=== PATIENT | male | born 1990 | race Caucasian/White ===

== ENCOUNTER 2023-07-16 09:55 | Outpatient (OUT) | payer OTHER, SELFPAY ==
--- NOTE | 2023-07-16 | US_ITS ---
The [address] [address] Patient Name: LULY SANDHU MRN: [id number] date: 1990 Sex: M Assigned Patient Location: [place] Current Patient Location: Accession/Order Number: [id number] Exam Date: 07/16/2023 10:03 Report Date: 07/17/2023 08:40 At the request of: DAVI RODRIGUEZ Procedure: US right upper quadrant EXAM: US right upper quadrant HISTORY: . RUQ ABD PAIN, LUMP R10.11 . COMPARISON: None. TECHNIQUE: Arzola scale and color imaging was performed FINDINGS: The pancreas was obscured due to overlying bowel gas. Scanning of the liver demonstrates mild increased echogenicity of liver consistent with fatty infiltration of liver. The liver is normal in size. Color-flow is noted in the portal and hepatic veins. There is minimal sludge within the gallbladder. No gallstones are noted. No gallbladder wall thickening is noted. Patient had no pain upon scanning over the gallbladder. Common bile duct measures 2 mm. Right kidney measure 11.1 x 5.4 x 5.8 cm. Color-flow is noted. No solid renal cortical masses or hydronephrosis is noted. Scanning of the epigastric region demonstrates no discrete mass solid or cystic within the soft tissues. No fluid is noted in the right upper quadrant. US/US right upper quadrant IMPRESSION: 1. Increased echogenicity of liver consistent with fatty infiltration of liver. 2. Small amount of sludge within the gallbladder. No gallstones. No gallbladder wall thickening. 3. The pancreas was obscured due to overlying bowel gas. 4. No discrete mass was noted in the soft tissues of the upper abdomen regional to the patient's area of concern. Electronically authenticated by: GARETT VENEGAS Date: 07/17/2023 08:40
== END 2023-07-16 09:56 | disposition home or self-care (01) ==
PROVIDERS: PCP Family Medicine; Visit Provider Family Medicine
DX: R10.11 Right upper quadrant pain (principal)
CPT/HCPCS: 76705

== ENCOUNTER 2023-07-21 20:30 | Emergency (ER) | payer OTHER, SELFPAY ==
[2023-07-21 20:35] VITALS: BP 155/89; PULSE 69; TEMP 36.7; O2SAT 98; BMI 30.8
--- OUTSIDE RECORDS SUMMARY | 2023-07-21 20:37 | XMS_ITS | CCD ---
Author Organization [facility] Inform ion Partnership [facility] CliniSywy Care Team Providers Care Bootmaker Name Role Phone KUMARALINGAM, MARINA Unavailable Unavailabl e KUMARALINGAM, MARINA Unavailable Unavailabl e Nickolas Lim Unavailable Unavailable NICKOLAS LIM Unavailable Unavailable MISBrittnee, DR HOU Primary Care Unavailable JAGDISH, MALLORY Attending Unavailable JAGDISH, MALLORY Consulting Unavailable JAGDISH, MALLORY Admitting Unavailable JENIFER BARNARD Consulting Unavailable ABI, DR HERNANDEZ Edwards Consulting Unavailable JENNIFER, DR DAVI Mares Attending Unavailable JENNIFER, DR DAVI Mares Primary Care Unavailable JENNIFER, DR DAVI Mares Admitting Unavailable NADEREJerry, DR DAVI Mares Consulting Unavailable DAVI RODRIGUEZ Primary Care Physician Emigdio HORVATH Attending Unavailable HORVATH, Emigdio Edwards Attending Unavailable HORVATH, Emigdio Edwards Attending Unavailable Horvath, Emigdio Admitting Unavailable Yuliet, Emigdio Attending Unavailable Nickolas Lim Primary Care Unavailable NADDAVI PAL Attending Unavailable Allergies Allergy Classification Reported Allergen(s) Allergy Type Date of Onset Reaction(s) Facility (2 sources) No Known Medication Allergies; Translations: [No Known Medication Allergies] Propensity to adverse reactions to drug (disorder) [facility] Repository Problems Problem Classification Problem Date Documented Date Episodic/Chronic Contraceptive and procreative management (1 source) Contraception status; Translations: [Encounter for other general counseling and advice on contraception] Onset: 04-12-2022 Episodic Nausea and vomiting (1 source) Vomiting, unspecified; Translations: [VOMITING UNSPECIFIED] Onset: 12-11-2021 Episodic Nonspecific chest pain (5 sources) Chest pain, unspecified; Translations: [Other chest pain] Onset: 12-11-2021 Episodic Substance-related disorders (1 source) Nicotine dependence, cigarettes, uncomplicated; Translations: [NICOTINE DEPEND CIGARETTES UNCOMP] Onset: 12-11-2021 Chronic Unclassified (2 sources) Patient encounter status 04-12-2022 Unclassified (1 source) Encounter for sterilization; Translations: [Encounter for sterilization] Onset: 07-02-2022 Results Test Name Value Interpretation Reference Range Facility Ambulatory Visit Summaryon 0 07-16-2022 Ambulatory Visit Summary LULY SANDHU :1990 Visit Date:07/16/2022 Ambulatory Visit Instructions Your Diagnosis Status post vasectomy Your Care Team Attending Physician - Emigdio HORVATH MD Primary Care Physician - DAVI RODRIGUEZ MD Procedures Performed Vasectomy (07/02/2022). Discharge Vitals Heart Rate (Peripheral) 79 Respiratory Rate 16 Blood Pressure 130/86 Height 187 cm Height 74 in Weight 114 kg Weight 250.8 lb BMI 32.6 What to do next You Need to Schedule the Following Appointments Follow Up with YULIET CARR, Emigdio Edwards, URL When: Where: [facility] [address] [place] [address]- Allergies No Known Medication Allergies Problems Ongoing - Any problem that you are currently receiving treatment for. Encounter for vasectomy assessment Status post vasectomy Education Materials Contraception Choices Contraception, also called control, refers to methods or devices that prevent . Hormonal methods Contraceptive implant A contraceptive implant is a thin, plastic tube that contains a hormone that prevents . It is different from an intrauterine device (IUD). It is inserted into the upper part of the arm by a health care provider. Implants can be effective for up to 3 years. Progestin-only injections Progestin-only injections are injections of progestin, a synthetic form of the hormone progesterone. They are given every 3 months by a health care provider. control pills control pills are pills that contain hormones that prevent . They must be taken once a day, preferably at the same time each day. A prescription is needed to use this method of contraception. control patch The control patch contains hormones that prevent . It is placed on the skin and must be changed once a week for three weeks and removed on the fourth week. A prescription is needed to use this method of contraception. Vaginal ring A vaginal ring contains hormones that prevent . It is placed in the vagina for three weeks and removed on the fourth week. After that, the process is repeated with a new ring. A prescription is needed to use this method of contraception. Emergency contraceptive Emergency contraceptives prevent after unprotected sex. They come in pill form and can be taken up to 5 days after sex. They work best the sooner they are taken after having sex. Most emergency contraceptives are available without a prescription. This method should not be used as your only form of control. Barrier methods Male condom A male condom is a thin sheath that is worn over the penis during sex. Condoms keep sperm from going inside a woman's body. They can be used with a sperm-killing substance (spermicide) to increase their effectiveness. They should be thrown away after one use. Female condom A female condom is a soft, loose-fitting sheath that is put into the vagina before sex. The condom keeps sperm from going inside a woman's body. They should be thrown away after one use. Diaphragm A diaphragm is a soft, dome-shaped barrier. It is inserted into the vagina before sex, along with a spermicide. The diaphragm blocks sperm from entering the uterus, and the spermicide kills sperm. A diaphragm should be left in the vagina for 6?8 hours after sex and removed within 24 hours. A diaphragm is prescribed and fitted by a health care provider. A diaphragm should be replaced every 1?2 years, after giving , after gaining more than 15 lb (6.8 kg), and after pelvic surgery. Cervical cap A cervical cap is a round, soft latex or plastic cup that fits over the cervix. It is inserted into the vagina before sex, along with spermicide. It blocks sperm from entering the uterus. The cap should be left in place for 6?8 hours after sex and removed within 48 hours. A cervical cap must be prescribed and fitted by a health care provider. It should be replaced every 2 years. Sponge A sponge is a soft, circular piece of polyurethane foam with spermicide in it. The sponge helps block sperm from entering the uterus, and the spermicide kills sperm. To use it, you make it wet and then insert it into the vagina. It should be inserted before sex, left in for at least 6 hours after sex, and removed and thrown away within 30 hours. Spermicides Spermicides are chemicals that kill or block sperm from entering the cervix and uterus. They can come as a cream, jelly, suppository, foam, or tablet. A spermicide should be inserted into the vagina with an applicator at least 10?15 minutes before sex to allow time for it to work. The process must be repeated every time you have sex. Spermicides do not require a prescription. Intrauterine contraception Intrauterine device (IUD) An IUD is a T-shaped device that is put in a woman's uterus. There are two types: ? Hormone IUD.This type cont (more content not included)... Normal [facility] Patient Educationon 07-17-19 Patient Education Obstetrics and Gynec ology Contraception Choices Contraception, also called control, refers to methods or devices that prevent . Hormonal methods Contraceptive implant A contraceptive implant is a thin, plastic tube that contains a hormone that prevents . It is different from an intrauterine device (IUD). It is inserted into the upper part of the arm by a health care provider. Implants can be effective for up to 3 years. Progestin-only injections Progestin-only injections are injections of progestin, a synthetic form of the hormone progesterone. They are given every 3 months by a health care provider. control pills control pills are pills that contain hormones that prevent . They must be taken once a day, preferably at the same time each day. A prescription is needed to use this method of contraception. control patch The control patch contains hormones that prevent . It is placed on the skin and must be changed once a week for three weeks and removed on the fourth week. A prescription is needed to use this method of contraception. Vaginal ring A vaginal ring contains hormones that prevent . It is placed in the vagina for three weeks and removed on the fourth week. After that, the process is repeated with a new ring. A prescription is needed to use this method of contraception. Emergency contraceptive Emergency contraceptives prevent after unprotected sex. They come in pill form and can be taken up to 5 days after sex. They work best the sooner they are taken after having sex. Most emergency contraceptives are available without a prescription. This method should not be used as your only form of control. Barrier methods Male condom A male condom is a thin sheath that is worn over the penis during sex. Condoms keep sperm from going inside a woman's body. They can be used with a sperm-killing substance (spermicide) to increase their effectiveness. They should be thrown away after one use. Female condom A female condom is a soft, loose-fitting sheath that is put into the vagina before sex. The condom keeps sperm from going inside a woman's body. They should be thrown away after one use. Diaphragm A diaphragm is a soft, dome-shaped barrier. It is inserted into the vagina before sex, along with a spermicide. The diaphragm blocks sperm from entering the uterus, and the spermicide kills sperm. A diaphragm should be left in the vagina for 6?8 hours after sex and removed within 24 hours. A diaphragm is prescribed and fitted by a health care provider. A diaphragm should be replaced every 1?2 years, after giving , after gaining more than 15 lb (6.8 kg), and after pelvic surgery. Cervical cap A cervical cap is a round, soft latex or plastic cup that fits over the cervix. It is inserted into the vagina before sex, along with spermicide. It blocks sperm from entering the uterus. The cap should be left in place for 6?8 hours after sex and removed within 48 hours. A cervical cap must be prescribed and fitted by a health care provider. It should be replaced every 2 years. Sponge A sponge is a soft, circular piece of polyurethane foam with spermicide in it. The sponge helps block sperm from entering the uterus, and the spermicide kills sperm. To use it, you make it wet and then insert it into the vagina. It should be inserted before sex, left in for at least 6 hours after sex, and removed and thrown away within 30 hours. Spermicides Spermicides are chemicals that kill or block sperm from entering the cervix and uterus. They can come as a cream, jelly, suppository, foam, or tablet. A spermicide should be inserted into the vagina with an applicator at least 10?15 minutes before sex to allow time for it to work. The process must be repeated every time you have sex. Spermicides do not require a prescription. Intrauterine contraception Intrauterine device (IUD) An IUD is a T-shaped device that is put in a woman's uterus. There are two types: ? Hormone IUD.This type contains progestin, a synthetic form of the hormone progesterone. This type can stay in place for 3?5 years. ? Copper IUD.This type is wrapped in copper wire. It can stay in place for 10 years. Permanent methods of contraception Female tubal ligation In this method, a woman's fallopian tubes are sealed, tied, or blocked during surgery to prevent eggs from traveling to the uterus. Hysteroscopic sterilization In this method, a small, flexible insert is placed into each fallopian tube. The inserts cause scar tissue to form in the fallopian tubes and block them, so sperm cannot reach an egg. The procedure takes about 3 months to be effective. Another form of control must be used during those 3 months. Male sterilization This is a procedure to tie off the tubes that carry sperm (vasectomy). After the procedure, the man ca (more content not included)... Normal [facility] Urology Office/Clinic Noteon 07-16-2022 Urology Office/Clinic Note History of Present Illness Tests reviewed: reviewed path. I have reviewed the previous health record information and history for this patient from Dr. Horvath. I have reviewed and verified the staff HPI to be accurate for this encounter. There have been no associated fever, chills, flank pain, or blood in the urine. Denies any urinary infections since last encounter. Review of Systems ROS - Provider Constitutional: denies weight loss, denies hot flashes. Eyes: denies eye problems. Gastrointestinal: denies nausea, denies vomiting. Cardiovascular: denies chest pain or angina. Integumentary: no dryness Musculoskeletal: denies musculoskeletal symptoms. ENMT: denies otolaryngeal symptoms. Respiratory: no shortness of breath. Heme/Lymph: denies easy bleeding tendency, denies easy bruising tendency. Psychiatric: no confusion, no anxiety. Genitourinary: See HPI. Physical Exam General Appearance: alert, no distress, well nourished, well developed male. Genitourinary: normal scrotum, normal testes, normal urethra, normal epididymis, normal vas deferens/spermatic cord. Flank Pain: none. Bladder: nonpalpable. Assessment/Plan 1. Status post vasectomy (Z98.52: Vasectomy status) S/p Vasectomy 07/02/22. No sample provided for UA today. He is aware that he is not sterile until he has 2 negative semen analysis which will be checked after about two months and after 20-30 ejaculations. He should deliver the semen specimen to the lab within 30 min. of ejaculation and he will call one week later to get the results. Follow up PRN. Pt understands and agrees with plan. Follow-up With When Contact Information YULIET CARR, Emigdio Edwards, URL [facility] [address], [place] [address]- Additional Instructions: PRN Patient Education Contraception Choices I, Melissa Beaulieu, personally scribed for Dr. Horvath on 07/16/2022 08:09:09. . Documentation recorded by the scribe, Melissa Beaulieu, accurately reflects the services(s) I performed and decisions made by me. Authenticated by Dr. Horvath on 07/16/2022 08:26:19. Problem List/Past Medical History Ongoing Encounter for vasectomy assessment Status post vasectomy Historical No qualifying data Procedure/Surgical History Vasectomy (07/02/2022). Medications No active medications Allergies No Known Medication Allergies Social History Tobacco 4 or less cigarettes(less than 1/4 pack)/day in last 30 days Tobacco Use:. Cigarettes, 04/12/2022 Family History Family history is negative Immunizations Vaccine Date Status measles/mumps/rubella virus vaccine 10/23/2004 Recorded DTaP, unspecified formulation 09/20/1996 Recorded Hib, unspecified formulation 10/09/1993 Recorded DTaP, unspecified formulation 10/09/1993 Recorded measles/mumps/rubella virus vaccine 10/31/1992 Recorded Hib, unspecified formulation 10/31/1992 Recorded Hib, unspecified formulation 03/28/1992 Recorded Hib, unspecified formulation 1991 Recorded Normal [facility] Comment on above: Result Comment: Elec tronically Signed By: Emigdio HORVATH MD\.br\Date and Time Signed: 07/16/22 08:26 EDT\.br\Electronically Co-Signed By: Melissa Beaulieu\.br\Date and Time Co-Signed: 07/16/22 08:10 EDT Pathology Noteon 07-08-2022 Pathology Note [id number]:127 Normal [facility] Operative Reporton Operative Report [id number]:127 [facility] 07-02-2022 L ------ Specimen: [id number] Received: 07/02/22 Status: DEREK Middleton Num: [id number] Spec Type: Surgical Subm Dr: Emigdio Horvath MD Tissues: A VAS DEFERENS - sterilization (LT VAS DEF) B VAS DEFERENS - sterilization (RT VAS DEF) Procedures: Nelia MARTINEZ/Rohit L2/2 Age/ Patient Sex Location Account Attending Physician Luly Sandhu 32/M ALEXANDRA [id number] Emigdio Horvath MD SPEC NUM: [id number] RECD: 07/02/22 STATUS: DEREK MIDDLETON NUM: [id number] CHING: 07/02/22- SUBM DR: Emigdio Horvath MD ENTERED: 07/02/22 [facility] DR: [facility] SPEC TYPE: Surgical DEPT: S ENTERED BY: [id number] RECV BY: [id number] ORDERED: HE/2, Gross/Micro L2/2 ORDERED: HE/2, Gross/Micro L2/2 Pathological Diagnosis A. Vas deferens, left, vasectomy: - Segment of vas deferens with complete lumen. B. Vas deferens, right, vasectomy: - Segment of vas deferens with complete lumen. Clinical Information Sterilization Gross Description A. Received in formalin labeled with the patient's name, number and left vas deferens segment is a 0.4 x 0.3 x 0.3 cm james mathews tubular tissue. Entirely submitted in one cassette labeled A1. B. Received in formalin labeled with the patient's name, number and right vas deferens segment is a 0.8 x 0.3 x 0.3 cm james mathews tubular tissue with a pinpoint lumen on cut section. Entirely submitted in one cassette labeled B1. Specimen: [id number] Received: 07/02/22 Status: DEREK Middleton Num: [id number] Spec Type: Surgical Subm Dr: Emigdio Horvath MD Tissues: A VAS DEFERENS - sterilization (LT VAS DEF) B VAS DEFERENS - sterilization (RT VAS DEF) Procedures: HE/2, Gross/Micro L2/2 Patient: Luly Sandhu S [id number] (Continued) Specimen: [id number] Received: 07/02/22 (Continued) Signed (signature on file) Sixto Obregon MD 07/05/22 0940 Specimen: [id number] Received: 07/02/22 Status: DEREK Middleton Num: [id number] Spec Type: Surgical Subm Dr: Emigdio Horvath MD Tissues: A VAS DEFERENS - sterilization (LT VAS DEF) B VAS DEFERENS - sterilization (RT VAS DEF) Procedures: Nelia MARTINEZ/Rohit L2/2 Patient: PhoebeLuly S [id number] (Continued) Specimen: [id number] Received: 07/02/22 (Continued) Microscopic Description A. One H E slide reviewed. The microscopic examination confirms the diagnosis. B. One H E slide reviewed. The microscopic examination confirms the diagnosis. CPT Codes 53308?2 Specimen: [id number] Received: 07/02/22 Status: DEREK Middleton Num: [id number] Spec Type: Surgical Subm Dr: Emigdio Horvath MD Tissues: A VAS DEFERENS - sterilization (LT VAS DEF) B VAS DEFERENS - sterilization (RT VAS DEF) Procedures: HE/2, Gross/Micro L2/2 Patient: Luly Sandhu [id number] (Continued) Signed (signature on file) Sixto Obregon MD 07/05/22 0940 [facility] Formson 04-14-2022 Forms [id number]#[id number]:127 [facility] Consent for Procedure/Surger yon 04-13-2022 Consent for Procedure/Surgery [id number]:127 [facility] Patient Educationon 04-12-19 Patient Education Urology Vasectomy, Care After This sheet gives you information about how to care for yourself after your procedure. Your health care provider may also give you more specific instructions. If you have problems or questions, contact your health care provider. What can I expect after the procedure? After your procedure, it is common to have: ? Mild pain, swelling, redness, or discomfort in your scrotum. ? Some blood coming from your incisions or puncture sites for one or two days. ? Blood in your semen. Follow these instructions at home: Medicines ? Take njgo-dsc-qzdcyap and prescription medicines only as told by your health care provider. ? Avoid taking NSAIDs such as aspirin and ibuprofen, because these medicines can make bleeding worse. Activity ? For the first 2 days after surgery, avoid physical activity and exercise that require a lot of energy. Ask your health care provider what activities are safe for you. ? Do not participate in sports or perform heavy physical labor until your pain has improved, or until your health care provider says it is okay. ? Do not ejaculate for at least 1 week after the procedure, or as long as directed. ? You may resume sexual activity 7?10 days after your procedure, or when your health care provider approves. Use a different method of control (contraception) until you have had test results that confirm that there is no sperm in your semen. Scrotal support ? Use scrotal support, such as a jock strap or underwear with a supportive pouch, as needed for one week after your procedure. ? If you feel discomfort in your scrotum, you may remove the scrotal support to see if the discomfort is relieved. Sometimes scrotal support can press on the scrotum and cause or worsen discomfort. ? If your skin gets irritated, you may add some germ-free (sterile), fluffed bandages or a clean washcloth to the scrotal support. General instructions ? Put ice on the injured area: ? Put ice in a plastic bag. ? Place a towel between your skin and the bag. ? Leave the ice on for 20 minutes, 2?3 times a day. ? Check your incisions or puncture sites every day for signs of infection. Check for: ? Redness, swelling, or pain. ? Fluid or blood. ? Warmth. ? Pus or a bad smell. ? Leave stitches (sutures) in place. The sutures will dissolve on their own and do not need to be removed. ? Keep all follow-up visits as told by your health care provider. This is important because you will need a test to confirm that there is no sperm in your semen. Multiple ejaculations are needed to clear out sperm that were beyond the vasectomy site. You will need one test result showing that there is no sperm in your semen before you can resume unprotected sex. This may take 2?4 months after your procedure. ? Do not drive for 24 hours if you were given a sedative to help you relax. Contact a health care provider if: ? You have redness, swelling, or more pain around your incision or puncture site, or in your scrotum area in general. ? You have bleeding from your incision or puncture site. ? You have pus or a bad smell coming from your incision or puncture site. ? You have a fever. ? Your incision or puncture site opens up. Get help right away if: ? You develop a rash. ? You have difficulty breathing. Summary ? After your procedure it is common to have mild pain, swelling, redness, or discomfort in your scrotum. ? Avoid physical activity and exercise that requires a lot of energy for the first 2 days after surgery. ? Put ice on the injured area. Leave the ice on for 20 minutes, 2?3 times a day. ? Do not drive for 24 hours if you were given a sedative to help you relax. This information is not intended to replace advice given to you by your health care provider. Make sure you discuss any questions you have with your health care provider. Document Released: 08/20/2005 Document Revised: 01/13/2018 Document Reviewed: 04/29/2017 [employer] Patient Education ? 2019 [employer] [facility] Urology Office/Clinic Noteon 04-12-2022 Urology Office/Clinic Note Chief Complaint New pT * VAS Consult HPI Staff Pt is a new pt, never before seen in our office. Here today for a Vasectomy Consultation. Vasectomy booklet has been given to the pt. Pt has 3 kids. Denies any HX of scrotal/penile/testicular problems. Denies any complaints urinating. History of Present Illness Tests reviewed: reviewed UA. I have reviewed the previous health record information and history for this patient from Dr. Horvath. I have reviewed and verified the staff HPI to be accurate for this encounter. There have been no associated fever, chills, flank pain, or blood in the urine. Denies any urinary infections since last encounter. Review of Systems PHQ Score Initial Depression Screen Score: 0 ROS - Provider Constitutional: denies weight loss, denies hot flashes. Eyes: denies eye problems. Gastrointestinal: denies nausea, denies vomiting. Cardiovascular: denies chest pain or angina. Integumentary: no dryness Musculoskeletal: denies musculoskeletal symptoms. ENMT: denies otolaryngeal symptoms. Respiratory: no shortness of breath. Heme/Lymph: denies easy bleeding tendency, denies easy bruising tendency. Psychiatric: no confusion, no anxiety. Genitourinary: See HPI. Physical Exam Vitals & Measurements HT: 74 in HT: 187 cm WT: 114 kg WT: 250.8 lb BMI: 32.6 General Appearance: alert, no distress, well nourished, well developed male. Genitourinary: normal scrotum, normal testes, normal urethra, normal epididymis, normal vas deferens/spermatic cord. Flank Pain: none. Bladder: nonpalpable. Assessment/Plan 1. Encounter for vasectomy assessment (Z30.09: Encounter for other general counseling and advice on contraception) Luly is a 31 yo male new patient here for vasectomy consultation. UA today negative for blood and infection. Educational pamphlet provided. Pt has 3 kids. Denies any HX of scrotal/penile/testicular problems. Denies any complaints urinating. PE: wnl. Will schedule Vasectomy. The procedural risks, benefits, details, and treatment alternatives of sterilization have been discussed with the patient today. He understands this procedure is considered permanent, even though vasectomy reversals can be performed. There is no guarantee of successful reversal resulting in , however. Risks discussed include bleeding, infection, failure with in about 1:2500, post-vasectomy syndrome (chronic pain in the testicle or scrotum), possible association with prostate cancer development in the future, and erection problems, among others. Despite these risks, he wishes to proceed. He also understands that he is not considered sterile until a negative semen sample has been received after about 2-3 months after the vasectomy. Full informed consent has been obtained. Will order Local anesthesia. Follow-up With When Contact Information YULIET CARR, Emigdio Edwards, [facility] [address], [place] [address]- Additional Instructions: schedule vasectomy Patient Education Vasectomy, Care After I, Melissa Beaulieu, personally scribed for Dr. Horvath on 04/12/2022 13:19:54. . Documentation recorded by the scribe, Melissa Beaulieu, accurately reflects the services(s) I performed and decisions made by me. Authenticated by Dr. Horvath on 04/12/2022 13:27:58. Problem List/Past Medical History Ongoing Encounter for vasectomy assessment Historical No qualifying data Procedure/Surgical History None. Medications No active medications Allergies No Known Medication Allergies Social History Tobacco 4 or less cigarettes(less than 1/4 pack)/day in last 30 days Tobacco Use:. Cigarettes, 04/12/2022 Family History Family history is negative Immunizations Vaccine Date Status measles/mumps/rubella virus vaccine 10/23/2004 Recorded DTaP, unspecified formulation 09/20/1996 Recorded Hib, unspecified formulation 10/09/1993 Recorded DTaP, unspecified formulation 10/09/1993 Recorded measles/mumps/rubella virus vaccine 10/31/1992 Recorded Hib, unspecified formulation 10/31/1992 Recorded Hib, unspecified formulation 03/28/1992 Recorded Hib, unspecified formulation 1991 Recorded Normal [facility] Comment on above: Result Comment: Elec tronically Signed By: Emigdio HORVATH MD\.br\Date and Time Signed: 04/12/22 13:28 EST\.br\Electronically Co-Signed By: Melissa Beaulieu\.br\Date and Time Co-Signed: 04/12/22 13:21 EST NM STRESS/REST MULTIon 01-27 NM STRESS/REST MULTI Patient: LULY SANDHU Exam Date: 01/27/2022 : 1990 Gender:M Ordering : DR DAVI RODRIGUEZ . Admission #: [id number] Family : Order #: [id number] CLICK HERE TO VIEW EXAM RADIOLOGY REPORT PROCEDURE: RADIONUCLIDE IMAGING STRESS/REST MULTI COMPARISON: None. INDICATIONS: Chest pain TECHNIQUE: Exam Description: Stress/Rest one day protocol gated SPECT Rest Imagin.9 mCi Tc-99m Cardiolite IV on 01/27/2022 Stress Imaging 30.4 mCi Tc-99m Cardiolite IV on 01/27/2022 Exercise Protocol: Michael Heart Rate (bpm): Rest: 65 Max: 181 PMHR: 95 Blood Pressure: Rest: 122/74 Max: 154/78 Exercise Time: Minutes: 10 Seconds: 45 Stage Reached: Stage: 4 Mets 13.4 Symptoms: Rest and peak stress ECG findings were normal and the exercise portion of the study was normal per attending physician Dr. Huitron . For more details please see separate cardiac stress test report. FINDINGS: QUALITY OF STUDY: Excellent. PERFUSION DEFECT: None. LOCATION: N/A SIZE: N/A. SEVERITY: N/A. TYPE: N/A. WALL MOTION: Normal. LV SIZE: Normal. 123 mL. TID / TCD: None; 0.9 LVEF: Normal. Calculated EF 64%. SUMMARY: Myocardial perfusion imaging study is NORMAL. CONCLUSION: 1. Normal nuclear medicine myocardial perfusion scan. 2. Left ventricle size approaches upper limits of normal. Dictated by: Hernandez Elliott M.D. on 01/27/2022 at 15:58 Approved by: Hernandez Elliott M.D. on 01/27/2022 at 16:00 [address] [facility] CARDIAC IVETT 3-6on 2 CK [Catalytic activity/Vol] 125 U/L Normal 39-[address] [facility] Comment on above: Performed By: #### C MREP #### [facility] [address] [address] [address] Coby Singleton CK.MB [Mass/Vol] 0.61 ng/mL Normal <=3.60 [facility] Comment on above: Performed By: #### C MREP #### [facility] [address] [address] [address] Coby Singleton HSTROP 4.9 pg/mL Normal 4.0-76.1 [facility] Comment on above: Result Comment: CUT- OFF POINTS HAVE BEEN ESTABLISHED BASED ON THE FOURTH UNIVERSAL DEFINITIONS OF MYOCARDIAL INFARCTION. THE UPPER REFERENCE LIMIT (URL) OF TROPONIN, DEFINED THE 99TH PERCENTILE OF cTnI DISTRIBUTION IN A REFERENCE POPULATION, HAS BEEN CONFIRMED THE DECISION THRESHOLD FOR CO DIAGNOSIS. Performed By: #### C MREP #### [facility] [address] [address] [address] Coby Singleton CARDIAC IVETT ADMITon 022 CK [Catalytic activity/Vol] 132 U/L Normal 39-[address] [facility] Comment on above: Performed By: #### C MADM, BMP #### [facility] [address] [place] [address] Dr. Coby Singleton CK.MB [Mass/Vol] 0.76 ng/mL Normal <=3.60 [facility] Comment on above: Performed By: #### C MADM, BMP #### [facility] [address] [place] [address] Dr. Coby Singleton HSTROP 4.8 pg/mL Normal 4.0-76.[address] [facility] Comment on above: Result Comment: CUT- OFF POINTS HAVE BEEN ESTABLISHED BASED ON THE FOURTH UNIVERSAL DEFINITIONS OF MYOCARDIAL INFARCTION. THE UPPER REFERENCE LIMIT (URL) OF TROPONIN, DEFINED THE 99TH PERCENTILE OF cTnI DISTRIBUTION IN A REFERENCE POPULATION, HAS BEEN CONFIRMED THE DECISION THRESHOLD FOR CO DIAGNOSIS. Performed By: #### C MADM, BMP #### [facility] [address] [place] [address] Dr. Coby Singleton EDILBERTO 50 ng/mL Normal 16-96 [facility] Comment on above: Performed By: #### C MADM, BMP #### [facility] [address] [place] [address] Dr. Coby Singleton CBC AUTO DIFFon 12-09-2021 BASO # 0.0 103/ul Normal 0.0-0.1 [facility] Comment on above: Performed By: #### C BC #### [facility] [address] [place] [address] Dr. Coby Singleton Basophils/100 WBC (Bld) 0.4 % Normal 0.2-2.0 [facility] Comment on above: Performed By: #### C BC #### [facility] [address] [place] [address] Dr. Coby Singleton EO # 0.1 103/ul Normal 0.0-0.7 [facility] Comment on above: Performed By: #### C BC #### [facility] [address] [place] [address] Dr. Coby Singletno Eosinophils/100 WBC (Bld) 1.6 % Normal 0.9-7.0 [facility] Comment on above: Performed By: #### C BC #### [facility] [address] [place] [address] Dr. Coby Singleton Erythrocyte distribution width (RBC) [Ratio] 12.2 % Normal 11.0-15.0 [facility] Comment on above: Performed By: #### C BC #### [facility] [address] [place] [address] Dr. Coby Singleton Hematocrit (Bld) [Volume fraction] 42.8 % Normal 42.0-54.0 [facility] Comment on above: Performed By: #### C BC #### [facility] [address] [place] [address] Dr. Coby Singleton Hemoglobin (Bld) [Mass/Vol] 14.7 g/dL Normal 14.0-18.0 [facility] Comment on above: Performed By: #### C BC #### [facility] [address] [place] [address] Dr. Coby Singleton IG # 0.03 10e3/ul Normal 0.00-0.03 [facility] Comment on above: Performed By: #### C BC #### [facility] [address] [place] [address] Dr. Coby Singleton IG % 0.4 % Normal 0.0-0.5 [facility] Comment on above: Performed By: #### C BC #### [facility] [address] [place] [address] Dr. Coby Singleton LYMPH # 2.4 103/ul Normal 1.2-3.8 [facility] Comment on above: Performed By: #### C BC #### [facility] [address] [place] [address] Dr. Coby Singleton Lymphocytes/100 WBC (Bld) 29.9 % Normal 20.5-60.0 [facility] Comment on above: Performed By: #### C BC #### [facility] [address] [place] [address] Dr. Coby Singleton MANUAL DIFF REQ NO Normal [facility] Comment on above: Performed By: #### C BC #### [facility] [address] [place] [address] Dr. Coby Singleton MCH (RBC) [Entitic mass] 29.5 pg Normal 25.9-34.0 [facility] Comment on above: Performed By: #### C BC #### [facility] [address] [place] [address] Dr. Coby Singleton MCHC (RBC) [Mass/Vol] 34.3 g/dL Normal 29.9-35.2 [facility] Comment on above: Performed By: #### C BC #### [facility] [address] [place] [address] Dr. Coby Singleton MCV (RBC) [Entitic vol] 85.8 fL Normal 80.0-94.0 [facility] Comment on above: Performed By: #### C BC #### [facility] [address] [address] [address] Coby Singleton MONO # 0.6 103/ul Normal 0.3-0.8 [facility] Comment on above: Performed By: #### C BC #### [facility] [address] [address] [address] Coby Singleton Monocytes/100 WBC (Bld) 7.6 % Normal 1.7-12.0 [facility] Comment on above: Performed By: #### C BC #### [facility] [address] [place] [address] Dr. Coby Singleton NEUT # 4.7 103/ul Normal 1.4-6.[address] [facility] Comment on above: Performed By: #### C BC #### [facility] [address] [place] [address] Dr. Coby Singleton Neutrophils/100 WBC (Bld) 60.1 % Normal 43.0-75.0 [facility] Comment on above: Performed By: #### C BC #### [facility] [address] [place] [address] Dr. Coby Singleton Platelet mean volume (Bld) [Entitic vol] 10.5 fL Normal 9.5-13.[address] [facility] Comment on above: Performed By: #### C BC #### [facility] [address] [place] [address] Dr. Coby Singleton PLT 267 103/ul Normal 150-[address] [facility] Comment on above: Performed By: #### C BC #### [facility] [address] [place] [address] Dr. Coby Singleton RBC 4.99 106/ul Normal 4.70-6.[address] [facility] Comment on above: Performed By: #### C BC #### [facility] [address] [place] [address] Dr. Coby Singleton WBC 7.9 103/ul Normal 4.0-11.[address] [facility] Comment on above: Performed By: #### C BC #### [facility] [address] [place] [address] Dr. Coby Singleton D-DIMERon 12-09-2021 D-DIMER 0.19 mg/L FEU Normal <=0.59 [facility] Comment on above: Performed By: #### D DIM #### [facility] [address] [place] [address] Dr. Coby Singleton D-DIMER COMMENTS SEE BELOW Normal [facility] Comment on above: Result Comment: Incr eases in D-Dimer concentration observed with thromboembolic events can be variable due to localization, size, and age of the thrombus. Therefore, a thromboembolic event cannot be diagnosed with certainty on the basis of the reference range. D-Dimers may also be elevated for a variety of disorders including: advanced age, , coronary disease, cancer, liver disease, infection, inflammation, hematoma, DIC, trauma, post-surgery, diabetes, thrombolytic or anticoagulant therapy, stress, and generalized hospitalization. Performed By: #### D DIM #### [facility] [address] [place] [address] Dr. Coby Singleton PROF CHEM 8 (BAS METB)on Anion gap [Moles/Vol] 8.5 mmol/L Normal [facility] Comment on above: Performed By: #### C MELY, BMP #### [facility] [address] [place] [address] Dr. Coby Singleton Calcium [Mass/Vol] 8.7 mg/dL Normal 8.5-10.1 [facility] Comment on above: Performed By: #### C MELY, BMP #### [facility] [address] [place] [address] Dr. Coby Singleton Chloride [Moles/Vol] 109 mmol/L Critically high 98-[address] [facility] Comment on above: Performed By: #### C MELY, BMP #### [facility] [address] [place] [address] Dr. Coby Singleton CO2 [Moles/Vol] 23.4 mmol/L Normal 21.0-32.0 [facility] Comment on above: Performed By: #### C MELY, BMP #### [facility] [address] [address] [address] Coby Singleton Creatinine [Mass/Vol] 1.14 mg/dL Normal 0.70-1.30 [facility] Comment on above: Performed By: #### C MELY, BMP #### [facility] [address] [address] [address] Coby Singleton EGFR-AF KOSOVAN >60 Normal >=60 [facility] Comment on above: Performed By: #### C MELY, BMP #### [facility] [address] [address] [address] Coby Singleton EGFR-NON AF KOSOVAN >60 Normal >=60 [facility] Comment on above: Performed By: #### C MELY, BMP #### [facility] [address] [address] [address] Coby Singleton Glucose [Mass/Vol] 100 mg/dL Normal 74-106 [facility] Comment on above: Performed By: #### C MELY, BMP #### [facility] [address] [address] [address] Coby Singleton Potassium [Moles/Vol] 4.9 mmol/L Normal 3.5-5.1 [facility] Comment on above: Performed By: #### C MELY, BMP #### [facility] [address] [place] [address] Dr. Coby Singleton Sodium [Moles/Vol] 136 mmol/L Normal 136-145 [facility] Comment on above: Performed By: #### C MELY, BMP #### [facility] [address] [place] [address] Dr. Coby Singleton Urea nitrogen [Mass/Vol] 17.0 mg/dL Normal 7.0-18.0 [facility] Comment on above: Performed By: #### C MELY, BMP #### [facility] [address] [place] [address] Dr. Coby Singleton Urea nitrogen/Creatinine [Mass ratio] 14.9 mg/mg Normal [facility] Comment on above: Performed By: #### C MELY, BMP #### [facility] [address] [place] [address] [id number] [address] Coby Singleton XR CHEST 2 Von 12-09-2021 XR CHEST 2 V EXAM: XR CHEST 2 V COMPARISON: None available. CLINICAL INDICATION: Chest pain. FINDINGS: The cardiomediastinal silhouette is within normal limits. No focal consolidation. No pleural effusion. No pneumothorax. No evidence of acute osseous abnormality. IMPRESSION: No acute findings. Electronically authenticated by: JENIFER BARNARD Date: 2021-12-09 20:51 Normal [facility] .eGFRon 08-17-2017 eGFR (non-black) mL/min/{1.73_m2} Normal >=60 [facility] Comment on above: Result Comment: Resu lt = 0-14.9 mL/min/1.73 m2 Kidney failure or DialysisResult = 15-29 mL/min/1.73 m2 Severe decrease in GFRResult = 30-59 mL/min/1.73 m2 Moderate decrease in GFRResult >= 60 mL/min/1.73 m2 Normal or increased GFRChronic kidney disease is defined as either kidney damage or GFR < 60 mL/min/1.73 m2 for >= 3 months. Kidney damage is defined as pathologic abnormalities or markers of damage including abnormalities in blood or urine tests or imaging studies. This GFR is NOT used for medication dosing. Performed By: #### C BC ####[address] [address] Result Comment: Resu lt = 0-14.9 mL/min/1.73 m2 Kidney failure or DialysisResult = 15-29 mL/min/1.73 m2 Severe decrease in GFRResult = 30-59 mL/min/1.73 m2 Moderate decrease in GFRResult >= 60 mL/min/1.73 m2 Normal or increased GFR CBCon 08-17-2017 Erythrocyte distribution width Auto Ratio (RBC) 13.7 % Normal 11.6-14.8 [facility] Comment on above: Performed By: #### C BC ####[address] [address] Erythrocytes (RBC) 4.72 x10*6/mcL Normal 4.30-5.80 [facility] Comment on above: Performed By: #### C BC ####[address] [address] Hematocrit (HCT) 42.5 % Normal 41.0-53.0 [facility] Comment on above: Performed By: #### C BC ####[address] [address] Hemoglobin mass conc (Bld) 14.7 g/dL Normal 13.5-17.5 [facility] Comment on above: Performed By: #### C BC ####[address] [address] MCH 31.1 pg Normal 27.0-35.0 [facility] Comment on above: Performed By: #### C BC ####[address] [address] MCHC mass conc (RBC) 34.5 % Normal 31.0-37.0 [facility] Comment on above: Performed By: #### C BC ####[address] [address] MCV 90.0 fL Normal 80.0-100.0 [facility] Comment on above: Performed By: #### C BC ####[address] [address] Platelet mean volume (PMV) 9.2 fL Normal 6.7-10.6 [facility] Comment on above: Performed By: #### C BC ####[address] [address] Platelets 222 x10*3/mcL Normal 150-350 [facility] Comment on above: Performed By: #### C BC ####[address] [address] WBC (Leukocytes) 6.9 x10*3/mcL Normal 4.5-11.[address] [facility] Comment on above: Performed By: #### C BC ####[address] [address] CMPon 08-17-2017 Alanine aminotransferase (ALT) 13 U/L Low 17-63 [facility] Comment on above: Performed By: #### C BC ####[address] [address] Albumin 3.6 g/dL Normal 3.2-4.9 [facility] Comment on above: Performed By: #### C BC ####[address] [address] Albumin/Globulin Ratio 1.3 {ratio} Normal 1.1-2.2 [facility] Comment on above: Performed By: #### C BC ####[address] [address] Alk Phos 90 IU/L Normal 32-91 [facility] Comment on above: Performed By: #### C BC ####[address] [address] Anion gap 10 mmol/L Normal 7-17 [facility] Comment on above: Performed By: #### C BC ####[address] [address] Aspartate aminotransferase (AST) 19 U/L Normal 15-41 [facility] Comment on above: Performed By: #### C BC ####[address] [address] Bili Total 0.7 mg/dL Normal 0.3-1.2 [facility] Comment on above: Performed By: #### C BC ####[address] [address] BUN/Creatinine Ratio 16.5 mg/mg Normal 15.0-25.0 [facility] Comment on above: Performed By: #### C BC ####[address] [address] Calcium 8.6 mg/dL Normal 8.5-10.3 [facility] Comment on above: Performed By: #### C BC ####[address] [address] Chloride 110 mmol/L Normal 98-110 [facility] Comment on above: Performed By: #### C BC ####[address] [address] CO2 23 mmol/L Normal 22-32 [facility] Comment on above: Performed By: #### C BC ####[address] [address] Creatinine 0.91 mg/dL Normal 0.61-1.24 [facility] Comment on above: Performed By: #### C BC ####[address] [address] Glucose mass conc 97 mg/dL Normal 74-118 [facility] Comment on above: Performed By: #### C BC ####[address] [address] Potassium molar conc 4.7 mmol/L Normal 3.4-4.8 [facility] Comment on above: Performed By: #### C BC ####[address] [address] Protein 6.3 g/dL Low 6.5-8.1 [facility] Comment on above: Performed By: #### C BC ####[address] [address] Sodium 138 mmol/L Normal 133-142 [facility] Comment on above: Performed By: #### C BC ####[address] [address] Urea nitrogen 15 mg/dL Normal 8-26 [facility] Comment on above: Performed By: #### C BC ####[address] [address] Discharge Summaryon 08-18-19 18 Discharge Summary Admission Informatio n Date of Arrival: 08/16/2017 Date of Discharge: 08/17/2017 Admitting Dx: Electric injury in an adult, palpitations Discharge Dx: electric injury in an adult, palpitations Consulting Providers: None History of Present Illness This is a 27-year-old male patient who was at work at [employer] and took a shock from 1000 V of electricity. He states he did not lose consciousness but immediately after the shock he was confused he states he still feels cloudy and very dizzy if he does too much activity. His chest feels tight but otherwise no pain no trouble breathing. He was given a liter of normal saline in the emergency department. His blood pressure is mildly elevated at 153/74 at the time of my evaluation heart rate is in the 70s. Skin was unremarkable is no evidence of wounds secondary to electrical current injury. He does have tattoos otherwise no abnormalities. He currently lives about an hour from this facility and normally follows with Dr. Lim. He drinks alcohol on occasion but not daily and only smokes cigarettes when drinking alcohol. No significant family history other than heart attacks of father and grandfather. Primary Care Provider: Nickolas Lim DO [1]Hospital Course Was admitted after suffering an electrical shock at work thousand volts of electricity to the CCU for telemetry monitoring. He was monitored overnight no evidence of ectopy or abnormal rhythms were done cardiac enzymes were trended and he also had an echocardiogram also showing a normal heart function as well as 3 EKG showing normal sinus rhythm. Patient initially was dizzy and slightly confused however this improved with IV hydration. He is being discharged home in improved condition he can return to work tomorrow 08/18/2017. He was instructed to follow-up with his primary care provider in the next 1 week. Significant Findings EKG 08/16/2017: Normal sinus rhythm Chest x-ray 08/16/2017: IMPRESSION: No acute cardiopulmonary process. [2] Echocardiogram 08/16/2017: CONCLUSIONS SUMMARY: 1. Left ventricle: Systolic function is normal. The estimated ejection fraction is 55-60%. 2. Normal left ventricular function. 3. Normal right ventricular function. 4. Normal chamber dimensions. 5. Normal valve structure with no significant stenosis or regurgitation. [3] Labs (Last four charted values) WBC 6.9 (AUG 17) 7.7 (AUG 16) Hgb 14.7 (AUG 17) 15.1 (AUG 16) Hct 42.5 (AUG 17) 44.1 (AUG 16) Plt 222 (AUG 17) 232 (AUG 16) Na 138 (AUG 17) 138 (AUG 16) K 4.7 (AUG 17) 4.5 (AUG 16) CO2 23 (AUG 17) 22 (AUG 16) Cl 110 (AUG 17) 110 (AUG 16) Cr 0.91 (AUG 17) 1.00 (AUG 16) BUN 15 (AUG 17) 18 (AUG 16) Glucose Random 97 (AUG 17) 96 (AUG 16) Medications Home No active home medications Prescriptions No active Prescriptions Procedures and Treatment Provided IV Fluids, telemetry monitoring, lab monitoringPhysical Exam Vitals & Measurements T: 36.4 ?C (Oral) RR: 16 BP: 127/77 SpO2: 98% WT: 96.3 kg DOSE WT: 30.3 kg Lungs: Clear to auscultation, non-labored respiration Heart: Normal rate, regular rhythm, no murmur, gallop or edema. Abdomen: Soft, non-tender, non-distended, normal bowel sounds, no masses. Mental Status: Alert and oriented x3. Skin: pink warm dry and intact Peripheral: 2+ dorsalis pedal pulses and 2+ radial pulses Musculoskeletal: 5/5 strength jude ue and 5/5 dorsi/plantar flexion FROMx4 Additional Vitals Peripheral Pulse Rate: 50 bpm LowDischarge Plan Orders: acetaminophen, 650 mg, Oral, Tab, q6hr, PRN fever, First Dose: 08/16/17 12:06:00 EDT, Dispense From Location: [facility] acetaminophen, 650 mg, Oral, Tab, q6hr, PRN mild pain [1-3 on pain scale], First Dose: 08/16/17 12:06:00 EDT, Dispense From Location: [facility] enoxaparin, 40 mg, Subcutaneous, Injection, Daily, First Dose: 08/17/17 9:00:00 EDT, Dispense From Location: [facility] ondansetron, 4 mg, IV Push, Injection, q4hr, PRN nausea, First Dose: 08/16/17 12:06:00 EDT, Dispense From Location: [facility] sodium chloride, 10 mL, IV Push, Injection, As Indicated, PRN flush, First Dose: 08/16/17 12:06:00 EDT, Dispense From Location: [facility] Activity Restrictions Alarm Limit Settings AMI 24 Hour (CPK only) Coughing/Deep Breathing Diet Instruction Discharge Patient Discontinue IV EKG Follow up Intake and Output Notify Provider Notify Provider Orthostatic Vital Signs Oxygen Therapy Patient Tray Place in Observation Regular Diet Regular Diet Resuscitation Status Telemetry Treatment Instruction Treatment Instruction Up ad Lorna Vital Signs VTE Prophylaxis Evaluation Weight Patient Discharge Condition Stable Discharge Disposition To Home Total time for discharge and discharge planning : 30 minutes Thank you for allowing me to participate in this patient's care. All questions were answered.[1] History and Physical--Hospitalist; Татьяна Larry CNP 08/16/2017 14:09 EDT[2] XR Chest 1 View; AlexiaDari Suzan 08/16/2017 09:18 EDTElectronically signed by W Татьяна Rapp CNP 08/17/17 08:48 EDT Normal [facility] Inpatient Clinical Summaryon 08-17-2017 Inpatient Clinical Summary [address] [address] [address]Bpbchwrx SummaryPerson InformationName: Geronimo Sandhutodd Bustamante Age: 27 Years : 1990Sex: Male PCP: Nickolas Lim DOMarital Status:Single Phone: PCP: [phone]:White Ethnicity:Not or Language:EnglishMRN: [id number] Visit Id: Reason:Tachycardia; Tachycardia Speciality: Acuity:Enc Type: Observation Med Service: CardiologyArrival:08/16/2017 08:47:00 Discharge: Dispo Type: Place in ObservationAddress:[address] [place] [id number]: 1:Electrical injury in adult; 2:PalpitationsDischarged To:Home Treatments:Devices/Equipme nt:Professional Skilled Services:Special Services and Community Resources:Mode of Discharge Transportation:Discharge OrdersActivity Restrictions No RestrictionsDiet Instruction Regular home dietFollow up 08/17/17 8:38:00 EDT, Provider: Nickolas Lim DO, 1 weekAllergies No Known Medication AllergiesFunctional Status:Sensory Deficits:History of Falls:Mobility Assistance Prior to Admission:ADLs: IndependentGait: SteadyAmbulation Assist:Assistive Device: NoneSpecial Orthopedic Devices:Current Level of Assistance for Self-Care/Mobility:Cogniti ve Status:Orientation:Orienta tion Assessment Oriented x 4Level of Consciousness: AlertCharacteristics of Speech: ClearAspiration Risk: NoneAffect/Behavior: Appropriate, Calm, CooperativeLaboratory or Other Results This Visit (last charted value for your 08/16/2017 visit) Hematology 08/17/2017 5:03 AM WBC: 6.9 x10 RBC: 4.72 x10 MCV: 90.0 fL -- Normal range between ( 80.0 and 100.0 ) MCHC: 34.5 % -- Normal range between ( 31.0 and 37.0 ) Hct: 42.5 % -- Normal range between ( 41.0 and 53.0 ) MCH: 31.1 pg -- Normal range between ( 27.0 and 35.0 ) Hgb: 14.7 g/dL -- Normal range between ( 13.5 and 17.5 ) Mean Platelet Volume: 9.2 fL -- Normal range between ( 6.7 and 10.6 ) Platelet: 222 x10 RDW: 13.7 % -- Normal range between ( 11.6 and 14.8 ) 08/16/2017 9:15 AM Neutro Auto: 54.5 % -- Normal range between ( 47.2 and 70.8 ) Lymph Auto: 33.9 % -- Normal range between ( 27.2 and 40.8 ) [place] Auto: 9.3 % -- Normal range between ( 4.7 and 13.9 ) Eos Auto: 2.0 % -- Normal range between ( 0.0 and 6.1 ) Basophil Auto: 0.3 % -- Normal range between ( 0.0 and 1.2 ) Baso Absolute: 0.0 x10 Lymph Absolute: 2.6 x10 [place] Absolute: 0.7 x10 Neutro Absolute: 4.2 x10 Eos Absolute: 0.2 x10 Chemistry 08/17/2017 5:03 AM Creatinine Lvl: 0.91 mg/dL -- Normal range between ( 0.61 and 1.24 ) BUN: 15 mg/dL -- Normal range between ( 8 and 26 ) Glucose Lvl: 97 mg/dL -- Normal range between ( 74 and 118 ) Potassium Lvl: 4.7 mmol/L -- Normal range between ( 3.4 and 4.8 ) AST: 19 IU/L -- Normal range between ( 15 and 41 ) ALT: 13 IU/L -- Normal range between ( 17 and 63 ) Sodium Lvl: 138 mmol/L -- Normal range between ( 133 and 142 ) Calcium Lvl: 8.6 mg/dL -- Normal range between ( 8.5 and 10.3 ) Phosphorus: 3.6 mg/dL -- Normal range between ( 2.5 and 4.6 ) Albumin Lvl: 3.6 g/dL -- Normal range between ( 3.2 and 4.9 ) Total Protein: 6.3 g/dL -- Normal range between ( 6.5 and 8.1 ) Magnesium Lvl: 2.0 mg/dL -- Normal range between ( 1.7 and 2.4 ) Bili Total: 0.7 mg/dL -- Normal range between ( 0.3 and 1.2 ) Alk Phos: 90 IU/L -- Normal range between ( 32 and 91 ) Chloride: 110 mmol/L -- Normal range between ( 98 and 110 ) CO2: 23 mmol/L -- Normal range between ( 22 and 32 ) Anion Gap: 10 -- Normal range between ( 7 and 17 ) eGFR Non-AA: >60 mL/min/1.73m? eGFR AA: >60 mL/min/1.73m? BUN Crea Ratio: 16.5 -- Normal range between ( 15.0 and 25.0 ) AG Ratio: 1.3 -- Normal range between ( 1.1 and 2.2 ) 08/16/2017 9:17 PM 12 Hour CPK: 110 ng/mL -- Normal range between ( 49 and 397 ) 12 Hour Troponin: <0.03 ng/mL -- Normal range between ( 0.00 and 0.03 ) 08/16/2017 4:50 PM 6 Hour Troponin: <0.03 ng/mL -- Normal range between ( 0.00 and 0.03 ) 6 Hour Myoglobin: 18.0 ng/mL -- Normal range between ( 17.4 and 105.7 ) 08/16/2017 11:08 AM 2 Hour Troponin: <0.03 ng/mL -- Normal range between ( 0.00 and 0.03 ) 2 Hour Myoglobin: 19.0 ng/mL -- Normal range between ( 17.4 and 105.7 ) 08/16/2017 9:15 AM Creatine Phosphokinase: 142 IU/L -- Normal range between ( 49 and 397 ) Initial Troponin: <0.03 ng/mL -- Normal range between ( 0.00 and 0.03 ) Initial Myoglobin: 15.0 ng/mL -- Normal range between ( 17.4 and 105.7 ) Diagnostic Radiology 08/16/2017 9:18 AM XR Chest 1 View: XR Chest 1 View Echocardiography 08/16/2017 1:10 PM EC Cardiac Echo Transthoracic (TTE): EC Cardiac Echo Transthoracic (TTE)Measurements:Height:W eight:Blood Pressure: 145 mmHg /BMI:Respiratory:Respirati ons: UnlaboredRespiratory Symptoms: NoneCardiovascular:Heart Sounds:Heart Rhythm: RegularGastrointestinal:GI Symptoms:Bowel Sounds: PresentVital Signs:Temp Axillary:Temp Temporal Artery:Temp Oral: 36.6 degCTemp Rectal:Apical Heart Rate:Peripheral Pulse Rate: 81 bpmHeart Rate:Respiratory Rate: 16 br/minDietDiet:Feeding Tolerance:Appetite: GoodBraden Assessment: 21Procedures No Procedures DocumentedImmunizations No Immunizations Documented This VisitCare Team Members:Attending Physician: Sherman CARR, MauricioepConsulting Physician:Referring Physician:Follow up:With: Address: When:Nickolas Lim [address] [place] [address] [phone] Business (1) Within 1 weekComments:Call for followup appointment Normal [facility] Magnesiumon 08-17-2017 Magnesium 2.0 mg/dL Normal 1.7-2.4 [facility] Comment on above: Performed By: #### C BC ####[address] [address] Phosphoruson 08-17-2017 Phosphate 3.6 mg/dL Normal 2.5-4.6 [facility] Comment on above: Performed By: #### C BC ####[address] [address] .eGFRon 08-16-2017 eGFR (non-black) mL/min/{1.73_m2} Normal >=60 [facility] Comment on above: Result Comment: Resu lt = 0-14.9 mL/min/1.73 m2 Kidney failure or DialysisResult = 15-29 mL/min/1.73 m2 Severe decrease in GFRResult = 30-59 mL/min/1.73 m2 Moderate decrease in GFRResult >= 60 mL/min/1.73 m2 Normal or increased GFRChronic kidney disease is defined as either kidney damage or GFR < 60 mL/min/1.73 m2 for >= 3 months. Kidney damage is defined as pathologic abnormalities or markers of damage including abnormalities in blood or urine tests or imaging studies. This GFR is NOT used for medication dosing. Performed By: #### E GFR ####[place] [id number] Result Comment: Resu lt = 0-14.9 mL/min/1.73 m2 Kidney failure or DialysisResult = 15-29 mL/min/1.73 m2 Severe decrease in GFRResult = 30-59 mL/min/1.73 m2 Moderate decrease in GFRResult >= 60 mL/min/1.73 m2 Normal or increased GFR AMI Initon 08-16-2017 Initial Myoglobin 15.0 ng/mL Low 17.4-105.7 [facility] Comment on above: Performed By: #### A MI1 ####[place] [id number] Troponin I.cardiac mass conc ng/mL Normal 0.00-0.03 [facility] Comment on above: Result Comment: An i ncreased Troponin-I value, in the absence of myocardial ischemia, may indicate other etiologies of cardiac damage. Performed By: #### A MI1 ####[address] [address] [id number] 08-16-2017 12 Hour CPK 110 ng/mL Normal 49-397 [facility] Comment on above: Performed By: #### . Automated Diff ####[place] [id number] Troponin I.cardiac mass conc ng/mL Normal 0.00-0.03 [facility] Comment on above: Result Comment: An i ncreased Troponin-I value, in the absence of myocardial ischemia, may indicate other etiologies of cardiac damage. Performed By: #### . Automated Diff ####[place] [id number] 08-16-2017 2 Hour Myoglobin 19.0 ng/mL Normal 17.4-105.7 [facility] Comment on above: Performed By: #### . Automated Diff ####[place] [id number] Troponin I.cardiac mass conc ng/mL Normal 0.00-0.03 [facility] Comment on above: Result Comment: An i ncreased Troponin-I value, in the absence of myocardial ischemia, may indicate other etiologies of cardiac damage. Performed By: #### . Automated Diff ####[place] [id number] 08-16-2017 6 Hour Myoglobin 18.0 ng/mL Normal 17.4-105.7 [facility] Comment on above: Performed By: #### . Automated Diff ####[place] [id number] Troponin I.cardiac mass conc ng/mL Normal 0.00-0.03 [facility] Comment on above: Result Comment: An i ncreased Troponin-I value, in the absence of myocardial ischemia, may indicate other etiologies of cardiac damage. Performed By: #### . Automated Diff ####[place] [address] CBC w/ Diffon 08-16-2017 Erythrocyte distribution width Auto Ratio (RBC) 13.3 % Normal 11.6-14.8 [facility] Comment on above: Performed By: #### C BC ####[place] [id number] Erythrocytes (RBC) 4.92 x10*6/mcL Normal 4.30-5.80 [facility] Comment on above: Performed By: #### C BC ####[place] [address] Hematocrit (HCT) 44.1 % Normal 41.0-53.0 [facility] Comment on above: Performed By: #### C BC ####[place] [id number] Hemoglobin mass conc (Bld) 15.1 g/dL Normal 13.5-17.5 [facility] Comment on above: Performed By: #### C BC ####[place] [address] MCH 30.6 pg Normal 27.0-35.0 [facility] Comment on above: Performed By: #### C BC ####[place] [id number] MCHC mass conc (RBC) 34.2 % Normal 31.0-37.0 [facility] Comment on above: Performed By: #### C BC ####[place] [id number] MCV 89.7 fL Normal 80.0-100.0 [facility] Comment on above: Performed By: #### C BC ####[place] [address] Platelet mean volume (PMV) 9.1 fL Normal 6.7-10.6 [facility] Comment on above: Performed By: #### C BC ####[place] [id number] Platelets 232 x10*3/mcL Normal 150-350 [facility] Comment on above: Performed By: #### C BC ####[place] [id number] WBC (Leukocytes) 7.7 x10*3/mcL Normal 4.5-11.[address] [facility] Comment on above: Performed By: #### C BC ####[place] [address] CMPon 08-16-2017 Alanine aminotransferase (ALT) 16 U/L Low 17-63 [facility] Comment on above: Performed By: #### C OMP ####[address] [address] Albumin 4.0 g/dL Normal 3.2-4.9 [facility] Comment on above: Performed By: #### C OMP ####[address] [address] Albumin/Globulin Ratio 1.3 {ratio} Normal 1.1-2.2 [facility] Comment on above: Performed By: #### C OMP ####[address] [address] Alk Phos 104 IU/L High 32-91 [facility] Comment on above: Performed By: #### C OMP ####[address] [address] Anion gap 10 mmol/L Normal 7-17 [facility] Comment on above: Performed By: #### C OMP ####[address] [address] Aspartate aminotransferase (AST) 22 U/L Normal 15-41 [facility] Comment on above: Performed By: #### C OMP ####[address] [address] Bili Total 0.7 mg/dL Normal 0.3-1.2 [facility] Comment on above: Performed By: #### C OMP ####[address] [address] BUN/Creatinine Ratio 18.0 mg/mg Normal 15.0-25.0 [facility] Comment on above: Performed By: #### C OMP ####[address] [address] Calcium 8.9 mg/dL Normal 8.5-10.3 [facility] Comment on above: Performed By: #### C OMP ####[address] [address] Chloride 110 mmol/L Normal 98-110 [facility] Comment on above: Performed By: #### C OMP ####[address] [address] CO2 22 mmol/L Normal 22-32 [facility] Comment on above: Performed By: #### C OMP ####[address] [address] Creatinine 1.00 mg/dL Normal 0.61-1.24 [facility] Comment on above: Performed By: #### C OMP ####[address] [address] Glucose mass conc 96 mg/dL Normal 74-118 [facility] Comment on above: Performed By: #### C OMP ####[place] [id number] Potassium molar conc 4.5 mmol/L Normal 3.4-4.8 [facility] Comment on above: Performed By: #### C OMP ####[address] [address] Protein 7.1 g/dL Normal 6.5-8.1 [facility] Comment on above: Performed By: #### C OMP ####[address] [address] Sodium 138 mmol/L Normal 133-142 [facility] Comment on above: Performed By: #### C OMP ####[address] [address] Urea nitrogen 18 mg/dL Normal 8-26 [facility] Comment on above: Performed By: #### C OMP ####[address] [address] CPKon 08-16-2017 Creatine Phosphokinase 142 IU/L Normal 49-397 [facility] Comment on above: Performed By: #### C P ####[address] [address] Cardiac Echocardiogram Trans thoracicon 08-16-2017 Cardiac Echocardiogram Transthoracic TRANSTHORACIC ECHOCARDIOGRAMStudy Date/Time: Aug 16 2017 12:35PMBP: 134 / 82HR: 65 bpmHT/WT: 188 cm (74 in) / 95.3 kg (209.6 lb)BSA/BMI: 2.24 m2 / 27 kg/v1AOIADCGV PROVIDER: Татьяна Larry PHYSICIAN: Nay Glaser MDCARDIAC PEDIATRIC NURSE PRACTITIONER: eNly Hector ----INDICATIONS: >1000 volts electrical shock. --------CONCLUSIONSSUMMARY :1. Left ventricle: Systolic function is normal. The estimated ejection fraction is 55-60%.2. Normal left ventricular function.3. Normal right ventricular function.4. Normal chamber dimensions.5. Normal valve structure with no significant stenosis or regurgitation. STUDY DATA: M-mode, complete 2D, complete spectral Doppler, and color Doppler. Study status: Routine. Patient status: Inpatient. [facility] Procedure: Transthoracic echocardiography was performed. Imagequality was adequate. FINDINGSLEFT VENTRICLE: The cavity size is normal. Wall thickness is normal. Systolicfunction is normal. The estimated ejection fraction is 55-60%. Wall motion isnormal; there are no regional wall motion abnormalities. Left ventriculardiastolic function parameters are normal.LEFT ATRIUM: The atrium is normal in size.RIGHT VENTRICLE: The cavity size is normal. Systolic function is normal.Systolic pressure is within the normal range.RIGHT ATRIUM: The atrium is normal in size.MITRAL VALVE: Structurally normal valve. Leaflet motion is normal. Doppler: Transvalvular velocity is within the normal range. There is no evidence forstenosis. There is no significant regurgitation. Valve area by pressurehalf-time: 3.74 cm2 . Indexed valve area by pressure half-time: 1.67 cm2 /m2 . Peak gradient (D): 3 mm Hg.AORTIC VALVE: Structurally normal valve. Trileaflet. Cusp separation isnormal. Doppler: Transvalvular velocity is within the normal range. There isno stenosis. There is no regurgitation. VTI ratio of LVOT to aortic valve:0.91. Valve area (VTI): 2.84 cm2 . Indexed valve area (VTI): 1.27 cm2 /m2 . Peakvelocity ratio of LVOT to aortic valve: 0.89. Valve area (Vmax): 2.76 cm2 .Indexed valve area (Vmax): 1.23 cm2 /m2 . Mean gradient (S): 3.0 mm Hg. Peakgradient (S): 6.2 mm Hg.TRICUSPID VALVE: Structurally normal valve. Leaflet motion is normal.Doppler: Transvalvular velocity is within the normal range. There is noevidence for stenosis. There is no significant regurgitation.PULMONIC VALVE: Structurally normal valve. Cusp motion is normal. Doppler: Transvalvular velocity is within the normal range. There is no regurgitation.AORTA: Aortic root: The aortic root is not dilated.PERICARDIUM: There is no pericardial effusion.SYSTEMIC VEINS:Inferior vena cava: The vessel is normal in size. The respirophasic diameterchanges are in the normal range (greater than or equal to 50%). -------Measurements Left ventricle Value Reference LV ID, ED, PLAX chordal 5.36 cm LV fx shortening, PLAX chordal 29.67 % 25 - 43 LV ID, ES, PLAX maximal 3.77 cm LV PW thickness, ED, PLAX 0.84 cm 0.60 - 1.00 LV PW thickness, ES, PLAX 1.20 cm LV E/e', medial 6.76 Ventricular septum Value Reference IVS thickness, ED, PLAX 0.71 cm 0.60 - 1.00 IVS thickness, ES, PLAX 1.11 cm LVOT Value Reference LVOT ID, A-P 1.99 cm LVOT peak velocity, S 1.1 m/sec LVOT VTI, S 21.4 cm LVOT peak gradient, S 4.9 mm Hg Aortic valve Value Reference Aortic valve peak velocity, S 1.25 m/sec Aortic valve mean velocity, S 0.82 m/sec Aortic mean gradient, S 3.0 mm Hg Aortic peak gradient, S 6.2 mm Hg Aortic valve area, peak velocity 2.76 cm2 Aorta Value Reference Aortic root ID, STJ, ED 2.26 cm Aortic root ID, ED, MM 2.96 cm Left atrium Value Reference LA volume/bsa, ES, 2-p 19.00 ml/m2 LA ID, A-P, ES, MM 3.70 cm 3.00 - 4.00 LA/aortic root ratio, MM 1.25 Mitral valve Value Reference Mitral E-wave peak velocity 0.87 m/sec Mitral A-wave peak velocity 0.5 m/sec Mitral deceleration time 203 ms Mitral pressure half-time 59 ms Mitral E/A ratio, peak 1.73 Mitral valve area, PHT, DP 3.74 cm2 Right ventricle Value Reference RV ID, ED, PLAX 2.76 cm Pulmonic valve Value Reference Pulmonic valve peak velocity, S 0.92 m/sec Pulmonic peak gradient, S 3.4 mm Hg Legend:(L) and (H) ivett values outside specified reference range.Electronically signed byNay Glaser MD08/16/2017 16:04 Final Dictated by: Nay Glaser MDeDictaporsche DT/TM: 08/16/2017 4:04 pmSigned by: Nay Glaser MDed (Electronic Signature): 08/16/2017 4:04 pm(If Report Is Signed, Electronically Signed in Other Vendor System) Normal [facility] Diff Autoon 08-16-2017 Baso Absolute 0.0 x10*3/mcL Normal 0.0-0.2 [facility] Comment on above: Performed By: #### . Automated Diff ####[address] [address] Basophils/100 WBC Auto (Bld) 0.3 % Normal 0.0-1.2 [facility] Comment on above: Performed By: #### . Automated Diff ####[address] [address] Eos Absolute 0.2 x10*3/mcL Normal 0.0-0.4 [facility] Comment on above: Performed By: #### . Automated Diff ####[address] [address] Eosinophils/100 leukocytes 2.0 % Normal 0.0-6.1 [facility] Comment on above: Performed By: #### . Automated Diff ####[address] [address] Lymphocytes 2.6 x10*3/mcL Normal 1.0-4.8 [facility] Comment on above: Performed By: #### . Automated Diff ####[address] [address] Lymphocytes/100 leukocytes 33.9 % Normal 27.2-40.8 [facility] Comment on above: Performed By: #### . Automated Diff ####[address] [address] [place] Absolute 0.7 x10*3/mcL Normal 0.3-1.1 [facility] Comment on above: Performed By: #### . Automated Diff ####[address] [address] Monocytes/100 leukocytes 9.3 % Normal 4.7-13.9 [facility] Comment on above: Performed By: #### . Automated Diff ####[address] [address] Neutro Absolute 4.2 x10*3/mcL Normal 1.8-7.7 [facility] Comment on above: Performed By: #### . Automated Diff ####[address] [address] Neutro Auto 54.5 % Normal 47.2-70.8 [facility] Comment on above: Performed By: #### . Automated Diff ####[address] [address] ED Clinical Summaryon 2017 ED Clinical Summary (Inserted Image. Debo ble to display) [place] [id number] ED Clinical SummaryPerson InformationName: Phoebe, Luly ScottAmerica[facility] Age: 27 Years : 1990Sex: Male PCP: Nickolas Lim DO Status:Single Phone:Race:White Ethnicity:Not or Language:EnglishMRN: [id number] Reason:Tachycardia; Tachycardia Acuity: 2Enc Type: Observation Med Service: Emergency MedicineArrival:08/16/2017 08:47:00 Discharge: LOS: 000 08:36Checkin:08/16/2017 08:47:00 Checkout: 08/16/2017 17:23:44 Dispo Type: Place in ObservationAddress:[address] [place] [address] Provider Notes: History of Present IllnessPatient presents to the ED via private vehicle for the evaluation of chest pain secondary to electrocution. 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 He states that he was holding a wire with both of his hands and that he was then electrocuted across his chest. Patient reports that he has since been experiencing chest pain, palpitations, and confusion. Coworker reports that the voltage was 2400. Patient denies that he lost consciousness during the incident. He also denies experiencing any shortness of breath, abdominal pain, fever, chills, cough, nausea, emesis, weakness, numbness, tingling, or visual changes. He states that he was not wearing protective equipment at the time of?the incident and he denies any known cardiac history.?Patient denies further complaints at initial encounter. Review of SystemsGENERAL: [Negative for weakness, malaise]EYES: [Negative for injury, pain, redness, discharge]ENT: [Negative for injury, pain , sore throat and discharge]NECK: [Negative for injury, pain, swelling, and stiffness]CARDIOVASCULAR: [Positive for chest pain, palpitations]RESPIRATORY: [Negative for shortness of breath, cough, wheezing, and pleuritic chest pain]ABDOMEN/GI: [Negative for pain, nausea, vomiting]BACK: [Negative for injury or bruising]: [Negative for injury, bleeding, discharge, frequency, hematuria, urgency]MUSCULOSKELETAL: [Negative for arthralgias, injury and deformity]SKIN: [Negative for injury, rash, discoloration]NEURO: [Positive for confusion, Negative for focal weakness, numbness, tingling, and seizure]ALLERGY/IMMUNOLOGY : [Negative for hives, rash, and new allergies]ENDOCRINE: [Negative for neck swelling, polydipsia, polyuria, marked weight changes, heat/cold intolerance]HEMATOLOGIC/LY MPHATIC: [Negative for swollen lymph nodes, abnormal bleeding, and unusual bruising]As reviewed in the HPI. All other systems reviewed are negative or normal. Physical ExamCONSTITUTIONAL: [no apparent distress, well appearing]SKIN: [warm, dry, no jaundice, hives or petechiae]EYES: [pupils are equally round, extraocular movements intact without nystagmus, clear conjunctiva, non-icteric sclera]HENT: [normocephalic, atraumatic, moist mucus membranes, oropharynx clear without exudates]NECK: [Nontender and supple with no nuchal rigidity, no lymphadenopathy, full range of motion]PULMONARY: [clear to auscultation without wheezes, rhonchi, or rales, normal excursion, no accessory muscle use and no stridor]CARDIOVASCULAR: [regular rate, rhythm, normal S1 and S2. No appreciated murmurs. Strong radial pulses with intact distal perfusion]GASTROINTESTINAL : [soft, non-tender, non-distended, no palpable masses, no rebound or guarding]GENITOURINARY: [No costovertebral angle tenderness to palpation]LYMPHATICS: [no edema in lower extremities, no lymphadenopathy]MUSCULOSKE LETAL: [Extremities are nontender to palpation and have no gross deformity, no edema, redness, or swelling]NEUROLOGIC: [alert and oriented x 3. Initial speech is somewhat slowed?however appropriate.?GCS 15. Moves all extremities x 4 without motor or sensory deficit]PSYCHIATRIC: [normal mood and affect, thought process is clear and linear]Diagnosis:1:Electri symone injury in adult; 2:PalpitationsProblems Active No Chronic ProblemsSmoking Status: Smoking Status Current some day smokerFunctional Status:Sensory Deficits:History of Falls:Mobility Assistance Prior to Admission:ADLs:Current Level of Assistance for Self-Care/Mobility:Cogniti ve Status:Allergies No Known Medication AllergiesLaboratory or Other Results This Visit (last charted value for your 08/16/2017 visit) Hematology 08/16/2017 9:15 AM WBC: 7.7 x10 RBC: 4.92 x10 Neutro Auto: 54.5 % -- Normal range between ( 47.2 and 70.8 ) Lymph Auto: 33.9 % -- Normal range between ( 27.2 and 40.8 ) [place] Auto: 9.3 % -- Normal range between ( 4.7 and 13.9 ) Eos Auto: 2.0 % -- Normal range between ( 0.0 and 6.1 ) Basophil Auto: 0.3 % -- Normal range between ( 0.0 and 1.2 ) Baso Absolute: 0.0 x10 MCV: 89.7 fL -- Normal range between ( 80.0 and 100.0 ) MCHC: 34.2 % -- Normal range between ( 31.0 and 37.0 ) Lymph Absolute: 2.6 x10 Hct: 44.1 % -- Normal range between ( 41.0 and 53.0 ) [place] Absolute: 0.7 x10 MCH: 30.6 pg -- Normal range between ( 27.0 and 35.0 ) Neutro Absolute: 4.2 x10 Hgb: 15.1 g/dL -- Normal range between ( 13.5 and 17.5 ) Mean Platelet Volume: 9.1 fL -- Normal range between ( 6.7 and 10.6 ) Platelet: 232 x10 Eos Absolute: 0.2 x10 RDW: 13.3 % -- Normal range between ( 11.6 and 14.8 ) Chemistry 08/16/2017 4:50 PM 6 Hour Troponin: <0.03 ng/mL -- Normal range between ( 0.00 and 0.03 ) 6 Hour Myoglobin: 18.0 ng/mL -- Normal range between ( 17.4 and 105.7 ) 08/16/2017 11:08 AM 2 Hour Troponin: <0.03 ng/mL -- Normal range between ( 0.00 and 0.03 ) 2 Hour Myoglobin: 19.0 ng/mL -- Normal range between ( 17.4 and 105.7 ) 08/16/2017 9:15 AM Creatinine Lvl: 1.00 mg/dL -- Normal range between ( 0.61 and 1.24 ) BUN: 18 mg/dL -- Normal range between ( 8 and 26 ) Glucose Lvl: 96 mg/dL -- Normal range between ( 74 and 118 ) Potassium Lvl: 4.5 mmol/L -- Normal range between ( 3.4 and 4.8 ) AST: 22 IU/L -- Normal range between ( 15 and 41 ) ALT: 16 IU/L -- Normal range between ( 17 and 63 ) Sodium Lvl: 138 mmol/L -- Normal range between ( 133 and 142 ) Calcium Lvl: 8.9 mg/dL -- Normal range between ( 8.5 and 10.3 ) Albumin Lvl: 4.0 g/dL -- Normal range between ( 3.2 and 4.9 ) Total Protein: 7.1 g/dL -- Normal range between ( 6.5 and 8.1 ) Magnesium Lvl: 2.0 mg/dL -- Normal range between ( 1.7 and 2.4 ) Bili Total: 0.7 mg/dL -- Normal range between ( 0.3 and 1.2 ) Alk Phos: 104 IU/L -- Normal range between ( 32 and 91 ) Chloride: 110 mmol/L -- Normal range between ( 98 and 110 ) CO2: 22 mmol/L -- Normal range between ( 22 and 32 ) Anion Gap: 10 -- Normal range between ( 7 and 17 ) eGFR Non-AA: >60 mL/min/1.73m? eGFR AA: >60 mL/min/1.73m? BUN Crea Ratio: 18.0 -- Normal range between ( 15.0 and 25.0 ) AG Ratio: 1.3 -- Normal range between ( 1.1 and 2.2 ) Creatine Phosphokinase: 142 IU/L -- Normal range between ( 49 and 397 ) Initial Troponin: <0.03 ng/mL -- Normal range between ( 0.00 and 0.03 ) Initial Myoglobin: 15.0 ng/mL -- Normal range between ( 17.4 and 105.7 ) Diagnostic Radiology 08/16/2017 9:18 AM XR Chest 1 View: XR Chest 1 View Echocardiography 08/16/2017 1:10 PM EC Cardiac Echo Transthoracic (TTE): EC Cardiac Echo Transthoracic (TTE)Measurements:Height:W eight: 30.3 kgBlood Pressure: /80 mmHgBMI:Procedures No Procedures DocumentedImmunizations No Immunizations Documented This VisitFinal Med List:No Known Home MedicationsCare Team Members:Attending Physician: Sherman CARR, MarinaConsulting Physician:Referring Physician:Provider Role Assigned UnassLiz CARR, Luis Palma ED Provider 08/16/2017 08:59:20Cindy Graham ED Nurse 08/16/2017 09:58:10Follow up:Discharge Orders:Place in Observation 08/16/17 10:02:00 EDT, Coronary Care Unit, 08/16/17 10:02:00 EDT, Sherman CARR, Sherman Rea MD, MarinaRequest for Admit 08/16/17 10:03:00 EDT, 08/16/17 10:02:00 EDT, Coronary Care UnitPatient Education Information:[facility] Poison Help line: .[facility] Hotline: [place] Tobacco Quit Line: [place], [place]) [address]: [phone] [address]: [phone] [place] [address] [address] [place], [place]: [phone] [facility] ED Note-Nursingon 08-16-2017 ED Note-Nursing Pt updated about neo t time for CCU room assignment. Pt denies needs at this time. Electronically signed by Cindy rGaham 08/16/17 15:49 EDT [facility] ED Note-Nursing Patient's cardiac rh ythm on quality assurance monitor body shows NSR. HR 75. Electronically signed by Cindy Graham 08/16/17 15:49 EDT Normal [facility] ED Note-Nursing Lunch meal tara alvarez. Pt denies symptoms or concerns at this time. Electronically signed by Cindy Graham 08/16/17 13:02 EDT Normal [facility] ED Note-Nursing Pt in Echocardiogram . 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 Pt will be boarding in the ED while waiting for room availability per supervisor tellers. Pt updated. Pt denies needs at this time. Pt states chest pain/tightness starting to resolved. No significant change in Pt's condition noted.Electronically signed by Stephen corley Cindy 08/16/17 10:07 EDT [facility] ED Note-Physicianon 08-17-19 ED Note-Physician Chief Complaint electrocuted---feels heart ( [facility])History of Present Illness Patient presents to the ED via private vehicle for the evaluation of chest pain secondary to electrocution. 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 He states that he was holding a wire with both of his hands and that he was then electrocuted across his chest. Patient reports that he has since been experiencing chest pain, palpitations, and confusion. Coworker reports that the voltage was 2400. Patient denies that he lost consciousness during the incident. He also denies experiencing any shortness of breath, abdominal pain, fever, chills, cough, nausea, emesis, weakness, numbness, tingling, or visual changes. He states that he was not wearing protective equipment at the time of the incident and he denies any known cardiac history. Patient denies further complaints at initial encounter.Review of Systems GENERAL: [Negative for weakness, malaise] EYES: [Negative for injury, pain, redness, discharge] ENT: [Negative for injury, pain , sore throat and discharge] NECK: [Negative for injury, pain, swelling, and stiffness] CARDIOVASCULAR: [Positive for chest pain, palpitations] RESPIRATORY: [Negative for shortness of breath, cough, wheezing, and pleuritic chest pain] ABDOMEN/GI: [Negative for pain, nausea, vomiting] BACK: [Negative for injury or bruising] : [Negative for injury, bleeding, discharge, frequency, hematuria, urgency] MUSCULOSKELETAL: [Negative for arthralgias, injury and deformity] SKIN: [Negative for injury, rash, discoloration] NEURO: [Positive for confusion, Negative for focal weakness, numbness, tingling, and seizure] ALLERGY/IMMUNOLOGY: [Negative for hives, rash, and new allergies] ENDOCRINE: [Negative for neck swelling, polydipsia, polyuria, marked weight changes, heat/cold intolerance] HEMATOLOGIC/LYMPHATIC: [Negative for swollen lymph nodes, abnormal bleeding, and unusual bruising] As reviewed in the HPI. All other systems reviewed are negative or normal.Physical Exam CONSTITUTIONAL: [no apparent distress, well appearing] SKIN: [warm, dry, no jaundice, hives or petechiae] EYES: [pupils are equally round, extraocular movements intact without nystagmus, clear conjunctiva, non-icteric sclera] HENT: [normocephalic, atraumatic, moist mucus membranes, oropharynx clear without exudates] NECK: [Nontender and supple with no nuchal rigidity, no lymphadenopathy, full range of motion] PULMONARY: [clear to auscultation without wheezes, rhonchi, or rales, normal excursion, no accessory muscle use and no stridor] CARDIOVASCULAR: [regular rate, rhythm, normal S1 and S2. No appreciated murmurs. Strong radial pulses with intact distal perfusion] GASTROINTESTINAL: [soft, non-tender, non-distended, no palpable masses, no rebound or guarding] GENITOURINARY: [No costovertebral angle tenderness to palpation] LYMPHATICS: [no edema in lower extremities, no lymphadenopathy] MUSCULOSKELETAL: [Extremities are nontender to palpation and have no gross deformity, no edema, redness, or swelling] NEUROLOGIC: [alert and oriented x 3. Initial speech is somewhat slowed however appropriate. GCS 15. Moves all extremities x 4 without motor or sensory deficit] PSYCHIATRIC: [normal mood and affect, thought process is clear and linear]Vitals & Measurements T: 36.8 ?C (Oral) RR: 16 BP: 136/82 SpO2: 97% DOSE WT: 30.3 kg Additional Vitals Peripheral Pulse Rate: 72 bpmProcedure No qualifying data available. ASA DocumentationMedical Decision Making Carmen Parham scribing for and in the presence of Dr. Alvarado Scribe Attestation: The information in this document, created by the biomedical technician for me, accurately reflects the services I personally performed and the decisions made by me. This report has been created using voice recognition software. It may contain minor errors which are inherent in voice recognition technology. EKG: Sinus rhythm. Ventricular rate 99 bpm. When necessary for 121 ms, QRS 84 ms, QTc [address] segment changes. EKG interpreted by me. Patient presents for evaluation of alleged injury. 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 His friend is with him and states the box that they were working on at the time is high voltage, greater than 1000 V. Are not sure where the injury occurred as this. Power was off to the box at the time. Patient was initially borderline tachycardic but does not have any significant dysrhythmias. Patient was placed on a site monitor in. Additionally, there are no signs of ordonez across the hands, chest and he has no pain to any other area. Patient was initially somewhat confused throughout his stay, mental status has improved and is now normal. Labs are obtained. CPK, initial troponin are within normal limits. Given that there is a questionable loss of consciousness as well as a high voltage injury, literature recommends observation including for asymptomatic patients. Options were discussed with the patient and he is agreeable to current plan.Assessment/Plan 1. Electrical injury in adult 2. Palpitations Orders: sodium chloride, 10 mL, IV Push, Injection, As Indicated, PRN flush, First Dose: 08/16/17 9:06:00 EDT, Dispense From Location: [facility] AMI 2 Hour Cardiac Monitoring ED EKG Request for Admit Vital Signs XR Chest 1 ViewProblem List/Past Medical History Ongoing No chronic problems Historical No qualifying dataMedications Home No active home medications Inpatient Normal Saline Flush 0.9% injectable solution, 10 mL, IV Push, As Indicated, PRN Prescriptions No active PrescriptionsAllergies No Known Medication AllergiesSocial History Alcohol Current, 1-2 times per week Home/Environment Lives with Father. Substance Abuse Denies All Tobacco Current some day smoker, CigarettesLab Results Automated Hematology LATEST RESULTS WBC 08/16/17 09:15 7.7 RBC 08/16/17 09:15 4.92 Hgb 08/16/17 09:15 15.1 Hct 08/16/17 09:15 44.1 MCV 08/16/17 09:15 89.7 MCH 08/16/17 09:15 30.6 MCHC 08/16/17 09:15 34.2 RDW 08/16/17 09:15 13.3 Platelet 08/16/17 09:15 232 Mean Platelet Volume 08/16/17 09:15 9.1 Neutro Auto 08/16/17 09:15 54.5 Lymph Auto 08/16/17 09:15 33.9 [place] Auto 08/16/17 09:15 9.3 Eos Auto 08/16/17 09:15 2.0 Basophil Auto 08/16/17 09:15 0.3 Neutro Absolute 08/16/17 09:15 4.2 Lymph Absolute 08/16/17 09:15 2.6 [place] Absolute 08/16/17 09:15 0.7 Eos Absolute 08/16/17 09:15 0.2 Baso Absolute 08/16/17 09:15 0.0 Routine Chemistry LATEST RESULTS Sodium Lvl 08/16/17 09:15 138 Potassium Lvl 08/16/17 09:15 4.5 Chloride 08/16/17 09:15 110 CO2 08/16/17 09:15 22 Anion Gap 08/16/17 09:15 10 Glucose Lvl 08/16/17 09:15 96 BUN 08/16/17 09:15 18 Creatinine Lvl 08/16/17 09:15 1.00 eGFR AA 08/16/17 09:15 >60 eGFR Non-AA 08/16/17 09:15 >60 BUN Crea Ratio 08/16/17 09:15 18.0 Bili Total 08/16/17 09:15 0.7 Alk Phos 08/16/17 09:15 104 High AST 08/16/17 09:15 22 ALT 08/16/17 09:15 16 Low Total Protein 08/16/17 09:15 7.1 Albumin Lvl 08/16/17 09:15 4.0 AG Ratio 08/16/17 09:15 1.3 Calcium Lvl 08/16/17 09:15 8.9 Magnesium Lvl 08/16/17 09:15 2.0 Creatine Phosphokinase 08/16/17 09:15 142 Cardiac Isoenzymes LATEST RESULTS Initial Myoglobin 08/16/17 09:15 15.0 Low Initial Troponin 08/16/17 09:15 <0.03Diagnostic Results XRay No qualifying data available. Computerized Tomagraphy No qualifying data available. Ultrasound No qualifying data available. Magnetic Resonance Imaging No qualifying data available. Carmen Parham JElectronically signed by Luis Hamm MD 08/16/2017 10:07 EDT Normal [facility] History and Physicalon 08-16 History and Physical Chief Complaint electrocuted---feels heart ( [facility])History of Present Illness This is a 27-year-old male patient who was at work at [employer] and took a shock from 1000 V of electricity. He states he did not lose consciousness but immediately after the shock he was confused he states he still feels cloudy and very dizzy if he does too much activity. His chest feels tight but otherwise no pain no trouble breathing. He was given a liter of normal saline in the emergency department. His blood pressure is mildly elevated at 153/74 at the time of my evaluation heart rate is in the 70s. Skin was unremarkable is no evidence of wounds secondary to electrical current injury. He does have tattoos otherwise no abnormalities. He currently lives about an hour from this facility and normally follows with Dr. Lim. He drinks alcohol on occasion but not daily and only smokes cigarettes when drinking alcohol. No significant family history other than heart attacks of father and grandfather. Primary Care Provider: Nickolas Lim DOview of Systems Constitutional: No fevers, chills, sweats Respiratory: No shortness of breath, cough Cardiovascular: No Chest pain, palpitations, syncope Gastrointestinal: No nausea, vomiting, diarrhea Genitourinary: No hematuria Peripheral: no calf tendernesss numbness or tinglingPhysical Exam Vitals & Measurements T: 36.8 ?C (Oral) RR: 16 BP: 135/83 SpO2: 98% DOSE WT: 30.3 kg Lungs: Clear to auscultation, non-labored respiration Heart: Normal rate, regular rhythm, no murmur, gallop or edema. Abdomen: Soft, non-tender, non-distended, normal bowel sounds, no masses. Mental Status: Alert and oriented x3. Skin: pink warm dry and intact Peripheral: 2+ dorsalis pedal pulses and 2+ radial pulses Musculoskeletal: 5/5 strength jude ue and 5/5 dorsi/plantar flexion FROMx4 Additional Vitals Peripheral Pulse Rate: 66 bpmAssessment/Plan 1. Electrical injury in adult monitor telemetry, and cardiac enzymes, recheck labs and echocardiogram, check orthostatic vital signs. 2. Palpitations Recheck ECG in the morning. Patient remained stable overnight was able to tolerate walking in the halls without significant dizziness and no ectopy or abnormal rhythms overnight patient can be discharged home. He will need to follow-up with his primary care provider in the next 1 week. I will continue IV fluids for an additional bag I-125 and hours patient is still very dizzy especially with position changes.Problem List/Past Medical History Ongoing No chronic problems Historical No qualifying dataProcedure/Surgical History No history of surgeryMedications Home No active home medications Inpatient acetaminophen, 650 mg, Oral, q6hr, PRN acetaminophen, 650 mg, Oral, q6hr, PRN enoxaparin, 40 mg, 0.4 mL, Subcutaneous, Daily Normal Saline Flush 0.9% injectable solution, 10 mL, IV Push, As Indicated, PRN ondansetron, 4 mg, 2 mL, IV Push, q4hr, PRN Prescriptions No active PrescriptionsAllergies No Known Medication AllergiesSocial History Alcohol Current, 1-2 times per week Home/Environment Lives with Father. Substance Abuse Denies All Tobacco Current some day smoker, CigarettesFamily History Heart attack: Father and Grandfather (P).Lab Results Labs (Last four charted values) WBC 7.7 (AUG 16) Hgb 15.1 (AUG 16) Hct 44.1 (AUG 16) Plt 232 (AUG 16) Na 138 (AUG 16) K 4.5 (AUG 16) CO2 22 (AUG 16) Cl 110 (AUG 16) Cr 1.00 (AUG 16) BUN 18 (AUG 16) Glucose Random 96 (AUG 16)Diagnostic Results Diagnostic Radiology XR Chest 1 View 08/16/17 10:22:12 IMPRESSION:No acute cardiopulmonary process. Signed By: Francisco Lee MDElectronically signed by W Татьяна Rapp CNP 08/16/17 14:16 EDT Normal [facility] Magnesiumon 08-16-2017 Magnesium 2.0 mg/dL Normal 1.7-2.4 [facility] Comment on above: Performed By: #### M [place] ####[place] [address] XR Chest 1 Viewon 08-16-2017 XR Chest 1 View HISTORY: Patient is a 27-year-old male with tachycardia status post electrocution.TECHNIQUE: 2 views of the chest.COMPARISON: None.FINDINGS: The lungs are without consolidation or effusion. There is no evidence for pneumothorax. The mediastinal structures and cardiac silhouette are unremarkable.Limited views of the upper abdomen are unremarkable. No acute osseous abnormality is identified. The extrathoracic soft tissues are unremarkable.IMPRESSION:No acute cardiopulmonary process. Final Dictated by: Francisco Lee MDDictated DT/TM: 08/16/2017 10:22 amSigned by: Francisco Lee MDigned (Electronic Signature): 08/16/2017 10:22 am(If Report Is Signed, Electronically Signed in Other Vendor System) [facility] Vital Signs Date Time Vital Sign Value Performing Clinician Jason brown 07-16-2022 08:09-0400 Blood Pressure Location Emigdio HORVATH [facility] 07-16-2022 08:09-0400 Diastolic blood pressure 86 mm[Hg] Emigdio HORVATH [facility] 07-16-2022 08:09-0400 Heart rate 79 /min Emigdio HORVATH [facility] 07-16-2022 08:09-0400 Respiratory rate 16 /min Emigdio HORVATH [facility] 07-16-2022 08:09-0400 Systolic blood pressure 130 mm[Hg] Emigdio HORVATH [facility] Encounters Encounter Date Encounter Type Care Provider Facility Start: 06-20-2023 End: 06-20-2023 ambulatory DAVI RODRIGUEZ Not Available Start: 07-16-2022 End: 07-17-2022 ambulatory Emigdio HORVATH Facility:[facility] Start: 07-16-2022 End: 07-16-2022 Patient encounter procedure Emigdio HORVATH [facility] Start: 07-13-2022 ambulatory Emigdio HORVATH Facility :[facility] Start: 07-02-2022 End: 07-03-2022 ambulatory Emigdio HORVATH Facility:[facility]:[id number] Start: 04-12-2022 End: 04-13-2022 ambulatory Emigdio HORVATH Facility:[facility] Start: 04-12-2022 End: 04-12-2022 Patient encounter procedure Emigdio HORVATH [facility] Start: 01-27-2022 End: 01-28-[address] HERNANDEZ ELLIOTT Facility:[facility] Start: 12-09-2021 End: 12-10-[address] DOCTOR FELIX Facility:[facility] Start: 08-16-2017 End: 08-17-2017 Ambulatory MARINA ARIASPAManuel Facility:[facility] Procedures Date Procedure Procedure Detail Performing Clinician Start: 07-16-2022 H/O: vasectomy Emigdio HORVATH Start: 07-02-2022 Vasectomy Emigdio HARKINS None (qualifier value) Sheryl HORVATH Immunizations Immunization Date Immunization Notes [facility]2004 measles, mumps and rubella virus vaccine Emigdio HORVATH [facility] 09-20-1996 DTaP, unspecified formulation Emigdiocourtney HORVATH [facility] 10-09-1993 DTaP, unspecified formulation Emigdiocourtney HORVATH [facility] 10-09-1993 Hib, unspecified formulation Emigdio HORVATH [facility] 10-31-1992 Hib, unspecified formulation Emigdio HORVATH [facility] 10-31-1992 measles, mumps and rubella virus vaccine Emigdio HORVATH [facility] 03-28-1992 Hib, unspecified formulation Emigdio HORVATH [facility] 1991 Hib, unspecified formulation Emigdio HORVATH [facility] Payers Date Payer Category Payer Self-pay 2017 Worker's Compensation 1991 Unknown [id number] 2.16.84 [id number] 1991 Unknown [id number] 2.16.84 [id number] 1991 Unknown [id number] 2.16.8 [id number] 1991 Unknown [id number] 2.16.8 [id number] 1991 Unknown [id number] 2.16.8 [id number] 1991 Unknown [id number] 2.16.84 [id number] 1959 Unknown [id number] Unknown [id number] 2.16.8 [id number] Social History Date Type Detail Facility Start: 04-12-2022 Tobacco smoking status Light t obacco smoker (finding) [facility] Sex Assigned At Male [facility] Functional Status Date Assessment Result Facility 07-16-2022 Functional Status N/A [facility] 04-12-2022 Functional Status N/A [facility] Discharge instructions 07-16-2022 Note Date & Type Note Facility 07-16-2022 Hospital Discharg e instructions Patient Education 07/16/2022 08:07:07 Contraception Choices Contraception Choices Contraception, also called control, refers to methods or devices that prevent . Hormonal methods Contraceptive implant A contraceptive implant is a thin, plastic tube that contains a hormone that prevents . It is different from an intrauterine device (IUD). It is inserted into the upper part of the arm by a health care provider. Implants can be effective for up to 3 years. Progestin-only injections Progestin-only injections are injections of progestin, a synthetic form of the hormone progesterone. They are given every 3 months by a health care provider. control pills control pills are pills that contain hormones that prevent . They must be taken once a day, preferably at the same time each day. A prescription is needed to use this method of contraception. control patch The control patch contains hormones that prevent . It is placed on the skin and must be changed once a week for three weeks and removed on the fourth week. A prescription is needed to use this method of contraception. Vaginal ring A vaginal ring contains hormones that prevent . It is placed in the vagina for three weeks and removed on the fourth week. After that, the process is repeated with a new ring. A prescription is needed to use this method of contraception. Emergency contraceptive Emergency contraceptives prevent after unprotected sex. They come in pill form and can be taken up to 5 days after sex. They work best the sooner they are taken after having sex. Most emergency contraceptives are available without a prescription. This method should not be used as your only form of control. Barrier methods Male condom A male condom is a thin sheath that is worn over the penis during sex. Condoms keep sperm from going inside a woman's body. They can be used with a sperm-killing substance (spermicide) to increase their effectiveness. They should be thrown away after one use. Female condom A female condom is a soft, loose-fitting sheath that is put into the vagina before sex. The condom keeps sperm from going inside a woman's body. They should be thrown away after one use. Diaphragm A diaphragm is a soft, dome-shaped barrier. It is inserted into the vagina before sex, along with a spermicide. The diaphragm blocks sperm from entering the uterus, and the spermicide kills sperm. A diaphragm should be left in the vagina for 6 8 hours after sex and removed within 24 hours. A diaphragm is prescribed and fitted by a health care provider. A diaphragm should be replaced every 1 2 years, after giving , after gaining more than 15 lb (6.8 kg), and after pelvic surgery. Cervical cap A cervical cap is a round, soft latex or plastic cup that fits over the cervix. It is inserted into the vagina before sex, along with spermicide. It blocks sperm from entering the uterus. The cap should be left in place for 6 8 hours after sex and removed within 48 hours. A cervical cap must be prescribed and fitted by a health care provider. It should be replaced every 2 years. Sponge A sponge is a soft, circular piece of polyurethane foam with spermicide in it. The sponge helps block sperm from entering the uterus, and the spermicide kills sperm. To use it, you make it wet and then insert it into the vagina. It should be inserted before sex, left in for at least 6 hours after sex, and removed and thrown away within 30 hours. Spermicides Spermicides are chemicals that kill or block sperm from entering the cervix and uterus. They can come as a cream, jelly, suppository, foam, or tablet. A spermicide should be inserted into the vagina with an applicator at least 10 15 minutes before sex to allow time for it to work. The process must be repeated every time you have sex. Spermicides do not require a prescription. Intrauterine contraception Intrauterine device (IUD) An IUD is a T-shaped device that is put in a woman's uterus. There are two types: Hormone IUD.This type contains progestin, a synthetic form of the hormone progesterone. This type can stay in place for 3 5 years. Copper IUD.This type is wrapped in copper wire. It can stay in place for 10 years. Permanent methods of contraception Female tubal ligation In this method, a woman's fallopian tubes are sealed, tied, or blocked during surgery to prevent eggs from traveling to the uterus. Hysteroscopic sterilization In this method, a small, flexible insert is placed into each fallopian tube. The inserts cause scar tissue to form in the fallopian tubes and block them, so sperm cannot reach an egg. The procedure takes about 3 months to be effective. Another form of control must be used during those 3 months. Male sterilization This is a procedure to tie off the tubes that carry sperm (vasectomy). After the procedure, the man can still ejaculate fluid (semen). Another form of control must be used for 3 months after the procedure. Natural planning methods Natural family planning In this method, a couple does not have sex on days when the woman could become . Calendar method In this method, the woman keeps track of the length of each menstrual cycle, identifies the days when can happen, and does not have sex on those days. Ovulation method In this method, a couple avoids sex during ovulation. Symptothermal method This method involves not having sex during ovulation. The woman typically checks for ovulation by watching changes in her temperature and in the consistency of cervical mucus. Post-ovulation method In this method, a couple waits to have sex until after ovulation. Where to find more information Centers for Disease Control and Prevention: www.cdc.gov Summary Contraception, also called control, refers to methods or devices that prevent . Hormonal methods of contraception include implants, injections, pills, patches, vaginal rings, and emergency contraceptives. Barrier methods of contraception can include male condoms, female condoms, diaphragms, cervical caps, sponges, and spermicides. There are two types of IUDs (intrauterine devices). An IUD can be put in a woman's uterus to prevent for 3 5 years. Permanent sterilization can be done through a procedure for males and females. Natural family planning methods involve nothaving sex on days when the woman could become . This information is not intended to replace advice given to you by your health care provider. Make sure you discuss any questions you have with your health care provider. Document Revised: 07/07/2020 Document Reviewed: 07/07/2020 [employer] Patient Education 2022 [employer]. Follow Up Care 04/12/2022 13:33:46 With:YULIET CARR, Emigdio Edwards, URL Address: [facility] [address] , [place] [address]- When: Unknown [facility] Hospital Discharge instructions 04-12-2022 Note Date & Type Note Facility 04-12-2022 Hospital Discharg e instructions Patient Education 04/12/2022 08:27:48 Vasectomy, Care After Vasectomy, Care After This sheet gives you information about how to care for yourself after your procedure. Your health care provider may also give you more specific instructions. If you have problems or questions, contact your health care provider. What can I expect after the procedure? After your procedure, it is common to have: Mild pain, swelling, redness, or discomfort in your scrotum. Some blood coming from your incisions or puncture sites for one or two days. Blood in your semen. Follow these instructions at home: Medicines Take gdhe-vqg-gakruwt and prescription medicines only as told by your health care provider. Avoid taking NSAIDs such as aspirin and ibuprofen, because these medicines can make bleeding worse. Activity For the first 2 days after surgery, avoid physical activity and exercise that require a lot of energy. Ask your health care provider what activities are safe for you. Do not participate in sports or perform heavy physical labor until your pain has improved, or until your health care provider says it is okay. Do not ejaculate for at least 1 week after the procedure, or as long as directed. You may resume sexual activity 7 10 days after your procedure, or when your health care provider approves. Use a different method of control (contraception) until you have had test results that confirm that there is no sperm in your semen. Scrotal support Use scrotal support, such as a jock strap or underwear with a supportive pouch, as needed for one week after your procedure. If you feel discomfort in your scrotum, you may remove the scrotal support to see if the discomfort is relieved. Sometimes scrotal support can press on the scrotum and cause or worsen discomfort. If your skin gets irritated, you may add some germ-free (sterile), fluffed bandages or a clean washcloth to the scrotal support. General instructions Put ice on the injured area: ?Put ice in a plastic bag. ?Place a towel between your skin and the bag. ?Leave the ice on for 20 minutes, 2 3 times a day. Check your incisions or puncture sites every day for signs of infection. Check for: ?Redness, swelling, or pain. ?Fluid or blood. ?Warmth. ?Pus or a bad smell. Leave stitches (sutures) in place. The sutures will dissolve on their own and do not need to be removed. Keep all follow-up visits as told by your health care provider. This is important because you will need a test to confirm that there is no sperm in your semen. Multiple ejaculations are needed to clear out sperm that were beyond the vasectomy site. You will need one test result showing that there is no sperm in your semen before you can resume unprotected sex. This may take 2 4 months after your procedure. Do not drive for 24 hours if you were given a sedative to help you relax. Contact a health care provider if: You have redness, swelling, or more pain around your incision or puncture site, or in your scrotum area in general. You have bleeding from your incision or puncture site. You have pus or a bad smell coming from your incision or puncture site. You have a fever. Your incision or puncture site opens up. Get help right away if: You develop a rash. You have difficulty breathing. Summary After your procedure it is common to have mild pain, swelling, redness, or discomfort in your scrotum. Avoid physical activity and exercise that requires a lot of energy for the first 2 days after surgery. Put ice on the injured area. Leave the ice on for 20 minutes, 2 3 times a day. Do not drive for 24 hours if you were given a sedative to help you relax. This information is not intended to replace advice given to you by your health care provider. Make sure you discuss any questions you have with your health care provider. Document Released: 08/20/2005 Document Revised: 01/13/2018 Document Reviewed: 04/29/2017 [employer] Patient Education [employer]. Follow Up Care 03/18/2022 15:42:03 With:YULIET CARR, Emigdio Edwards, URL Address: [facility] [address], [place] [address]- When: Unknown [facility] Evaluation + Plan note Note Date & Type Note Facility Evaluation + Plan note Future Appointments Appointment Date:07/16/2022 08:00:00 AM Scheduled Provider:Emigdio HORVATH MD Location:[facility] Appointment Type:URO Office Visit [facility] Hospital course Narrative Note Date & Type Note Facility Hospital course Narrative No data available for this section [facility] Progress note Note Date & Type Note Facility Progress note No data available for this section [facility] Summary Purpose Family History No Family History Records FoundNo Family History Records FoundNo Family History Records FoundNo Family History Records FoundNo Family History Records Found Advance Directives No Advanced Directives Records FoundNo Advanced Directives Records FoundNo Advanced Directives Records FoundNo Advanced Directives Records FoundNo Advanced Directives Records Found Additional Source Comments (unrecognized sect ion and content) No Status Records FoundNo Status Records FoundNo Status Records FoundNo Status Records FoundNo Status Records Found INFORMATION SOURCE (unrecogn ized section and content) DATE CREATED AUTHOR 08/19/2017 [facility] DATE CREATED AUTHOR AUTHOR'S ORGANIZ ATION 02/05/2022 [facility] DATE CREATED AUTHOR AUTHOR'S ORGANIZ ATION 07/25/2022 [facility] DATE CREATED AUTHOR AUTHOR'S ORGANIZ ATION 07/25/2022 [facility] DATE CREATED AUTHOR AUTHOR'S ORGANIZ ATION 06/21/2023 [facility] EPIC Patient Care team informatio n (unrecognized section and content) Personnel Name: DAVI RODRIGUEZ MD Address: Address: [address] [place], [place] [address] Personnel Name: DAVI RODRIGUEZ MD Address: Address: [address] [place] [address] FOR RECORDS PERTAINING TO PATIENTS WHO ARE OR HAVE BEEN ENROLLED IN A CHEMICAL DEPENDENCY/SUBSTANCEABUSE PROGRAM, SOME INFORMATION MAY BE OMITTED. This clinical summary was aggregated from multiple sources. Caution should be exercised in using it in the provision of clinical care. This summary normalizes information from multiple sources, and as a consequence, information in this document may materially change the coding, format and clinical context of patient data. In addition, data may be omitted in some cases. CLINICAL DECISIONS SHOULD BE BASED ON THE PRIMARY CLINICAL RECORDS. [facility] [employer] [facility]. provides no warranty or guarantee of the accuracy or completeness of information in this document.
--- NOTE | 2023-07-21 20:38 | ED_ITS ---
HPI - Abdominal Pain General Chief Complaint: Abdominal Pain Stated Complaint: UPPER ABDOMINAL PAIN Time Seen by Provider: 07/21/23 20:32 Source: patient Mode of arrival: walk-in Limitations: no limitations History of Present Illness HPI narrative: abdominal pain for 2 months. Pain RUQ. Seen by his PCP and ultrasound RUQ ordered but he was unaware of the results. Neg vomiting. also episodes of left sided chest pain . No dyspnea or fever increased pain RUQ today Related Data Home Medications ?Medication ?Instructions ?Recorded ?Confirmed No Known Home Medications 07/21/23 07/21/23 Allergies Allergy/AdvReac Type Severity Reaction Status Date / Time No Known Drug Allergies Allergy Verified 07/21/23 20:34 Review of Systems ROS Status of ROS 10 or more systems reviewed and unremark able except as noted in history and below Exam Constitutional Vital Signs, click to edit/add: Last Vital Signs Temp 98.1 F 07/21/23 20:35 Pulse 69 07/21/23 20:35 Resp 16 07/21/23 20:35 BP 155/89 H 07/21/23 20:35 Pulse Ox 98 07/21/23 20:35 O2 Del Method Room Air 07/21/23 20:35 Common normals: average body habitus, oriented x3, no limitations, healthy appearing, alert and well nourished General appearance: in distress (mild distress) Eye Common normals: EOMs intact bilaterally and conjunctivae normal Chest Common normals: inspection of chest normal and palpation of chest normal Respiratory Common normals: normal respiratory effort, no retractions, no use of accessory muscles and clear to auscultation bilaterally Cardio Common normals: regular rate, regular rhythm, S1 normal heart sound and S2 normal heart sound GI Other: RUQ tenderness Extremity Common normals: normal to inspection and full ROM Neuro Common normals: oriented x3, CN's II-XII intact bilaterally, moves all extremities and no focal motor deficits Psych Appearance: grossly normal Course Vital Signs Vital signs: Vital Signs Temperature 98.1 F 07/21/23 20:35 Pulse Rate 69 07/21/23 20:35 Respiratory Rate 16 07/21/23 20:35 Blood Pressure 155/89 H 07/21/23 20:35 Pulse Oximetry 98 07/21/23 20:35 Oxygen Delivery Method Room Air 07/21/23 20:35 Temperature 98.1 F 07/21/23 20:35 Pulse Rate 69 07/21/23 20:35 Respiratory Rate 16 07/21/23 20:35 Blood Pressure 155/89 H 07/21/23 20:35 Pulse Oximetry 98 07/21/23 20:35 Oxygen Delivery Method Room Air 07/21/23 20:35 MDM - Abdominal Pain MDM Narrative Medical decision making narrative: patient presents complaining right upper quad pain for past couple of months. seen by PCP last week and RUQ US ordered and patient unaware of results. Increased pain with change in position. No associated nausea or fever. exam with abdominal wall tenderness RUQ without guarding. CT with steatosis and indeterminate lesion right hepatic lobe which is very likely not the cause of his pain. US from last week without gallstones and small amount of sludge. Labs unremarkable. Patient informed of the working diagnosis of abdominal wall pain and discharged with norflex and prednisone Lab Data Labs: Lab Results 07/21/23 07/21/23 Range/Units 20:42 20:50 WBC 7.7 (4.0-11.0) 10^3/uL RBC 4.98 (4.70-6.10) 10^6/uL Hgb 14.6 (14.0-18.0) g/dL Hct 43.9 (42.0-54.0) % MCV 88.2 (80.0-94.0) fL MCH 29.3 (25.9-34.0) pg MCHC 33.3 (29.9-35.2) g/dL RDW 12.6 (11.0-15.0) % Plt Count 254 (150-450) 10^3/uL MPV 10.7 (9.5-13.5) fL Neut % (Auto) 53.0 (43.0-75.0) % Lymph % (Auto) 36.1 (20.5-60.0) % [place] % (Auto) 7.7 (1.7-12.0) % Eos % (Auto) 2.1 (0.9-7.0) % Baso % (Auto) 0.4 (0.2-2.0) % Neut # (Auto) 4.1 (1.4-6.5) 10^3/uL Lymph # (Auto) 2.8 (1.2-3.8) 10^3/uL [place] # (Auto) 0.6 (0.3-0.8) 10^3/uL Eos # (Auto) 0.2 (0.0-0.7) 10^3/uL Baso # (Auto) 0.0 (0.0-0.1) 10^3/uL Abs Immat Gran (auto) 0.05 H (0.00-0.03) 10^3/uL Imm/Tot Granulo (auto) 0.7 H (0.0-0.5) % Sodium 140 (136-145) mmol/L Potassium 4.9 (3.5-5.1) mmol/L Chloride 107 (98-107) mmol/L Carbon Dioxide 23.4 (21.0-32.0) mmol/L Anion Gap 14.5 BUN 22.0 H (7.0-18.0) mg/dL Creatinine 1.34 H (0.70-1.30) mg/dL Est GFR ( Amer) >60 (>=60) Est GFR (Non-Af Amer) >60 (>=60) BUN/Creatinine Ratio 16.4 Glucose 102 (74-106) mg/dL Lactate 0.9 (0.4-2.0) mmol/L Calcium 9.0 (8.5-10.1) mg/dL Total Bilirubin 0.3 (0.2-1.0) mg/dL AST 15 (15-37) U/L ALT 32 (16-63) U/L Alkaline Phosphatase 111 (46-116) U/L Troponin I High Sens <4.0 L (4.0-76.1) pg/mL Total Protein 7.3 (6.4-8.2) g/dL Albumin 3.5 (3.4-5.0) g/dL Globulin 3.8 g/dL Albumin/Globulin Ratio 0.9 Lipase 16.0 (16.0-77.0) U/L Urine Color Lt. yellow (YELLOW) Urine Clarity Clear (CLEAR) Urine pH 6.5 (5.0-9.0) Ur Specific [place] 1.020 (1.005-1.025) Urine Protein Negative (NEG/TRACE) mg/dL Urine Glucose (UA) Negative (NEGATIVE) mg/dL Urine Ketones Negative (NEGATIVE) mg/dL Urine Occult Blood Negative (NEGATIVE) Urine Nitrite Negative (NEGATIVE) Urine Bilirubin Negative (NEGATIVE) Urine Urobilinogen 0.2 (0.2-1.0) EU/dL Ur Leukocyte Esterase Negative (NEGATIVE) Imaging Data Abdominal x-ray: Radiologist's impression: ITS Impressions Abdomen/Pelvis CT 07/21/23 20:42 IMPRESSION: No acute intra-abdominal or pelvic abnormality. Hepatic steatosis. Indeterminate hypoattenuating lesion of the right hepatic lobe. Consider further evaluation with MRI. Electronically authenticated by: GIOVANNA NEWELL Date: 07/21/2023 21:52 Chest x-ray: My impression: of: FRANCISCO RODRIGUEZ Procedure: US right upper quadrant EXAM: US right upper quadrant HISTORY: . RUQ ABD PAIN, LUMP R10.11 . COMPARISON: None. TECHNIQUE: Arzola scale and color imaging was performed FINDINGS: The pancreas was obscured due to overlying bowel gas. Scanning of the liver demonstrates mild increased echogenicity of liver consistent with fatty infiltration of liver. The liver is normal in size. Color-flow is noted in the portal and hepatic veins. There is minimal sludge within the gallbladder. No gallstones are noted. No gallbladder wall thickening is noted. Patient had no pain upon scanning over the gallbladder. Common bile duct measures 2 mm. Right kidney measure 11.1 x 5.4 x 5.8 cm. Color-flow is noted. No solid renal cortical masses or hydronephrosis is noted. Scanning of the epigastric region demonstrates no discrete mass solid or cystic within the soft tissues. No fluid is noted in the right upper quadrant. IMPRESSION: 1. Increased echogenicity of liver consistent with fatty infiltration of liver. 2. Small amount of sludge within the gallbladder. No gallstones. No gallbladder wall thickening. 3. The pancreas was obscured due to overlying bowel gas. 4. No discrete mass was noted in the soft tissues of the upper abdomen regional to the patient's area of concern. Radiologist's impression: ITS Impressions Abdomen/Pelvis CT 07/21/23 20:42 IMPRESSION: No acute intra-abdominal or pelvic abnormality. Hepatic steatosis. Indeterminate hypoattenuating lesion of the right hepatic lobe. Consider further evaluation with MRI. Electronically authenticated by: GIOVANNA NEWELL Date: 07/21/2023 21:52 Discharge Plan Discharge Stand Alone Forms: Portal Instructions Chief Complaint: Abdominal Pain Clinical Impression: Abdominal wall pain in right upper quadrant Patient Disposition: Home, Self-Care Prescriptions / Home Meds: No Action No Known Home Medications Print Language: Italian Instructions: Muscle Strain (ED) Additional Instructions: follow up with your doctor for recheck Referrals: Francisco Rodriguez MD [Primary Care Provider] - 1 week
--- NOTE | 2023-07-21 20:41 | ECG_ITS ---
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
--- NOTE | 2023-07-21 20:42 | CT_ITS ---
The [address] [address] Patient Name: LULY SANDHU MRN: [id number] date: 1990 Sex: M Assigned Patient Location: ER Current Patient Location: ER Accession/Order Number: [id number] Exam Date: 07/21/2023 21:01 Report Date: 07/21/2023 21:52 At the request of: MALLORY DUBON Procedure: CT abdomen pelvis w con EXAM: CT abdomen pelvis w con HISTORY: RUQ pain COMPARISON: None. TECHNIQUE: Intravenous contrast-enhanced axial CT of the abdomen and pelvis was performed with coronal and sagittal reformats provided. FINDINGS: Lung bases: Clear. ABDOMEN: Liver: There is a 1.3 cm hypodensity in the right hepatic lobe indeterminate attenuation. Hepatic steatosis. Gallbladder/biliary: Gallbladder is collapsed limiting evaluation. No biliary dilation. Pancreas: Normal. Spleen: Normal. Adrenals: Normal. Kidneys, ureters and urinary bladder: Normal. Pelvis: Normal-sized prostate. Vasculature: Normal caliber of the abdominal aorta. Major venous structures of the abdomen and Hollow viscera/retroperitoneum: Normal appearance of the gastroesophageal junction. Small bowel is normal caliber. Appendix is normal. No focal colonic wall thickening. No mesenteric or pelvic lymphadenopathy. No intra-abdominal free fluid in the air. Musculoskeletal/soft tissues: Soft tissues within normal limits. No acute or aggressive osseous abnormality. CT/CT abdomen pelvis w con IMPRESSION: No acute intra-abdominal or pelvic abnormality. Hepatic steatosis. Indeterminate hypoattenuating lesion of the right hepatic lobe. Consider further evaluation with MRI. Electronically authenticated by: GIOVANNA NEWELL Date: 07/21/2023 21:52
[2023-07-21] MEDS: 0.9 % SODIUM CHLORIDE 1,000 ML 999 ML IV (20:54)
[2023-07-21 20:56] LABS: Basophils Percent Auto 0.4 % (0.2-2.0); Eosinophils Absolute Auto 0.2 10^3/uL (0.0-0.7); Eosinophils Percent Auto 2.1 % (0.9-7.0); Hematocrit 43.9 % (42.0-54.0); Hemoglobin 14.6 g/dL (14.0-18.0); Immature Granulocytes Abs Auto 0.05 10^3/uL (0.00-0.03); Immature Granulocytes Pct Auto 0.7 % (0.0-0.5); Lymphocytes Absolute Auto 2.8 10^3/uL (1.2-3.8); Lymphocytes Percent Auto 36.1 % (20.5-60.0); Mean Corpuscular HGB Conc 33.3 g/dL (29.9-35.2); Mean Corpuscular Hemoglobin 29.3 pg (25.9-34.0); Mean Corpuscular Volume 88.2 fL (80.0-94.0); Mean Platelet Volume 10.7 fL (9.5-13.5); Monocytes Absolute Auto 0.6 10^3/uL (0.3-0.8); Monocytes Percent Auto 7.7 % (1.7-12.0); Neutrophils Absolute Auto 4.1 10^3/uL (1.4-6.5); Platelet Count 254 10^3/uL (150-450); Red Blood Count 4.98 10^6/uL (4.70-6.10); Red Cell Distribution Width 12.6 % (11.0-15.0); White Blood Count 7.7 10^3/uL (4.0-11.0)
[2023-07-21 21:11] LABS: Alanine Aminotransferase 32 U/L (16-63); Albumin Globulin Ratio 0.9; Albumin Level 3.5 g/dL (3.4-5.0); Alkaline Phosphatase 111 U/L (46-116); Anion Gap 14.5; Aspartate Amino Transferase 15 U/L (15-37); BUN Creatinine Ratio 16.4; Bilirubin Total 0.3 mg/dL (0.2-1.0); Carbon Dioxide 23.4 mmol/L (21.0-32.0); Chloride 107 mmol/L (98-107); Estimated GFR (African America >60 (>=60); Estimated GFR (Non-African Ame >60 (>=60); Globulin 3.8 g/dL; Glucose 102 mg/dL (74-106); Potassium 4.9 mmol/L (3.5-5.1); Sodium 140 mmol/L (136-145); Total Protein 7.3 g/dL (6.4-8.2)
[2023-07-21 21:13] LABS: Lactate/Lactic Acid 0.9 mmol/L (0.4-2.0)
[2023-07-21 21:14] LABS: Bilirubin Urine NEGATIVE (NEGATIVE); Blood Urine NEGATIVE (NEGATIVE); Clarity Urine CLEAR (CLEAR); Color Urine LT. YELLOW (YELLOW); Glucose Urine UA NEGATIVE (NEGATIVE); Ketones Urine NEGATIVE (NEGATIVE); Leukocyte Esterase Urine NEGATIVE (NEGATIVE); Nitrite Urine NEGATIVE (NEGATIVE); Protein Urine NEGATIVE (NEG/TRACE); Urobilinogen Urine 0.2 EU/dL (0.2-1.0); pH Urine 6.5 (5.0-9.0)
[2023-07-21 21:15] LABS: Urine Microscopic Indicated NO
[2023-07-21 21:15] LABS: Troponin I High Sensitivity <4.0 pg/mL (4.0-76.1)
[2023-07-21] MEDS: METHYLPREDNISOLONE SOD SUCC PF 125 MG/2 ML VIAL IVP (22:16)
[2023-07-21] MEDS: ORPHENADRINE 60 MG/ 2 ML VIAL IV (22:17)
== END 2023-07-21 22:50 | disposition home or self-care (01) ==
PROVIDERS: Emergency Provider Internal Medicine; PCP Family Medicine
DX: R10.11 Right upper quadrant pain (principal)
CPT/HCPCS: 36415; 74177; 80053; 81003; 83605; 83690; 84484; 85025; 93005; 96374; 96375; 99285; J2919; Q9967

== ENCOUNTER 2023-10-15 08:06 | Outpatient (OUT) | payer OTHER, SELFPAY ==
--- OUTSIDE RECORDS SUMMARY | 2023-10-15 08:09 | XMS_ITS | CCD ---
[facility] Organization [facility] Team Providers Care Benefit Authorizer Name Role Phone KUMARALINGAM, MARINA Unavailable Unavailabl e KUMARALINGAM, MARINA Unavailable Unavailabl Nickolas Sanchez Unavailable Unavailable NICKOLAS LIM Unavailable Unavailable MISC, DR HOU Primary Care Unavailable JAGDISH, MALLORY Attending Unavailable JAGDISH, MALLORY Consulting Unavailable JAGDISH, MALLORY Admitting Unavailable JENIFER BARNARD Consulting Unavailable ABI, DR HERNANDEZ Edwards Consulting Unavailable NADDEMARCO, DR DAVI Mares Attending Unavailable NADDEMARCO, DR DAVI Mares Primary Care Unavailable NADEREJerry, DR DAVI Mares Admitting Unavailable NADEREJerry, DR DAVI Mares Consulting Unavailable NADDEMARCO, DAVI Primary Care Physician [phone] Emigdio HORVATH Attending Unavailable OHRVATH, Emigdio R Attending Unavailable HORVATH, Emigdio R Attending Unavailable Horvath, Emigdio Admitting Unavailable Horvath, Emigdio Attending Unavailable KunsNickolas Primary Care Unavailable NADERER, DAVI Attending Unavailable NADERER, DAVI Attending Unavailable Allergies Allergy Classification Reported Allergen(s) Allergy Type Date of Onset Reaction(s) Facility (2 sources) No Known Medication Allergies; Translations: [No Known Medication Allergies] Propensity to adverse reactions to drug (disorder) [facility] Repository Problems Problem Classification Problem Date Documented [...] Schedule the Following Appointments Follow Up with KILEY CARR, Emigdio Edwards, URL When: Where: [facility] [address] , [place] [address]- Allergies No Known Medication Allergies Problems Ongoing [...] type cont (more content not included)... Normal [facility] Patient Educationon 07-17-19 Patient Education Obstetrics [...] man ca (more content not included)... Normal [facility] Urology Office/Clinic Noteon 07-16-2022 Urology Office/Clinic [...] with plan. Follow-up With When Contact Information Emigdio HORVATH MD, URL [facility] [address] [place] [address]- Additional Instructions: PRN Patient Education Contraception Choices [...] Recorded Hib, unspecified formulation 1990 Recorded Normal [facility] Comment on above: Result Comment: Elec tronically Signed By: Emigdio HORVATH MD\.br\Date and Time Signed: 07/16/22 08:26 EDT\.br\Electronically Co-Signed By: Melissa Beaulieu\.br\Date and Time Co-Signed: 07/16/22 08:10 EDT Pathology Noteon 07-08-2022 Pathology Note [id number]:127 Normal [facility] Operative Reporton 3 Operative Report [id number]:127 Normal [facility] Vahid 07-02-2022 L ------ Specimen: [id number] Received: 07/02/22 Status: DEREK Middleton Num: [id number] Spec Type: Surgical Subm Dr: Emigdio Horvath MD Tissues: A VAS DEFERENS - sterilization (LT VAS DEF) B VAS DEFERENS - sterilization (RT VAS DEF) Procedures: Nelia MARTINEZ/Rohit L2/2 Age/ Patient Sex Location Account Attending Physician Luly Sandhu 32/M ALEXANDRA [id number] Emigdio Horvath MD SPEC NUM: [id number] RECD: 07/02/22 STATUS: DEREK MIDDLETON NUM: [id number] CHING: 07/02/22- SUBM DR: Emigdio Horvath MD ENTERED: 07/02/22 [facility] DR: [facility] SPEC TYPE: Surgical DEPT: S ENTERED BY: [id number] RECV BY: [id number] ORDERED: HE/2, Gross/Micro L2/2 ORDERED: HE/2, Gross/Micro [...] a 0.4 x 0.3 x 0.3 cm jamse mathews tubular tissue. Entirely submitted in one cassette labeled A1. B. Received in formalin labeled with the patient's name, number and right vas deferens segment is a 0.8 x 0.3 x 0.3 cm james mathews tubular tissue with a pinpoint lumen on cut section. Entirely submitted in one cassette labeled B1. Specimen: [id number] Received: 07/02/22 Status: DEREK Renteriaabdelrahman Num: [id number] Spec Type: Surgical Subm Dr: Emigdio Horvath MD Tissues: A VAS DEFERENS - sterilization (LT VAS DEF) B VAS DEFERENS - sterilization (RT VAS DEF) Procedures: HE/2, Gross/Micro L2/2 Patient: Geronimo Sandhuta S [id number] (Continued) Specimen: [id number] Received: 07/02/22 (Continued) Signed (signature on file) Sixto Obregon MD 07/05/22 0940 Specimen: [id number] Received: 07/02/22 Status: DEREK Middleton Num: [id number] Spec Type: Surgical Subm Dr: Emigdio Horvath MD Tissues: A VAS DEFERENS - sterilization (LT VAS DEF) B VAS DEFERENS - sterilization (RT VAS DEF) Procedures: DEVIN/Nelia Panda/Rohit L2/2 Patient: Luly Sandhu S [id number] (Continued) Specimen: [id number] Received: 07/02/22 (Continued) Microscopic Description A. One H E slide reviewed. The microscopic examination confirms the diagnosis. B. One H E slide reviewed. The microscopic examination confirms the diagnosis. CPT Codes 14291?2 Specimen: [id number] Received: 07/02/22 Status: DEREK Middleton Num: [id number] Spec Type: Surgical Subm Dr: Emigdio Horvath MD Tissues: A VAS DEFERENS - sterilization (LT VAS DEF) B VAS DEFERENS - sterilization (RT VAS DEF) Procedures: HE/2, Gross/Micro L2/2 Patient: Luly Sandhu [id number] (Continued) Signed (signature on file) Sixto Obregon MD 07/05/22 0940 [facility] 04-14-2022 Forms [id number]:127 [facility] Consent for Procedure/Surger yon 04-13-2022 Consent for Procedure/Surgery [id number]:127 [facility] Patient Educationon 04-12-19 23 Patient Education Urology Vasectomy, Care After This [...] these instructions at home: Medicines ? Take cxrk-jew-ulemejp and prescription medicines only as told by [...] 08/20/2005 Document Revised: 01/13/2018 Document Reviewed: 04/29/2017 [employer] Patient Education ? 2019 Sah[employer]y. Chencho [facility] Urology Office/Clinic Noteon 04-12-2022 Urology Office/Clinic [...] Local anesthesia. Follow-up With When Contact Information KILEY CARR, Emigdio Edwards, URL [facility] [address], [place] [address]- Additional Instructions: schedule vasectomy Patient Education Vasectomy, [...] Recorded Hib, unspecified formulation 1990 Recorded Normal [facility] Comment on above: Result Comment: Elec tronically Signed By: Emigdio HORVATH MD\.br\Date and Time Signed: 04/12/22 13:28 EST\.br\Electronically Co-Signed By: Melissa Beaulieu\.br\Date and Time Co-Signed: 04/12/22 13:21 EST NM STRESS/REST MULTIon 01-27 NM STRESS/REST MULTI Patient: LULY SANDHU Exam Date: 01/27/2022 : 1990 Gender:M Ordering : DR DAVI RODRIGUEZ . Admission #: [id number] Family : Order #: [id number] CLICK HERE TO VIEW EXAM RADIOLOGY REPORT [...] M.D. on 01/27/2022 at 16:00 Normal [facility] CARDIAC IVETT 3-6on 2 CK [Catalytic activity/Vol] 125 U/L Normal 39-308 [facility] Comment on above: Performed By: #### C MREP #### [facility] [address] [address] [address] Coby Singleton CK.MB [Mass/Vol] 0.61 ng/mL Normal <=3.60 [facility] Comment on above: Performed By: #### C MREP #### [facility] [address] [place] [address] Dr. Coby Singleton HSTROP 4.9 pg/mL Normal 4.0-76.1 [facility] Comment on above: Result Comment: CUT- OFF POINTS HAVE BEEN ESTABLISHED BASED ON THE FOURTH UNIVERSAL DEFINITIONS OF MYOCARDIAL INFARCTION. THE UPPER REFERENCE LIMIT (URL) OF TROPONIN, DEFINED THE 99TH PERCENTILE OF cTnI DISTRIBUTION IN A REFERENCE POPULATION, HAS BEEN CONFIRMED THE DECISION THRESHOLD FOR [place] DIAGNOSIS. Performed By: #### C MREP #### [facility] [address] [address] [address] Coby Singleton CARDIAC IVETT ADMITon 022 CK [Catalytic activity/Vol] 132 U/L Normal 39-308 [facility] Comment on above: Performed By: #### C MELY, BMP #### [facility] [address] [address] [address] Coby Singleton CK.MB [Mass/Vol] 0.76 ng/mL Normal <=3.60 [facility] Comment on above: Performed By: #### C MELY, BMP #### [facility] [address] [place] [address] Dr. Coby Singleton HSTROP 4.8 pg/mL Normal 4.0-76.1 [facility] Comment on above: Result Comment: CUT- OFF POINTS HAVE BEEN ESTABLISHED BASED ON THE FOURTH UNIVERSAL DEFINITIONS OF MYOCARDIAL INFARCTION. THE UPPER REFERENCE LIMIT (URL) OF TROPONIN, DEFINED THE 99TH PERCENTILE OF cTnI DISTRIBUTION IN A REFERENCE POPULATION, HAS BEEN CONFIRMED THE DECISION THRESHOLD FOR [place] DIAGNOSIS. Performed By: #### C MELY, SUZI #### [facility] [address] [place] [address] Dr. Coby Singleton EDILBERTO 50 ng/mL Normal 16-96 [facility] Comment on above: Performed By: #### C MELY, BMP #### [facility] [address] [place] [address] Dr. Coby Singleton CBC AUTO DIFFon 12-09-2021 BASO # 0.0 103/ul Normal 0.0-0.1 [facility] Comment on above: Performed By: #### C BC #### [facility] [address] [place] [address] Dr. Coby Singleton Basophils/100 WBC (Bld) 0.4 % Normal 0.2-2.0 [facility] Comment on above: Performed By: #### C BC #### [facility] [address] [place] [address] Dr. Coby Singleton EO # 0.1 103/ul Normal 0.0-0.7 [facility] Comment on above: Performed By: #### C BC #### [facility] [address] [place] [address] Dr. Coby Singleton Eosinophils/100 WBC (Bld) 1.6 % Normal 0.9-7.0 [facility] Comment on above: Performed By: #### C BC #### [facility] [address] [place] [address] Dr. Coby Singleton Erythrocyte distribution width (RBC) [Ratio] 12.2 % Normal 11.0-15.0 [facility] Comment on above: Performed By: #### C BC #### [facility] [address] [place] [address] Dr. Coby Singleton Hematocrit (Bld) [Volume fraction] 42.8 % Normal 42.0-54.0 [facility] Comment on above: Performed By: #### C BC #### [facility] [address] [place] [address] Dr. Coby Singleton Hemoglobin (Bld) [Mass/Vol] 14.7 g/dL Normal 14.0-18.0 [facility] Comment on above: Performed By: #### C BC #### [facility] [address] [place] [address] Dr. Coby Singleton IG # 0.03 10e3/ul Normal 0.00-0.03 [facility] Comment on above: Performed By: #### C BC #### [facility] [address] [place] [address] Dr. Coby Singleton IG % 0.4 % Normal 0.0-0.5 [facility] Comment on above: Performed By: #### C BC #### [facility] [address] [place] [address] Dr. Coby Singleton LYMPH # 2.4 103/ul Normal 1.2-3.8 [facility] Comment on above: Performed By: #### C BC #### [facility] [address] [place] [address] Dr. Coby Singleton Lymphocytes/100 WBC (Bld) 29.9 % Normal 20.5-60.0 [facility] Comment on above: Performed By: #### C BC #### [facility] [address] [place] [address] Dr. Coby Singleton MANUAL DIFF REQ NO Normal [facility] Comment on above: Performed By: #### C BC #### [facility] [address] [place] [address] Dr. Coby Singleton MCH (RBC) [Entitic mass] 29.5 pg Normal 25.9-34.0 [facility] Comment on above: Performed By: #### C BC #### [facility] [address] [place] [address] Dr. Coby Singleton MCHC (RBC) [Mass/Vol] 34.3 g/dL Normal 29.9-35.2 [facility] Comment on above: Performed By: #### C BC #### [facility] [address] [place] [address] Dr. Coby Singleton MCV (RBC) [Entitic vol] 85.8 fL Normal 80.0-94.0 [facility] Comment on above: Performed By: #### C BC #### [facility] [address] [place] [address] Dr. Coby Singleton MONO # 0.6 103/ul Normal 0.3-0.8 [facility] Comment on above: Performed By: #### C BC #### [facility] [address] [place] [address] Dr. Coby Singleton Monocytes/100 WBC (Bld) 7.6 % Normal 1.7-12.0 [facility] Comment on above: Performed By: #### C BC #### [facility] [address] [place] [address] Dr. Coby Singleton NEUT # 4.7 103/ul Normal 1.4-6.5 [facility] Comment on above: Performed By: #### C BC #### [facility] [address] [place] [address] Dr. Coby Singleton Neutrophils/100 WBC (Bld) 60.1 % Normal 43.0-75.0 [facility] Comment on above: Performed By: #### C BC #### [facility] [address] [place] [address] Dr. Coby Singleton Platelet mean volume (Bld) [Entitic vol] 10.5 fL Normal 9.5-13.5 [facility] Comment on above: Performed By: #### C BC #### [facility] [address] [place] [address] Dr. Coby Singleton PLT 267 103/ul Normal 150-450 [facility] Comment on above: Performed By: #### C BC #### [facility] [address] [place] [address] Dr. Coby Singleton RBC 4.99 106/ul Normal 4.70-6.10 [facility] Comment on above: Performed By: #### C BC #### [facility] [address] [place] [address] Dr. Coby Singleton WBC 7.9 103/ul Normal 4.0-11.0 [facility] Comment on above: Performed By: #### C BC #### [facility] [address] [place] [address] Dr. Coby Singleton D-DIMERon 12-09-2021 D-DIMER 0.19 mg/L FEU Normal <=0.59 [facility] Comment on above: Performed By: #### D DIM #### [facility] [address] [place] [address] Dr. Coby Singleton D-DIMER COMMENTS SEE BELOW Normal [facility] Comment on above: Result Comment: Incr eases [...] hospitalization. Performed By: #### D DIM #### [facility] [address] [place] [address] Dr. Coby Singleton PROF CHEM 8 (BAS METB)on Anion gap [Moles/Vol] 8.5 mmol/L Normal [facility] Comment on above: Performed By: #### C MELY, BMP #### [facility] [address] [place] [address] Dr. Coby Singleton Calcium [Mass/Vol] 8.7 mg/dL Normal 8.5-10.[address] [facility] Comment on above: Performed By: #### C SCOTTYM, BMP #### [facility] [address] [place] [address] Dr. Coby Singleton Chloride [Moles/Vol] 109 mmol/L Critically high 98-107 [facility] Comment on above: Performed By: #### C MELY, BMP #### [facility] [address] [place] [address] Dr. Coby Singleton CO2 [Moles/Vol] 23.4 mmol/L Normal 21.0-32.0 [facility] Comment on above: Performed By: #### C MADM, BMP #### [facility] [address] [address] [address] Coby Singleton Creatinine [Mass/Vol] 1.14 mg/dL Normal 0.70-1.30 [facility] Comment on above: Performed By: #### C MADM, BMP #### [facility] [address] [address] [address] Coby Singleton EGFR-AF MALAYSIAN >60 Normal >=60 [facility] Comment on above: Performed By: #### C SCOTTYM, BMP #### [facility] [address] [address] [address] Coby Singleton EGFR-NON AF MALAYSIAN >60 Normal >=60 [facility] Comment on above: Performed By: #### C SCOTTYM, BMP #### [facility] [address] [address] [address] Coby Singleton Glucose [Mass/Vol] 100 mg/dL Normal 74-[address] [facility] Comment on above: Performed By: #### C MELY, BMP #### [facility] [address] [address] [address] Coby Singleton Potassium [Moles/Vol] 4.9 mmol/L Normal 3.5-5.1 [facility] Comment on above: Performed By: #### C MELY, BMP #### [facility] [address] [address] [address] Coby Singleton Sodium [Moles/Vol] 136 mmol/L Normal 136-145 [facility] Comment on above: Performed By: #### C SCOTTYM, BMP #### [facility] [address] [address] [address] Coby Singleton Urea nitrogen [Mass/Vol] 17.0 mg/dL Normal 7.0-18.0 [facility] Comment on above: Performed By: #### C MELY, BMP #### [facility] [address] [address] [address] Coby Singleton Urea nitrogen/Creatinine [Mass ratio] 14.9 mg/mg Normal [facility] Comment on above: Performed By: #### C MELY, BMP #### [facility] [address] [address] [address] Coby Singleton XR CHEST 2 Von 12-09-2021 XR CHEST 2 V EXAM: XR CHEST 2 V COMPARISON: None available. CLINICAL INDICATION: Chest pain. FINDINGS: The cardiomediastinal silhouette is within normal limits. No focal consolidation. No pleural effusion. No pneumothorax. No evidence of acute osseous abnormality. IMPRESSION: No acute findings. Electronically authenticated by: JENIFER BARNARD Date: 2021-12-09 20:51 Normal [facility] .eGFRon 08-17-2017 eGFR (non-black) mL/min/{1.73_m2} Normal >=60 [facility] Comment on above: Result Comment: Resu lt [...] medication dosing. Performed By: #### C BC ####[address] [address] Result Comment: Resu lt = 0-14.9 mL/min/1.73 m2 Kidney failure or DialysisResult = 15-29 mL/min/1.73 m2 Severe decrease in GFRResult = 30-59 mL/min/1.73 m2 Moderate decrease in GFRResult >= 60 mL/min/1.73 m2 Normal or increased GFR CBCon 08-17-2017 Erythrocyte distribution width Auto Ratio (RBC) 13.7 % Normal 11.6-14.8 [facility] Comment on above: Performed By: #### C BC ####[address] [address] Erythrocytes (RBC) 4.72 x10*6/mcL Normal 4.30-5.80 [facility] Comment on above: Performed By: #### C BC ####[address] [address] Hematocrit (HCT) 42.5 % Normal 41.0-53.0 [facility] Comment on above: Performed By: #### C BC ####[address] [address] Hemoglobin mass conc (Bld) 14.7 g/dL Normal 13.5-17.5 [facility] Comment on above: Performed By: #### C BC ####[address] [address] MCH 31.1 pg Normal 27.0-35.0 [facility] Comment on above: Performed By: #### C BC ####[address] [address] MCHC mass conc (RBC) 34.5 % Normal 31.0-37.0 [facility] Comment on above: Performed By: #### C BC ####[address] [address] MCV 90.0 fL Normal 80.0-100.0 [facility] Comment on above: Performed By: #### C BC ####[address] [address] Platelet mean volume (PMV) 9.2 fL Normal 6.7-10.6 [facility] Comment on above: Performed By: #### C BC ####[address] [address] Platelets 222 x10*3/mcL Normal 150-350 [facility] Comment on above: Performed By: #### C BC ####[address] [address] WBC (Leukocytes) 6.9 x10*3/mcL Normal 4.5-11.0 [facility] Comment on above: Performed By: #### C BC ####[address] [address] CMPon 08-17-2017 Alanine aminotransferase (ALT) 13 U/L Low 17-63 [facility] Comment on above: Performed By: #### C BC ####[address] [address] Albumin 3.6 g/dL Normal 3.2-4.9 [facility] Comment on above: Performed By: #### C BC ####[address] [address] Albumin/Globulin Ratio 1.3 {ratio} Normal 1.1-2.2 [facility] Comment on above: Performed By: #### C BC ####[address] [address] Alk Phos 90 IU/L Normal 32-91 [facility] Comment on above: Performed By: #### C BC ####[address] [address] Anion gap 10 mmol/L Normal 7-17 [facility] Comment on above: Performed By: #### C BC ####[address] [address] Aspartate aminotransferase (AST) 19 U/L Normal 15-41 [facility] Comment on above: Performed By: #### C BC ####[address] [address] Bili Total 0.7 mg/dL Normal 0.3-1.2 [facility] Comment on above: Performed By: #### C BC ####[address] [address] BUN/Creatinine Ratio 16.5 mg/mg Normal 15.0-25.0 [facility] Comment on above: Performed By: #### C BC ####[address] [address] Calcium 8.6 mg/dL Normal 8.5-10.3 [facility] Comment on above: Performed By: #### C BC ####[address] [address] Chloride 110 mmol/L Normal 98-110 [facility] Comment on above: Performed By: #### C BC ####[address] [address] CO2 23 mmol/L Normal 22-32 [facility] Comment on above: Performed By: #### C BC ####[address] [address] Creatinine 0.91 mg/dL Normal 0.61-1.24 [facility] Comment on above: Performed By: #### C BC ####[address] [address] Glucose mass conc 97 mg/dL Normal 74-118 [facility] Comment on above: Performed By: #### C BC ####[address] [address] Potassium molar conc 4.7 mmol/L Normal 3.4-4.8 [facility] Comment on above: Performed By: #### C BC ####[address] [address] Protein 6.3 g/dL Low 6.5-8.1 [facility] Comment on above: Performed By: #### C BC ####[address] [address] Sodium 138 mmol/L Normal 133-142 [facility] Comment on above: Performed By: #### C BC ####[address] [address] Urea nitrogen 15 mg/dL Normal 8-26 [facility] Comment on above: Performed By: #### C BC ####[address] [address] Discharge Summaryon 08-18-19 Discharge Summary Admission Informatio n Date of Arrival: 08/16/2017 Date of Discharge: 08/17/2017 Admitting Dx: Electric injury in an adult, palpitations Discharge Dx: electric injury in an adult, palpitations Consulting Providers: None History of Present Illness This is a 27-year-old male patient who was at work at [employer] and took a shock from [address] [...] Dose: 08/16/17 12:06:00 EDT, Dispense From Location: [facility] acetaminophen, 650 mg, Oral, Tab, q6hr, PRN mild pain [1-3 on pain scale], First Dose: 08/16/17 12:06:00 EDT, Dispense From Location: [facility] enoxaparin, 40 mg, Subcutaneous, Injection, Daily, First Dose: 08/17/17 9:00:00 EDT, Dispense From Location: [facility] ondansetron, 4 mg, IV Push, Injection, q4hr, PRN nausea, First Dose: 08/16/17 12:06:00 EDT, Dispense From Location: [facility] sodium chloride, 10 mL, IV Push, Injection, As Indicated, PRN flush, First Dose: 08/16/17 12:06:00 EDT, Dispense From Location: [facility] Activity Restrictions Alarm Limit Settings AMI 24 [...] 08/16/2017 14:09 EDT[2] XR Chest 1 View; Dari Hale 08/16/2017 09:18 EDTElectronically signed by W Татьяна Rapp CNP 08/17/17 08:48 EDT Normal [facility] Inpatient Clinical Summaryon 08-17-2017 Inpatient Clinical Summary [address] [address]Ogkvdtxk SummaryPerson InformationName: PhoebeLuly Age: 27 Years : 1990Sex: Male PCP: Nickolas Lim DOMarlaila Status:Single Phone: PCP: [phone]:White Ethnicity:Not or Language:EnglishMRN: [id number] Visit Id: Reason:Tachycardia; Tachycardia Speciality: Acuity:Enc Type: Observation Med Service: CardiologyArrival:08/16/2017 08:47:00 Discharge: Dispo Type: Place in ObservationAddress:[address] [place] [address]Utykdyvrk: 1:Electrical injury in adult; 2:PalpitationsDischarged To:Home Treatments:Devices/Equipme [...] range between ( 27.2 and 40.8 ) Major Auto: 9.3 % -- Normal range between ( 4.7 and 13.9 ) Eos Auto: 2.0 % -- Normal range between ( 0.0 and 6.1 ) Basophil Auto: 0.3 % -- Normal range between ( 0.0 and 1.2 ) Baso Absolute: 0.0 x10 Lymph Absolute: 2.6 x10 Major Absolute: 0.7 x10 Neutro Absolute: 4.2 x10 [...] This VisitCare Team Members:Attending Physician: Sherman CARR, PradeepConsulting Physician:Referring Physician:Follow up:With: Address: When:Nickolas Lim [address] [place] [address] [phone] Business (1) Within 1 weekComments:Call for followup appointment Normal [facility] Magnesiumon 08-17-2017 Magnesium 2.0 mg/dL Normal 1.7-2.4 [facility] Comment on above: Performed By: #### C BC ####[address] [address] Phosphoruson 08-17-2017 Phosphate 3.6 mg/dL Normal 2.5-4.6 [facility] Comment on above: Performed By: #### C BC ####[address] [address] .eGFRon 08-16-2017 eGFR (non-black) mL/min/{1.73_m2} Normal >=60 [facility] Comment on above: Result Comment: Resu lt [...] medication dosing. Performed By: #### E GFR ####[place] [id number] Result Comment: Resu lt = 0-14.9 mL/min/1.73 m2 Kidney failure or DialysisResult = 15-29 mL/min/1.73 m2 Severe decrease in GFRResult = 30-59 mL/min/1.73 m2 Moderate decrease in GFRResult >= 60 mL/min/1.73 m2 Normal or increased GFR AMI Initon 08-16-2017 Initial Myoglobin 15.0 ng/mL Low 17.4-105.7 [facility] Comment on above: Performed By: #### A MI1 ####[address] [address] Troponin I.cardiac mass conc ng/mL Normal 0.00-0.03 [facility] Comment on above: Result Comment: An i ncreased Troponin-I value, in the absence of myocardial ischemia, may indicate other etiologies of cardiac damage. Performed By: #### A MI1 ####[address] [address] [id number] 08-16-2017 12 Hour CPK 110 ng/mL Normal 49-397 [facility] Comment on above: Performed By: #### . Automated Diff ####[place] [id number] Troponin I.cardiac mass conc ng/mL Normal 0.00-0.03 [facility] Comment on above: Result Comment: An i ncreased Troponin-I value, in the absence of myocardial ischemia, may indicate other etiologies of cardiac damage. Performed By: #### . Automated Diff ####[place] [id number] 08-16-2017 2 Hour Myoglobin 19.0 ng/mL Normal 17.4-105.7 [facility] Comment on above: Performed By: #### . Automated Diff ####[place] [id number] Troponin I.cardiac mass conc ng/mL Normal 0.00-0.03 [facility] Comment on above: Result Comment: An i ncreased Troponin-I value, in the absence of myocardial ischemia, may indicate other etiologies of cardiac damage. Performed By: #### . Automated Diff ####[place] [id number] 08-16-2017 6 Hour Myoglobin 18.0 ng/mL Normal 17.4-105.7 [facility] Comment on above: Performed By: #### . Automated Diff ####[place] [id number] Troponin I.cardiac mass conc ng/mL Normal 0.00-0.03 [facility] Comment on above: Result Comment: An i ncreased Troponin-I value, in the absence of myocardial ischemia, may indicate other etiologies of cardiac damage. Performed By: #### . Automated Diff ####[place] [id number] CBC w/ Diffon 08-16-2017 Erythrocyte distribution width Auto Ratio (RBC) 13.3 % Normal 11.6-14.8 [facility] Comment on above: Performed By: #### C BC ####[place] [id number] Erythrocytes (RBC) 4.92 x10*6/mcL Normal 4.30-5.80 [facility] Comment on above: Performed By: #### C BC ####[address] [address] Hematocrit (HCT) 44.1 % Normal 41.0-53.0 [facility] Comment on above: Performed By: #### C BC ####[address] [address] Hemoglobin mass conc (Bld) 15.1 g/dL Normal 13.5-17.5 [facility] Comment on above: Performed By: #### C BC ####[address] [address] MCH 30.6 pg Normal 27.0-35.0 [facility] Comment on above: Performed By: #### C BC ####[address] [address] MCHC mass conc (RBC) 34.2 % Normal 31.0-37.0 [facility] Comment on above: Performed By: #### C BC ####[address] [address] MCV 89.7 fL Normal 80.0-100.0 [facility] Comment on above: Performed By: #### C BC ####[address]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
[2023-10-15 09:18] LABS: Basophils Percent Auto 0.2 % (0.2-2.0); Eosinophils Absolute Auto 0.1 10^3/uL (0.0-0.7); Eosinophils Percent Auto 1.2 % (0.9-7.0); Hematocrit 46.3 % (42.0-54.0); Hemoglobin 15.2 g/dL (14.0-18.0); Immature Granulocytes Abs Auto 0.03 10^3/uL (0.00-0.03); Immature Granulocytes Pct Auto 0.5 % (0.0-0.5); Lymphocytes Absolute Auto 2.1 10^3/uL (1.2-3.8); Lymphocytes Percent Auto 35.4 % (20.5-60.0); Mean Corpuscular HGB Conc 32.8 g/dL (29.9-35.2); Mean Corpuscular Hemoglobin 29.3 pg (25.9-34.0); Mean Corpuscular Volume 89.4 fL (80.0-94.0); Mean Platelet Volume 11.1 fL (9.5-13.5); Monocytes Absolute Auto 0.4 10^3/uL (0.3-0.8); Monocytes Percent Auto 7.4 % (1.7-12.0); Neutrophils Absolute Auto 3.2 10^3/uL (1.4-6.5); Neutrophils Percent Auto 55.3 % (43.0-75.0); Platelet Count 239 10^3/uL (150-450); Red Blood Count 5.18 10^6/uL (4.70-6.10); Red Cell Distribution Width 12.4 % (11.0-15.0); White Blood Count 5.8 10^3/uL (4.0-11.0)
[2023-10-15 09:38] LABS: Alanine Aminotransferase 28 U/L (16-63); Albumin Globulin Ratio 0.9; Albumin Level 3.3 g/dL (3.4-5.0); Alkaline Phosphatase 99 U/L (46-116); Anion Gap 11.7; Aspartate Amino Transferase 14 U/L (15-37); BUN Creatinine Ratio 21.4; Bilirubin Direct 0.1 mg/dL (0.0-0.2); Bilirubin Total 0.4 mg/dL (0.2-1.0); Carbon Dioxide 26.1 mmol/L (21.0-32.0); Chloride 107 mmol/L (98-107); Chol HDL Ratio 4.2; Cholesterol 216 mg/dL (<=200); Estimated GFR (African America >60 (>=60); Estimated GFR (Non-African Ame >60 (>=60); Globulin 3.6 g/dL; Glucose 93 mg/dL (74-106); HDL Cholesterol 52 mg/dL (40-60); Potassium 4.8 mmol/L (3.5-5.1); Sodium 140 mmol/L (136-145); Thyroid Stimulating Hormone 3.194 uIU/mL (0.358-3.740); Total Protein 6.9 g/dL (6.4-8.2); Triglycerides 155 mg/dL (<=150)
[2023-10-15 09:51] LABS: Estimated Average Glucose 108 mg/dL; Glycohemoglobin A1C 5.4 % (4.5-6.2)
== END 2023-10-15 08:07 | disposition home or self-care (01) ==
LOC: LAB 08:07
PROVIDERS: PCP Family Medicine; Visit Provider Family Medicine
DX: Z00.00 Encounter for general adult medical examination without abnormal findings (principal)
CPT/HCPCS: 36415; 80048; 80061; 80076; 83036; 84443; 85025

== ENCOUNTER 2024-03-07 21:08 | Emergency (ER) | payer OTHER, SELFPAY ==
[2024-03-07] VITALS (20 sets, daily range): BP systolic 115–153; BP diastolic 65–95; PULSE 55–102; TEMP 36.9; O2SAT 96–100; BMI 30.8
--- OUTSIDE RECORDS SUMMARY | 2024-03-07 21:14 | XMS_ITS | CCD ---
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 Name Role Phone KUMARALINGAM, MARINA Unavailable Unavailabl e KUMARALINGAM, MARINA Unavailable UnavailNickolas Corona Unavailable Unavailable NICKOLAS LIM Unavailable Unavailable MISBrittnee, DR HOU Primary Care Unavailable JAGDISH, MALLORY Attending Unavailable JAGDISH, MALLORY Consulting Unavailable JAGDISH, MALLORY Admitting Unavailable JENIFER BARNARD Consulting Unavailable ABI, DR HERNANDEZ Edwards Consulting Unavailable JENNIFER, DR FRANCISCO Mares Attending Unavailable JENNIFER, DR FRANCISCO Mares Primary Care Unavailable JENNIFER, DR FRANCISCO Mares Admitting Unavailable JENNIFER, DR FRANCISCO Mares Consulting Unavailable FRANCISCO RODRIGUEZ Primary Care Physician [phone] Emigdio HORVATH Attending Unavailable YULIET, Emigdio Edwards Attending Unavailable YULIET, Emigdio Edwards Attending Unavailable Yuliet, Emigdio Admitting Unavailable Yuliet, Emigdio Attending Unavailable Nickolas Lim Primary Care Unavailable JENNIFER, FRANCISCO Attending Unavailable JENNIFER, FRANCISCO Attending Unavailable Francisco Rodriguez MD Primary Care Provider [phone] Allergies Allergy Classification Reported Allergen(s) Allergy Type Date of Onset Reaction(s) Facility (2 sources) No Known Medication Allergies; Translations: [No Known Medication Allergies] Propensity to adverse reactions to drug (disorder) [facility] Repository Medications Current Medications Medication Drug Class(es) Dates Sig (Normalized) Sig (Original) triamcinolone acetonide 5 mg/ml topical cream (1 source) Corticosteroid Start: 09-19-2023 triamcinolone (Kenalog) 0.5 % cream Indications: Dermatitis, dyshidrotic Apply topically 3 (three) times a day 60 g 2 09/19/2023 Active Problems Active Problems Problem Classification Problem Date Documented Date Episodic/Chronic Contraceptive and procreative management (1 source) Contraception status; Translations: [Encounter for other general counseling and advice on contraception] Onset: 04-12-2022 Episodic Nausea and vomiting (1 source) Vomiting, unspecified; Translations: [VOMITING UNSPECIFIED] Onset: 12-11-2021 Episodic Other liver diseases (1 source) Non-alcoholic fatty liver; Translations: [Fatty (change of) liver, not elsewhere classified] Onset: 09-19-2023 09-19-2023 Chronic Substance-related disorders (1 source) Nicotine dependence, cigarettes, uncomplicated; Translations: [NICOTINE DEPEND CIGARETTES UNCOMP] Onset: 12-11-2021 Chronic Unclassified (2 sources) Patient encounter status 04-12-2022 Unclassified (1 source) Encounter for sterilization; Translations: [Encounter for sterilization] Onset: 07-02-2022 Past or Other Problems Problem Classification Problem Date Documented Da te Episodic/Chronic Abdominal pain (1 source) Right upper quadrant pain; Translations: [Right upper quadrant pain] Onset: 06-20-2023 Resolved: 09-19-2023 09-19-2023 Episodic Nonspecific chest pain (6 sources) Chest pain, unspecified; Translations: [Other chest pain] Onset: 12-11-2021 Resolved: 06-20-2023 Episodic Other skin disorders (1 source) Vesicular eczema; Translations: [Dyshidrosis [pompholyx]] Onset: 09-19-2023 09-19-2023 Episodic Results Test Name Value Interpretation Reference Range Facility ALL CBC WITH AUTO DIFFon BASOPHILS ABSOLUTE AUTO 0.0 [facility] Basophils/100 WBC (Bld) 0.2 % 0.2 - 2.0 % [facility] Eosinophils/100 WBC (Bld) 1.2 % 0.9 - 7.0 % [facility] Erythrocyte distribution width (RBC) [Ratio] 12.4 % 11.0 - 15.0 % [facility] Hematocrit (Bld) [Volume fraction] 46.3 % 42.0 - 54.0 % [facility] Hemoglobin (Bld) [Mass/Vol] 15.2 g/dL 14.0 - 18.0 g/dL [facility] IMM[facility] granulocytes/100 WBC (Bld) 0.5 % 0.0 - 0.5 % [facility] LYMPHOCYTES ABSOLUTE AUTO 2.1 [facility] Lymphocytes/100 WBC (Bld) 35.4 % 20.5 - 60.0 % [facility] MCH (RBC) [Entitic mass] 29.3 pg 25.9 - 34.0 pg [facility] MCHC (RBC) [Mass/Vol] 32.8 g/dL 29.9 - 35.2 g/dL [facility] MCV (RBC) [Entitic vol] 89.4 fL 80.0 - 94.0 fL [facility] MONOCYTES ABSOLUTE AUTO 0.4 [facility] Monocytes/100 WBC (Bld) 7.4 % 1.7 - 12.0 % [facility] NEUTROPHILS ABSOLUTE AUTO 3.2 [facility] Neutrophils/100 WBC (Bld) 55.3 % 43.0 - 75.0 % [facility] Platelet mean volume (Bld) [Entitic vol] 11.1 fL 9.5 - 13.5 fL [facility] TBH EO # 0.1 [facility] PLT 239 [facility] RBC 5.18 [facility] TB WBC 5.8 [facility] Ambulatory Visit Summaryon 0 07-16-2022 Ambulatory Visit Summary LULY SANDHU :1990 Visit Date:07/16/2022 Ambulatory Visit Instructions Your Diagnosis Status post vasectomy Your Care Team Attending Physician - Emigdio HORVATH MD Primary Care Physician - JENNIFER CARR, FRANCISCO Procedures Performed Vasectomy (07/02/2022). Discharge Vitals Heart Rate (Peripheral) 79 Respiratory Rate 16 Blood Pressure 130/86 Height 187 cm Height 74 in Weight 114 kg Weight 250.8 lb BMI 32.6 What to do next You Need to Schedule the Following Appointments Follow Up with YULIET CARR, Emigdio Edwards, URL When: Where: [facility] [address] [place] [address]- Allergies No Known Medication Allergies Problems Ongoing [...] type cont (more content not included)... Normal [facility] Patient Educationon 07-17-19 Patient Education Obstetrics [...] man ca (more content not included)... Normal [facility] Urology Office/Clinic Noteon 07-16-2022 Urology Office/Clinic [...] [facility] [address], [place] [address]- Additional Instructions: PRN Patient Education Contraception Choices [...] Recorded Hib, unspecified formulation 1990 Recorded Normal [facility] Comment on above: Result Comment: Elec tronically Signed By: YULIET CARR, Emigdio Santosbr\Date and Time Signed: 07/16/22 08:26 EDT\.br\Electronically Co-Signed By: Melissa Beaulieu.br\Date and Time Co-Signed: 07/16/22 08:10 EDT Pathology Noteon 07-08-2022 Pathology Note [id number]#[id number]:127 Normal [facility] Operative Reporton Operative Report [id number]:127 Normal [facility] Vahid 07-02-2022 L ------ Specimen: [id number] Received: 07/02/22 Status: DEREK Middleton Num: [id number] Spec Type: Surgical Subm Dr: Emigdio Horvath MD Tissues: A VAS DEFERENS - sterilization (LT VAS DEF) B VAS DEFERENS - sterilization (RT VAS DEF) Procedures: Nelia MARTINEZ/Rohit L2/2 Age/ Patient Sex Location Account Attending Physician Luly Sandhu 32/M OR [id number] Emigdio Horvath MD SPEC NUM: [id number] RECD: 07/02/22 STATUS: DEREK MCARTHURRoscoe NUM: [id number] CHING: 07/02/22- [facility] DR: Emigdio Horvath MD ENTERED: 07/02/[address] [facility] [address]: [facility] SPEC TYPE: Surgical DEPT: S ENTERED BY: [id number] RECV BY: [id number] ORDERED: HE/2, Gross/Micro L2/2 ORDERED: HE/2, Gross/Micro [...] submitted in one cassette labeled B1. Specimen: [id number] Received: 07/02/22 Status: VINCENZOCindy Middleton Num: [id number] Spec Type: Surgical Subm Dr: Emigdio Horvath MD Tissues: A VAS DEFERENS - sterilization (LT VAS DEF) B VAS DEFERENS - sterilization (RT VAS DEF) Procedures: HE/2, Gross/Micro L2/2 Patient: Luly Sandhu [id number] (Continued) Specimen: Received: 07/02/22 (Continued) Signed (signature on file) Jose_Cora Obregon MD 07/05/22 0940 Specimen: Received: 07/02/22 Status: DEREK Middleton Num: [id number] Spec Type: Surgical Subm Dr: Emigdio Horvath MD Tissues: A VAS DEFERENS - sterilization (LT VAS DEF) B VAS DEFERENS - sterilization (RT VAS DEF) Procedures: HE/Farzad, Gross/Micro L2/2 Patient: MarthaLuly [id number] (Continued) Specimen: [id number] Received: 07/02/22 (Continued) Microscopic Description A. One H E slide reviewed. The microscopic examination confirms the diagnosis. B. One H E slide reviewed. The microscopic examination confirms the diagnosis. CPT Codes 91827?2 Specimen: [id number] Received: 07/02/22 Status: DEREK Middleton Num: [id number] Spec Type: Surgical Subm Dr: Emigdio Horvath MD Tissues: A VAS DEFERENS - sterilization (LT VAS DEF) B VAS DEFERENS - sterilization (RT VAS DEF) Procedures: Nelia MARTINEZ/Rohit L2/2 Patient: Luly Sandhu [id number] (Continued) Signed (signature on file) Sixto Obregon MD 07/05/22 0940 [facility] Formson 04-14-2022 Forms [id number]:127 [facility] Consent for Procedure/Surger yon 04-13-2022 Consent for Procedure/Surgery [id number]#[id number]:127 [facility] Patient Educationon 04-12-19 Patient Education Urology [...] these instructions at home: Medicines ? Take yxhy-smr-qsozivf and prescription medicines only as told by [...] 08/20/2005 Document Revised: 01/13/2018 Document Reviewed: 04/29/2017 [employer] Patient Education ? 2019 [employer] [facility] Urology Office/Clinic Noteon 04-12-2022 Urology [...] Emigdio Edwards, URL [facility] [address] [place] [address]- Additional Instructions: schedule vasectomy Patient Education Vasectomy, [...] Recorded Hib, unspecified formulation 1990 Recorded Normal [facility] Comment on above: Result Comment: Elec tronically Signed By: Emigdio HORVATH MD\.br\Date and Time Signed: 04/12/22 13:28 EST\.br\Electronically Co-Signed By: Melissa Beaulieu\.br\Date and Time Co-Signed: 04/12/22 13:21 EST NM STRESS/REST MULTIon 01-27 NM STRESS/REST MULTI Patient: LULY SANDHU Exam Date: 01/27/2022 : 1990 Gender:M Ordering : DR FRANCISCO RODRIGUEZ . Admission #: [id number] Family : Order #: [id number] CLICK HERE TO VIEW EXAM RADIOLOGY REPORT [...] upper limits of normal. Dictated by: Hernandez Alex M.D. on 01/27/2022 at 15:58 Approved by: Hernandez Alex M.D. on 01/27/2022 at 16:00 Normal [facility] CARDIAC IVETT 3-6on 2 CK [Catalytic activity/Vol] 125 U/L Normal 39-308 [facility] Comment on above: Performed By: #### C MREP #### [facility] [address] [place] [address] Dr. Coby Singleton CK.MB [Mass/Vol] 0.61 ng/mL Normal <=3.60 [facility] Comment on above: Performed By: #### C MREP #### [facility] [address] [address] [address] Coby Singleton HSTROP 4.9 pg/mL Normal 4.0-76.1 [facility] Comment on above: Result Comment: CUT- OFF POINTS HAVE BEEN ESTABLISHED BASED ON THE FOURTH UNIVERSAL DEFINITIONS OF MYOCARDIAL INFARCTION. THE UPPER REFERENCE LIMIT (URL) OF TROPONIN, DEFINED THE 99TH PERCENTILE OF cTnI DISTRIBUTION IN A REFERENCE POPULATION, HAS BEEN CONFIRMED THE DECISION THRESHOLD FOR MS DIAGNOSIS. Performed By: #### C MREP #### [facility] [address] [place] [address] Dr. Coby Singleton CARDIAC IVETT ADMITon 022 CK [Catalytic activity/Vol] 132 U/L Normal 39-308 [facility] Comment on above: Performed By: #### C MADM, BMP #### [facility] [address] [address] [address] Coby Singleton CK.MB [Mass/Vol] 0.76 ng/mL Normal <=3.60 [facility] Comment on above: Performed By: #### C MADM, BMP #### [facility] [address] [place] [address] Dr. Coby Singleton HSTROP 4.8 pg/mL Normal 4.0-76.1 [facility] Comment on above: Result Comment: CUT- OFF POINTS HAVE BEEN ESTABLISHED BASED ON THE FOURTH UNIVERSAL DEFINITIONS OF MYOCARDIAL INFARCTION. THE UPPER REFERENCE LIMIT (URL) OF TROPONIN, DEFINED THE 99TH PERCENTILE OF cTnI DISTRIBUTION IN A REFERENCE POPULATION, HAS BEEN CONFIRMED THE DECISION THRESHOLD FOR MS DIAGNOSIS. Performed By: #### C MADM, BMP #### [facility] [address] [place] [address] Dr. Coby Singleton EDILBERTO 50 ng/mL Normal 16-96 [facility] Comment on above: Performed By: #### C SCOTTYM, BMP #### [facility] [address] [place] [address] Dr. Coby Singleton CBC AUTO DIFFon 12-09-2021 BASO # 0.0 103/ul Normal 0.0-0.1 [facility] Comment on above: Performed By: #### C BC #### [facility] [address] [place] [address] Dr. Coby Singleton Basophils/100 WBC (Bld) 0.4 % Normal 0.2-2.0 [facility] Comment on above: Performed By: #### C BC #### [facility] [address] [place] [address] Dr. Coby Singleton EO # 0.1 103/ul Normal 0.0-0.7 [facility] Comment on above: Performed By: #### C BC #### [facility] [address] [place] [address] Dr. Coby Singleton Eosinophils/100 WBC (Bld) 1.6 % Normal 0.9-7.0 [facility] Comment on above: Performed By: #### C BC #### [facility] [address] [place] [address] Dr. Coby Singleton Erythrocyte distribution width (RBC) [Ratio] 12.2 % Normal 11.0-15.0 [facility] Comment on above: Performed By: #### C BC #### [facility] [address] [place] [address] Dr. Coby Singleton Hematocrit (Bld) [Volume fraction] 42.8 % Normal 42.0-54.0 [facility] Comment on above: Performed By: #### C BC #### [facility] [address] [place] [address] Dr. Coby Singleton Hemoglobin (Bld) [Mass/Vol] 14.7 g/dL Normal 14.0-18.0 [facility] Comment on above: Performed By: #### C BC #### [facility] [address] [place] [address] Dr. Coby Singleton IG # 0.03 10e3/ul Normal 0.00-0.03 [facility] Comment on above: Performed By: #### C BC #### [facility] [address] [place] [address] Dr. Coby Singleton IG % 0.4 % Normal 0.0-0.5 [facility] Comment on above: Performed By: #### C BC #### [facility] [address] [place] [address] Dr. Coby Singleton LYMPH # 2.4 103/ul Normal 1.2-3.8 [facility] Comment on above: Performed By: #### C BC #### [facility] [address] [place] [address] Dr. Coby Singleton Lymphocytes/100 WBC (Bld) 29.9 % Normal 20.5-60.0 [facility] Comment on above: Performed By: #### C BC #### [facility] [address] [place] [address] Dr. Coby Singleton MANUAL DIFF REQ NO Normal [facility] Comment on above: Performed By: #### C BC #### [facility] [address] [place] [address] Dr. Coby Singleton MCH (RBC) [Entitic mass] 29.5 pg Normal 25.9-34.0 [facility] Comment on above: Performed By: #### C BC #### [facility] [address] [place] [address] Dr. Coby Singleton MCHC (RBC) [Mass/Vol] 34.3 g/dL Normal 29.9-35.2 [facility] Comment on above: Performed By: #### C BC #### [facility] [address] [place] [address] Dr. Coby Singleton MCV (RBC) [Entitic vol] 85.8 fL Normal 80.0-94.0 [facility] Comment on above: Performed By: #### C BC #### [facility] [address] [place] [address] Dr. Coby Singleton MONO # 0.6 103/ul Normal 0.3-0.8 [facility] Comment on above: Performed By: #### C BC #### [facility] [address] [place] [address] Dr. Coby Singleton Monocytes/100 WBC (Bld) 7.6 % Normal 1.7-12.0 [facility] Comment on above: Performed By: #### C BC #### [facility] [address] [place] [address] Dr. Coby Singleton NEUT # 4.7 103/ul Normal 1.4-6.5 [facility] Comment on above: Performed By: #### C BC #### [facility] [address] [place] [address] Dr. Coby Singleton Neutrophils/100 WBC (Bld) 60.1 % Normal 43.0-75.0 [facility] Comment on above: Performed By: #### C BC #### [facility] [address] [place] [address] Dr. Coby Singleton Platelet mean volume (Bld) [Entitic vol] 10.5 fL Normal 9.5-13.5 [facility] Comment on above: Performed By: #### C BC #### [facility] [address] [address] [address] Coby Singleton PLT 267 103/ul Normal 150-450 [facility] Comment on above: Performed By: #### C BC #### [facility] [address] [place] [address] Dr. Coby Singleton RBC 4.99 106/ul Normal 4.70-6.10 [facility] Comment on above: Performed By: #### C BC #### [facility] [address] [place] [address] Dr. Coby Singleton WBC 7.9 103/ul Normal 4.0-11.0 [facility] Comment on above: Performed By: #### C BC #### [facility] [address] [place] [address] Dr. Coby Singleton D-DIMERon 12-09-2021 D-DIMER 0.19 mg/L FEU Normal <=0.59 [facility] Comment on above: Performed By: #### D DIM #### [facility] [address] [place] [address] Dr. Coby Singleton D-DIMER COMMENTS SEE BELOW Normal [facility] Comment on above: Result Comment: Incr [...] hospitalization. Performed By: #### D DIM #### [facility] [address] [place] [address] Dr. Coby Singleton PROF CHEM 8 (BAS METB)on Anion gap [Moles/Vol] 8.5 mmol/L Normal [facility] Comment on above: Performed By: #### C MADM, BMP #### [facility] [address] [place] [address] Dr. Coby Singleton Calcium [Mass/Vol] 8.7 mg/dL Normal 8.5-10.1 [facility] Comment on above: Performed By: #### C MELY, BMP #### [facility] [address] [place] [address] Dr. Coby Singleton Chloride [Moles/Vol] 109 mmol/L Critically high 98-107 [facility] Comment on above: Performed By: #### C MELY, BMP #### [facility] [address] [place] [address] Dr. Coby Singleton CO2 [Moles/Vol] 23.4 mmol/L Normal 21.0-32.0 [facility] Comment on above: Performed By: #### C MELY, BMP #### [facility] [address] [place] [address] Dr. Coby Singleton Creatinine [Mass/Vol] 1.14 mg/dL Normal 0.70-1.30 [facility] Comment on above: Performed By: #### C MELY, BMP #### [facility] [address] [place] [address] Dr. Coby Singleton EGFR-AF PUERTO RICAN >60 Normal >=60 [facility] Comment on above: Performed By: #### C MELY, BMP #### [facility] [address] [place] [address] Dr. Coby Singleton EGFR-NON AF PUERTO RICAN >60 Normal >=60 [facility] Comment on above: Performed By: #### C MELY, BMP #### [facility] [address] [place] [address] Dr. Coby Singleton Glucose [Mass/Vol] 100 mg/dL Normal 74-106 [facility] Comment on above: Performed By: #### C MELY, BMP #### [facility] [address] [place] [address] Dr. Coby Singleton Potassium [Moles/Vol] 4.9 mmol/L Normal 3.5-5.1 [facility] Comment on above: Performed By: #### C MELY, BMP #### [facility] [address] [place] [address] Dr. Coby Singleton Sodium [Moles/Vol] 136 mmol/L Normal 136-145 [facility] Comment on above: Performed By: #### C MELY, SUZI #### [facility] [address] [address] [address] Coby Singleton Urea nitrogen [Mass/Vol] 17.0 mg/dL Normal 7.0-18.0 [facility] Comment on above: Performed By: #### C MELY, BMP #### [facility] [address] [address] [address] Coby Snigleton Urea nitrogen/Creatinine [Mass ratio] 14.9 mg/mg Normal [facility] Comment on above: Performed By: #### C MELY, BMP #### [facility] [address] [address] [address] Coby Singleton XR CHEST 2 Von 12-09-2021 XR CHEST 2 V EXAM: XR CHEST 2 V COMPARISON: None available. CLINICAL INDICATION: Chest pain. FINDINGS: The cardiomediastinal silhouette is within normal limits. No focal consolidation. No pleural effusion. No pneumothorax. No evidence of acute osseous abnormality. IMPRESSION: No acute findings. Electronically authenticated by: JENIFER BARNARD Date: 2021-12-09 20:51 Normal [facility] .eGFRon 08-17-2017 eGFR (non-black) mL/min/{1.73_m2} Normal >=60 [facility] Comment on above: Result Comment: Resu lt [...] for medication dosing. Performed By: #### C ####[address] [address] Result Comment: Resu lt = 0-14.9 mL/min/1.73 m2 Kidney failure or DialysisResult = 15-29 mL/min/1.73 m2 Severe decrease in GFRResult = 30-59 mL/min/1.73 m2 Moderate decrease in GFRResult >= 60 mL/min/1.73 m2 Normal or increased GFR CBCon 08-17-2017 Erythrocyte distribution width Auto Ratio (RBC) 13.7 % Normal 11.6-14.8 [facility] Comment on above: Performed By: #### C BC ####[place] [address] Erythrocytes (RBC) 4.72 x10*6/mcL Normal 4.30-5.80 [facility] Comment on above: Performed By: #### C BC ####[place] [address] Hematocrit (HCT) 42.5 % Normal 41.0-53.0 [facility] Comment on above: Performed By: #### C BC ####[place] [address] Hemoglobin mass conc (Bld) 14.7 g/dL Normal 13.5-17.5 [facility] Comment on above: Performed By: #### C BC ####[place] [address] MCH 31.1 pg Normal 27.0-35.0 [facility] Comment on above: Performed By: #### C BC ####[address] [id number] MCHC mass conc (RBC) 34.5 % Normal 31.0-37.0 [facility] Comment on above: Performed By: #### C BC ####[address] [id number] MCV 90.0 fL Normal 80.0-100.0 [facility] Comment on above: Performed By: #### C BC ####[address] [place] [id number] Platelet mean volume (PMV) 9.2 fL Normal 6.7-10.6 [facility] Comment on above: Performed By: #### C BC ####[address] [address] Platelets 222 x10*3/mcL Normal 150-350 [facility] Comment on above: Performed By: #### C BC ####[address] [address] WBC (Leukocytes) 6.9 x10*3/mcL Normal 4.5-11.0 [facility] Comment on above: Performed By: #### C BC ####[address] [address] CMPon 08-17-2017 Alanine aminotransferase (ALT) 13 U/L Low 17-63 [facility] Comment on above: Performed By: #### C BC ####[address] [address] Albumin 3.6 g/dL Normal 3.2-4.9 [facility] Comment on above: Performed By: #### C BC ####[address] [address] Albumin/Globulin Ratio 1.3 {ratio} Normal 1.1-2.2 [facility] Comment on above: Performed By: #### C BC ####[address] [address] Alk Phos 90 IU/L Normal 32-91 [facility] Comment on above: Performed By: #### C BC ####[address] [address] Anion gap 10 mmol/L Normal 7-17 [facility] Comment on above: Performed By: #### C BC ####[address] [address] Aspartate aminotransferase (AST) 19 U/L Normal 15-41 [facility] Comment on above: Performed By: #### C BC ####[address] [address] Bili Total 0.7 mg/dL Normal 0.3-1.2 [facility] Comment on above: Performed By: #### C BC ####[address] [address] BUN/Creatinine Ratio 16.5 mg/mg Normal 15.0-25.0 [facility] Comment on above: Performed By: #### C BC ####[address] [address] Calcium 8.6 mg/dL Normal 8.5-10.3 [facility] Comment on above: Performed By: #### C BC ####[address] [address] Chloride 110 mmol/L Normal 98-110 [facility] Comment on above: Performed By: #### C BC ####[address] [address] CO2 23 mmol/L Normal 22-32 [facility] Comment on above: Performed By: #### C BC ####[address] [address] Creatinine 0.91 mg/dL Normal 0.61-1.24 [facility] Comment on above: Performed By: #### C BC ####[address] [address] Glucose mass conc 97 mg/dL Normal 74-118 [facility] Comment on above: Performed By: #### C BC ####[address] [address] Potassium molar conc 4.7 mmol/L Normal 3.4-4.8 [facility] Comment on above: Performed By: #### C BC ####[address] [address] Protein 6.3 g/dL Low 6.5-8.1 [facility] Comment on above: Performed By: #### C BC ####[address] [address] Sodium 138 mmol/L Normal 133-142 [facility] Comment on above: Performed By: #### C BC ####[facility] [place] [address] Urea nitrogen 15 mg/dL Normal 8- [facility] Comment on above: Performed By: #### C BC ####[address] [place] [address] Discharge Summaryon 08-18-19 Discharge Summary Admission Informatio n Date of Arrival: 08/16/2017 Date of Discharge: 08/17/2017 Admitting Dx: Electric injury in an adult, palpitations Discharge Dx: electric injury in an adult, palpitations Consulting Providers: None History of Present Illness This is a 27-year-old male patient who was at work at [employer] and took a shock from 1000 V [...] Dose: 08/16/17 12:06:00 EDT, Dispense From Location: [facility] acetaminophen, 650 mg, Oral, Tab, q6hr, PRN mild pain [1-3 on pain scale], First Dose: 08/16/17 12:06:00 EDT, Dispense From Location: [facility] enoxaparin, 40 mg, Subcutaneous, Injection, Daily, First Dose: 08/17/17 9:00:00 EDT, Dispense From Location: [facility] ondansetron, 4 mg, IV Push, Injection, q4hr, PRN nausea, First Dose: 08/16/17 12:06:00 EDT, Dispense From Location: [facility] sodium chloride, 10 mL, IV Push, Injection, As Indicated, PRN flush, First Dose: 08/16/17 12:06:00 EDT, Dispense From Location: [facility] Activity Restrictions Alarm Limit Settings [...] Татьяна Rapp CNP 08/17/17 08:48 EDT Normal [facility] Inpatient Clinical Summaryon 08-17-2017 Inpatient Clinical Summary [address] [address]Cxkummeu SummaryPerson InformationName: Luly Sandhu Age: 27 Years : 1990Sex: Male PCP: Nickolas Lim DO Status:Single Phone: PCP: [phone]:White Ethnicity:Not or Language:EnglishMRN: [id number] Visit Id: Reason:Tachycardia; Tachycardia Speciality: Acuity:Enc Type: Observation Med Service: CardiologyArrival:08/16/2017 08:47:00 Discharge: Dispo Type: Place in ObservationAddress:[address] [facility] [address]Jhanathga: 1:Electrical injury in adult; 2:PalpitationsDischarged To:Home Treatments:Devices/Equipme [...] range between ( 27.2 and 40.8 ) [place] Auto: 9.3 % -- Normal range between ( 4.7 and 13.9 ) Eos Auto: 2.0 % -- Normal range between ( 0.0 and 6.1 ) Basophil Auto: 0.3 % -- Normal range between ( 0.0 and 1.2 ) Baso Absolute: 0.0 x10 Lymph Absolute: 2.6 x10 [place] Absolute: 0.7 x10 Neutro Absolute: 4.2 x10 [...] MauricioepConsulting Physician:Referring Physician:Follow up:With: Address: When:Nickolas Lim [address] [place], [place] [phone] Business (1) Within 1 weekComments:Call for followup appointment Normal [facility] Magnesiumon 08-17-2017 Magnesium 2.0 mg/dL Normal 1.7-2.4 [facility] Comment on above: Performed By: #### C BC ####[address] [place] [address] Phosphoruson 08-17-2017 Phosphate 3.6 mg/dL Normal 2.5-4.6 [facility] Comment on above: Performed By: #### C BC ####[address] [place] [address] .eGFRon 08-16-2017 eGFR (non-black) mL/min/{1.73_m2} Normal >=60 [address] [facility] Comment on above: Result Comment: Resu lt [...] medication dosing. Performed By: #### E GFR ####[address] [address] Result Comment: Resu lt = 0-14.9 mL/min/1.73 m2 Kidney failure or DialysisResult = 15-29 mL/min/1.73 m2 Severe decrease in GFRResult = 30-59 mL/min/1.73 m2 Moderate decrease in GFRResult >= 60 mL/min/1.73 m2 Normal or increased GFR AMI Initon 08-16-2017 Initial Myoglobin 15.0 ng/mL Low 17.4-105.7 [facility] Comment on above: Performed By: #### A MI1 ####[address] [address] Troponin I.cardiac mass conc ng/mL Normal 0.00-0.03 [facility] Comment on above: Result Comment: An i ncreased Troponin-I value, in the absence of myocardial ischemia, may indicate other etiologies of cardiac damage. Performed By: #### A MI1 ####[address] [address] [id number] 08-16-2017 12 Hour CPK 110 ng/mL Normal 49-397 [facility] Comment on above: Performed By: #### . Automated Diff ####[address] [address] Troponin I.cardiac mass conc ng/mL Normal 0.00-0.03 [facility] Comment on above: Result Comment: An i ncreased Troponin-I value, in the absence of myocardial ischemia, may indicate other etiologies of cardiac damage. Performed By: #### . Automated Diff ####[address] [address] [id number] 08-16-2017 2 Hour Myoglobin 19.0 ng/mL Normal 17.4-105.7 [facility] Comment on above: Performed By: #### . Automated Diff ####[address] [address] Troponin I.cardiac mass conc ng/mL Normal 0.00-0.03 [facility] Comment on above: Result Comment: An i ncreased Troponin-I value, in the absence of myocardial ischemia, may indicate other etiologies of cardiac damage. Performed By: #### . Automated Diff ####[address] [address] [id number] 08-16-2017 6 Hour Myoglobin 18.0 ng/mL Normal 17.4-105.7 [facility] Comment on above: Performed By: #### . Automated Diff ####[address] [address] Troponin I.cardiac mass conc ng/mL Normal 0.00-0.03 [facility] Comment on above: Result Comment: An i ncreased Troponin-I value, in the absence of myocardial ischemia, may indicate other etiologies of cardiac damage. Performed By: #### . Automated Diff ####[place] [address] CBC w/ Diffon 08-16-2017 Erythrocyte distribution width Auto Ratio (RBC) 13.3 % Normal 11.6-14.8 [facility] Comment on above: Performed By: #### C BC ####[id number] Erythrocytes (RBC) 4.92 x10*6/mcL Normal 4.30-5.80 [facility] Comment on above: Performed By: #### C BC ####[id number] Hematocrit (HCT) 44.1 % Normal 41.0-53.0 [facility] Comment on above: Performed By: #### C BC ####[place] [address] Hemoglobin mass conc (Bld) 15.1 g/dL Normal 13.5-17.5 [facility] Comment on above: Performed By: #### C BC ####[id number] MCH 30.6 pg Normal 27.0-35.0 [facility] Comment on above: Performed By: #### C BC ####[id number] MCHC mass conc (RBC) 34.2 % Normal 31.0-37.0 [facility] Comment on above: Performed By: #### C BC ####[id number] MCV 89.7 fL Normal 80.0-100.0 [facility] Comment on above: Performed By: #### C BC ####[id number] Platelet mean volume (PMV) 9.1 fL Normal 6.7-10.6 [facility] Comment on above: Performed By: #### C BC ####[address] [address] Platelets 232 x10*3/mcL Normal 150-350 [facility] Comment on above: Performed By: #### C BC ####[address] [address] WBC (Leukocytes) 7.7 x10*3/mcL Normal 4.5-11.0 [facility] Comment on above: Performed By: #### C BC ####[address] [address] CMPon 08-16-2017 Alanine aminotransferase (ALT) 16 U/L Low 17-63 [facility] Comment on above: Performed By: #### C OMP ####[address] [address] Albumin 4.0 g/dL Normal 3.2-4.9 [facility] Comment on above: Performed By: #### C OMP ####[address] [address] Albumin/Globulin Ratio 1.3 {ratio} Normal 1.1-2.2 [facility] Comment on above: Performed By: #### C OMP ####[address] [address] Alk Phos 104 IU/L High 32-91 [facility] Comment on above: Performed By: #### C OMP ####[address] [address] Anion gap 10 mmol/L Normal 7-17 [facility] Comment on above: Performed By: #### C OMP ####[address] [address] Aspartate aminotransferase (AST) 22 U/L Normal 15-41 [facility] Comment on above: Performed By: #### C OMP ####[address] [address] Bili Total 0.7 mg/dL Normal 0.3-1.2 [facility] Comment on above: Performed By: #### C OMP ####[address] [address] BUN/Creatinine Ratio 18.0 mg/mg Normal 15.0-25.0 [facility] Comment on above: Performed By: #### C OMP ####[address] [address] Calcium 8.9 mg/dL Normal 8.5-10.3 [facility] Comment on above: Performed By: #### C OMP ####[address] [address] Chloride 110 mmol/L Normal 98-110 [facility] Comment on above: Performed By: #### C OMP ####[address] [address] CO2 22 mmol/L Normal 22-32 [facility] Comment on above: Performed By: #### C OMP ####[address] [address] Creatinine 1.00 mg/dL Normal 0.61-1.24 [facility] Comment on above: Performed By: #### C OMP ####[address] [address] Glucose mass conc 96 mg/dL Normal 74-118 [facility] Comment on above: Performed By: #### C OMP ####[address] [address] Potassium molar conc 4.5 mmol/L Normal 3.4-4.8 [facility] Comment on above: Performed By: #### C OMP ####[address] [address] Protein 7.1 g/dL Normal 6.5-8.1 [facility] Comment on above: Performed By: #### C OMP ####[address] [address] Sodium 138 mmol/L Normal 133-142 [facility] Comment on above: Performed By: #### C OMP ####[address] [place] [address] Urea nitrogen 18 mg/dL Normal 8-26 [facility] Comment on above: Performed By: #### C OMP ####[address] [place] [address] CPKon 08-16-2017 Creatine Phosphokinase 142 IU/L Normal 49-397 [facility] Comment on above: Performed By: #### C P ####[address] [address] Cardiac Echocardiogram Trans thoracicon 08-16-2017 Cardiac Echocardiogram Transthoracic TRANSTHORACIC ECHOCARDIOGRAMStudy Date/Time: Aug 16 2017 12:35PMBP: 134 / 82HR: 65 bpmHT/WT: 188 cm (74 in) / 95.3 kg (209.6 lb)BSA/BMI: 2.24 m2 / 27 kg/c6XCVCMZFC PROVIDER: Татьяна Larry PHYSICIAN: Nay Glaser MDCARDIAC PHYSICAL MEDICINE SPECIALIST: Nely Hector ----INDICATIONS: >1000 volts electrical shock. --------CONCLUSIONSSUMMARY :1. Left ventricle: Systolic function is normal. The estimated ejection fraction is 55-60%.2. Normal left ventricular function.3. Normal right ventricular function.4. Normal chamber dimensions.5. Normal valve structure with no significant stenosis or regurgitation. STUDY DATA: M-mode, complete 2D, complete spectral Doppler, and color Doppler. Study status: Routine. Patient status: Inpatient. Location: [place] [address]. Procedure: Transthoracic echocardiography was performed. Imagequality was [...] MD08/16/2017 16:04 Final Dictated by: Nay Glaser MD DT/TM: 08/16/2017 4:04 pmSigned by: Alfredito MD, Nay SueSigned (Electronic Signature): 08/16/2017 4:04 pm(If Report Is Signed, Electronically Signed in Other Vendor System) Normal [facility] Diff Autoon 08-16-2017 Baso Absolute 0.0 x10*3/mcL Normal 0.0-0.2 [facility] Comment on above: Performed By: #### . Automated Diff ####[address] [address] Basophils/100 WBC Auto (Bld) 0.3 % Normal 0.0-1.2 [facility] Comment on above: Performed By: #### . Automated Diff ####[address] [address] Eos Absolute 0.2 x10*3/mcL Normal 0.0-0.4 [facility] Comment on above: Performed By: #### . Automated Diff ####[address] [address] Eosinophils/100 leukocytes 2.0 % Normal 0.0-6.1 [facility] Comment on above: Performed By: #### . Automated Diff ####[address] [address] Lymphocytes 2.6 x10*3/mcL Normal 1.0-4.8 [facility] Comment on above: Performed By: #### . Automated Diff ####[address] [address] Lymphocytes/100 leukocytes 33.9 % Normal 27.2-40.8 [facility] Comment on above: Performed By: #### . Automated Diff ####[address] [address] [place] Absolute 0.7 x10*3/mcL Normal 0.3-1.1 [facility] Comment on above: Performed By: #### . Automated Diff ####[address] [address] Monocytes/100 leukocytes 9.3 % Normal 4.7-13.9 [facility] Comment on above: Performed By: #### . Automated Diff ####[address] [address] Neutro Absolute 4.2 x10*3/mcL Normal 1.8-7.7 [facility] Comment on above: Performed By: #### . Automated Diff ####[address] [place] [address] Neutro Auto 54.5 % Normal 47.2-70.8 [facility] Comment on above: Performed By: #### . Automated Diff ####[address] [address] ED Clinical Summaryon 2017 ED Clinical Summary (Inserted Image. Debo ble to display) [address] [address] ED Clinical SummaryPerson InformationName: Luly Sandhu/[facility] Age: 27 Years : 1990Sex: Male PCP: Nickolas Lim DO Status:Single Phone:Race:White Ethnicity:Not or Language:EnglishMRN: [id number] Reason:Tachycardia; Tachycardia Acuity: 2Enc Type: Observation Med Service: Emergency MedicineArrival:08/16/2017 08:47:00 Discharge: LOS: 000 08:36Checkin:08/16/2017 08:47:00 Checkout: 08/16/2017 17:23:44 Dispo Type: Place in ObservationAddress:[address] [place] [address] Provider Notes: History of Present IllnessPatient presents [...] range between ( 27.2 and 40.8 ) [place] Auto: 9.3 % -- Normal range between [...] range between ( 41.0 and 53.0 ) [place] Absolute: 0.7 x10 MCH: 30.6 pg -- [...] Sherman CARR, MarinaConsulting Physician:Referring Physician:Provider Role Assigned UnassLuis Hill MD ED Provider 08/16/2017 08:59:20Cindy Graham ED Nurse 08/16/2017 09:58:10Follow up:Discharge Orders:Place in Observation 08/16/17 10:02:00 EDT, Coronary Care Unit, 08/16/17 10:02:00 EDT, Sherman CARR, Sherman Rea MD, MarinaRequest for Admit 08/16/17 10:03:00 EDT, 08/16/17 10:02:00 EDT, Coronary Care UnitPatient Education Information:[facility] Poison Help line: .[facility] Hotline: [place] Tobacco Quit Line: [place], [place]) [address]: [phone] ([place], [place]) [address]: [phone] [address] [facility] [address] [place], [place]: [phone] Normal [facility] ED Note-Nursingon 08-16-2017 ED Note-Nursing Pt updated about neo t time for CCU room assignment. Pt denies needs at this time. Electronically signed by Graham, Cindy 08/16/17 15:49 EDT [facility] ED Note-Nursing Patient's cardiac rh ythm on hospital monitor shows NSR. HR 75. Electronically signed by Graham, [facility] 08/16/17 15:49 EDT [facility] ED Note-Nursing Lunch meal tray prov ided. Pt denies symptoms or concerns at this time. Electronically signed by Graham, Cindy 08/16/17 13:02 EDT [facility] ED Note-Nursing Pt in Echocardiogram . Electronically signed by Graham, [facility] 08/16/17 12:53 EDT [facility] ED Note-Nursing Russian Teacher spoke with Ho use supervisor train operations regarding Pt's admission. Pt will be boarding in the ED while waiting for room availability per plant maintenance supervisor. Pt updated. Pt denies needs at this time. Pt states chest pain/tightness starting to resolved. No significant change in Pt's condition noted.Electronically signed by Stephen corleyCindy 08/16/17 10:07 EDT Normal [facility] ED Note-Physicianon 08-17-19 ED Note-Physician Chief Complaint electrocuted---feels heart ( [facility])History of Present Illness Patient presents to [...] information in this document, created by the medical consultant for me, accurately reflects the services I [...] of alleged injury. 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 His friend is with him and states the box that they were working on at the time is high voltage, greater than 1000 V. Are not sure where the injury occurred as this. Power was off to the box at the time. Patient was initially borderline tachycardic but does not have any significant dysrhythmias. Patient was placed on a laboratory monitor in. Additionally, there are no signs [...] Dose: 08/16/17 9:06:00 EDT, Dispense From Location: [facility] AMI 2 Hour Cardiac Monitoring [...] 09:15 54.5 Lymph Auto 08/16/17 09:15 33.9 [place] Auto 08/16/17 09:15 9.3 Eos Auto 08/16/17 09:15 2.0 Basophil Auto 08/16/17 09:15 0.3 Neutro Absolute 08/16/17 09:15 4.2 Lymph Absolute 08/16/17 09:15 2.6 [place] Absolute 08/16/17 09:15 0.7 Eos Absolute 08/16/17 [...] Resonance Imaging No qualifying data available. Carmen Parhamlectronically signed by K archie CARR, Luis Palma 08/16/2017 10:07 EDT Normal [facility] History and Physicalon 08-16 History and Physical Chief Complaint electrocuted---feels heart ( [facility])History of Present Illness This is a 27-year-old male patient who was at work at [employer] and took a shock from 1000 V [...] grandfather. Primary Care Provider: Nickolas Lim DO of Systems Constitutional: No fevers, chills, sweats [...] 10:22:12 IMPRESSION:No acute cardiopulmonary process. Signed By: Rosa CARR, Francisco MaharajElectronically signed by W Татьяна Rapp CNP 08/16/17 14:16 EDT Normal [facility] Magnesiumon 08-16-2017 Magnesium 2.0 mg/dL Normal 1.7-2.4 [facility] Comment on above: Performed By: #### M G ####[address] [address] [place] [id number] XR Chest 1 Viewon 08-16-2017 XR Chest [...] unremarkable.IMPRESSION:No acute cardiopulmonary process. Final Dictated by: Rosa CARR, Francisco Zuletaated DT/TM: 08/16/2017 10:22 amSigned by: Francisco Lee MDigned (Electronic Signature): 08/16/2017 10:22 am(If Report Is Signed, Electronically Signed in Other Vendor System) Normal [facility] Vital Signs Date Time Vital Sign Value Performing Clinician Jason brown 07-16-2022 08:09-0400 Blood Pressure Location Emigdio HORVATH [facility] 07-16-2022 08:09-0400 Diastolic blood pressure 86 mm[Hg] Emigdio HORVATH [facility] 07-16-2022 08:09-0400 Heart rate 79 /min Emigdio HORVATH [facility] 07-16-2022 08:09-0400 Respiratory rate 16 /min Emigdio HORVATH [facility] 07-16-2022 08:09-0400 Systolic blood pressure 130 mm[Hg] Emigdio HORVATH [facility] Encounters Encounter Date Encounter Type Care Provider Facility Start: 10-15-2023 End: 10-15-2023 Clinisync Result Encounter Francisco Rodriguez MD Work Phone: [facility] External Department Unsolicited Start: 10-15-2023 End: 10-15-2023 Clinisync Result Encounter Francisco Rodriguez MD Work Phone: [facility] External Department Unsolicited Start: 09-19-2023 Patient encounter procedure Francisco Rodriguez MD Work Phone: [facility] Start: 09-19-2023 End: 09-19-2023 ambulatory FRANCISCO RODRIGUEZ Not Available Start: 06-20-2023 End: 06-20-2023 ambulatory FRANCISCO RODRIGUEZ Not Available Start: 07-16-2022 End: 07-17-2022 ambulatory Emigdio HORVATH Facility:[facility] Start: 07-16-2022 End: 07-16-2022 Patient encounter procedure Emigdio HORVATH [facility] Start: 07-13-2022 ambulatory Emigdio HORVATH Facility :[facility] Start: 07-02-2022 End: 07-03-2022 ambulatory Emigdio HORVATH Facility:CD:[id number] Start: 04-12-2022 End: 04-13-2022 ambulatory Emigdio HORVATH Facility:[facility] Start: 04-12-2022 End: 04-12-2022 Patient encounter procedure Emigdio HORVATH [facility] Start: 01-27-2022 End: 01-28-[address] HERNANDEZ ALEX Facility:[facility] Start: 12-09-2021 End: 12-10-[address] DOCTOR FELIX Facility:[facility] Start: 08-16-2017 End: 08-17-2017 Ambulatory MARINA MOE Facility:[facility] Procedures Date Procedure Procedure Detail Performing Clinician Start: 10-15-2023 ALL CBC WITH AUTO DIFF Francisco Rodriguez MD Work Phone: Start: 07-16-2022 H/O: vasectomy Emigdio HORVATH Start: 07-02-2022 Vasectomy Emigdio HARKINS None (qualifier value) Sheryl HORVATH Plan of Treatment Date Care Activity Detail Author Start: 10-16-2023 Influenza vaccination Influenza Vacc ine (#1) [facility] Immunizations Immunization Date Immunization Notes Care Provider Alan ya 10-23-2004 measles, mumps and rubella virus vaccine Emigdio HORVATH [facility] 09-20-1996 DTaP, unspecified formulation Emigdio HORVATH [facility] 10-09-1993 DTaP, unspecified formulation Emigdio HORVATH [facility] 10-09-1993 Hib, unspecified formulation Emigdio HORVATH [facility] 10-31-1992 Hib, unspecified formulation Emigdio HORVATH [facility] 10-31-1992 measles, mumps and rubella virus vaccine Emigdio HORVATH [facility] 03-28-1992 Hib, unspecified formulation Emigdio HORVATH [facility] 1990 Hib, unspecified formulation Emigdio HORVATH [facility] Payers Date Payer Category Payer Self-pay 2017 Worker's Compensation 1990 Unknown [id number] 2.16.84 [id number] 1990 Unknown [id number] 2.16.84 [id number] 1990 Unknown [id number] 2.16.8 [id number] 1990 Unknown [id number] 2.16.8 [id number] 1990 Unknown [id number] 2.16.8 [id number] 1990 Unknown [id number] 2.16.84 [id number] 1990 Unknown [id number] 2.16.84 [id number] 1989 Unknown [id number] 1959 Unknown [id number] Unknown [id number] 2.16.8 [id number] Social History Date Type Detail Facility Start: 04-12-2022 Tobacco smoking status Light tobacco smoker (finding) [facility] Start: 09-19-2023 Sex Assigned At Male F [facility] Start: 06-20-2023 Tobacco smoking status NHIS Never smoked tobacco [facility] Start: 06-20-2023 Tobacco use and exposure User of smokeless tobacco [facility] History of tobacco use Snuff User [facility] Start: 09-19-2023 History of Social function [facility] Start: 1990 Sex assigned at Not on file [facility] Start: 06-19-2023 Gender identity Identifies as male gender (finding) [facility] Functional Status Date Assessment Result Facility 07-16-2022 Functional Status N/A [facility] 04-12-2022 Functional Status N/A [facility] Hospital Discharge instructions 07-16-2022 Note Date & [...] provider. Document Revised: 07/07/2020 Document Reviewed: 07/07/2020 [employer] Patient Education 2022 [employer]. Follow Up Care 04/12/2022 13:33:46 With:YULIET CARR, Emigdio Edwards, URL Address: [facility] [address] [place] [address]- When: Unknown [facility] Hospital Discharge instructions 04-12-2022 Note [...] Follow these instructions at home: Medicines Take dxjd-pnj-umtzntl and prescription medicines only as told by [...] 08/20/2005 Document Revised: 01/13/2018 Document Reviewed: 04/29/2017 [employer] Patient Education [employer]. Follow Up Care 03/18/2022 15:42:03 With:YULIET CARR, Emigdio Edwards, URL Address: [facility] [address], [place] [place] [address]- When: Unknown [facility] Evaluation + Plan note Note Date & Type Note Facility Evaluation + Plan note Future Appointments Appointment Date:07/16/2022 08:00:00 AM Scheduled Provider:Emigdio HORVATH MD Location:[facility] Appointment Type:URO Office Visit [facility] Hospital course Narrative Note Date & Type Note Facility Hospital course Narrative No data available for this section [facility] Progress note Note Date & Type Note Facility Progress note No data available for this section [facility] Summary Purpose Family History No [...] section and content) DATE CREATED AUTHOR 08/19/2017 [facility] DATE CREATED AUTHOR AUTHOR'S ORGANIZ ATION 02/05/2022 [facility] DATE CREATED AUTHOR AUTHOR'S ORGANIZ ATION 07/25/2022 [facility] DATE CREATED AUTHOR AUTHOR'S ORGANIZ ATION 07/25/2022 [facility] DATE CREATED AUTHOR AUTHOR'S ORGANIZ ATION 09/21/2023 [facility] EPIC Patient Care team informatio n (unrecognized section and content) [employer] Relationship Specialty Start Date End Date Francisco Rodriguez MD [address] [place] [address] PCP - General Family Medicine 05/30/23 FOR RECORDS PERTAINING TO PATIENTS WHO ARE [...] BE BASED ON THE PRIMARY CLINICAL RECORDS. [facility]. provides no warranty or guarantee of the accuracy or completeness of information in this document.
--- NOTE | 2024-03-07 21:23 | XR_ITS ---
The [address] [address] Patient Name: LULY SANDHU MRN: [id number] date: 1990 Sex: M Assigned Patient Location: ER Current Patient Location: ER Accession/Order Number: [id number] Exam Date: 03/07/2024 21:35 Report Date: 03/07/2024 22:24 At the request of: CORNEL LOVETT Procedure: XR chest 1V EXAM: XR chest 1V HISTORY: chest pain COMPARISON: None. TECHNIQUE: Single radiographic view of the chest Devices: None. Lungs: Adequate symmetric aeration. No focal consolidation. Pleura: No pneumothorax. No significant pleural effusion. Heart and mediastinum: Normal cardiomediastinal contours. Bones / Chest wall: No evidence of displaced fracture. IMPRESSIONS: No acute cardiopulmonary findings. Electronically authenticated by: NICOLE DEE Date: 03/07/2024 22:24
--- NOTE | 2024-03-07 21:23 | ECG_ITS ---
The [facility] Test Date: 2024-03-07 Pat Name: LULY SANDHU Department: Room: - Gender: Male Internal Affairs Commander: : 1990 Requested By: DAVI RODRIGUEZ Order Number: [id number] Reading MD: DAVION ALANIZ Measurements Intervals Telferner Rate: 85 P: 18 MT: 134 QRS: 46 QRSD: 84 T: 56 QT: 332 QTc: 375 Interpretive Statements 1100 Sinus rhythm 9110 normal ECG Compared to ECG 07/21/2023 20:41:49 No significant changes Electronically Signed On 03-08-2024 6:43:56 EST by DAVION ALANIZ
--- NOTE | 2024-03-07 21:24 | ED_ITS ---
HPI - Chest Pain General Chief Complaint: Chest Pain Stated Complaint: high bp chest pains Time Seen by Provider: 03/07/24 21:10 Source: patient Mode of arrival: walk-in Limitations: no limitations History of Present Illness HPI narrative: 33-year-old male presents for chest pain. It started about half an hour while he was shoveling snow. There was no injury. It is in his left upper chest and goes into his left upper arm. He does not complain to me of shortness of breath and earlier it was sharp and now its dull. No back pain. Related Data Home Medications ?Medication ?Instructions ?Recorded ?Confirmed No Known Home Medications 07/21/23 03/07/24 Allergies Allergy/AdvReac Type Severity Reaction Status Date / Time No Known Drug Allergies Allergy Verified 03/07/24 21:14 Review of Systems ROS Narrative A ten point review of systems is negative except as noted above. PFSH PFSH Social History Little interest or pleasure in doing things: not at all Feeling down, depressed, or hopeless: not at all Exam Narrative Exam Narrative: Nurses note and vital signs reviewed and patient is not hypoxic. General: The patient appears uncomfortable and in no apparent distress. Skin: Warm, dry, no pallor noted. There is no rash noted. Head: Normocephalic, atraumatic Eye: Normal conjunctiva, no drainage Ears, Nose, Mouth, and Throat: oral mucosa is moist. Nares patent. Cardiovascular: Regular Rate and Rhythm; no chest wall crepitus Respiratory: Patient is in no distress, no accessory muscle use, lungs are clear to auscultation, no wheezing, rales or rhonchi Back: non-tender GI: Soft and nontender Musculoskeletal: The patient has no evidence of calf tenderness, no pitting edema, symmetrical pulses noted bilaterally Neurological: A&O, normal speech Psychiatric: Cooperative Constitutional Vital Signs, click to edit/add: Last Vital Signs Temp 98.4 F 03/07/24 21:11 Pulse 69 03/07/24 23:50 Resp 24 H 03/07/24 23:50 BP 129/73 03/07/24 23:31 Pulse Ox 96 03/07/24 23:50 O2 Del Method Room Air 03/07/24 21:11 Course Vital Signs Vital signs: Vital Signs Temperature 98.4 F 03/07/24 21:11 Pulse Rate 102 H 03/07/24 21:11 Respiratory Rate 18 03/07/24 21:11 Blood Pressure 153/95 H 03/07/24 21:11 Pulse Oximetry 100 03/07/24 21:11 Oxygen Delivery Method Room Air 03/07/24 21:11 Temperature 98.4 F 03/07/24 21:11 Pulse Rate 69 03/07/24 23:50 Respiratory Rate 24 H 03/07/24 23:50 Blood Pressure 129/73 03/07/24 23:31 Pulse Oximetry 96 03/07/24 23:50 Oxygen Delivery Method Room Air 03/07/24 21:11 MDM - Chest Pain MDM Narrative Medical decision making narrative: His workup here is negative including 2 sets of troponin. He feels much better now after receiving IV Toradol and he is able to be discharged home. Treatment diagnosis and follow-up were discussed with the patient. Differential Diagnosis Differential diagnosis: Likely fracture of rib, pneumothorax, unstable angina pectoris, atypical chest pain, st elevation myocardial infarction, costochondritis and chest pain Lab Data Attestation: I reviewed the patient's lab results. Labs: Lab Results 03/07/24 03/07/24 Range/Units 21:22 23:20 WBC 7.0 (4.0-11.0) 10^3/uL RBC 5.18 (4.70-6.10) 10^6/uL Hgb 15.2 (14.0-18.0) g/dL Hct 44.5 (42.0-54.0) % MCV 85.9 (80.0-94.0) fL MCH 29.3 (25.9-34.0) pg MCHC 34.2 (29.9-35.2) g/dL RDW 12.0 (11.0-15.0) % Plt Count 266 (150-450) 10^3/uL MPV 10.7 (9.5-13.5) fL Neut % (Auto) 40.9 L (43.0-75.0) % Lymph % (Auto) 47.2 (20.5-60.0) % [place] % (Auto) 9.6 (1.7-12.0) % Eos % (Auto) 1.6 (0.9-7.0) % Baso % (Auto) 0.3 (0.2-2.0) % Neut # (Auto) 2.8 (1.4-6.5) 10^3/uL Lymph # (Auto) 3.3 (1.2-3.8) 10^3/uL [place] # (Auto) 0.7 (0.3-0.8) 10^3/uL Eos # (Auto) 0.1 (0.0-0.7) 10^3/uL Baso # (Auto) 0.0 (0.0-0.1) 10^3/uL Abs Immat Gran (auto) 0.03 (0.00-0.03) 10^3/uL Imm/Tot Granulo (auto) 0.4 (0.0-0.5) % Sodium 141 (136-145) mmol/L Potassium 4.0 (3.5-5.1) mmol/L Chloride 107 (98-107) mmol/L Carbon Dioxide 21.8 (21.0-32.0) mmol/L Anion Gap 16.2 BUN 23.0 H (7.0-18.0) mg/dL Creatinine 1.47 H (0.70-1.30) mg/dL Est GFR ( Amer) >60 (>=60 mL/min/1.73m^2) Est GFR (Non-Af Amer) 56 L (>=60 mL/min/1.73m^2) BUN/Creatinine Ratio 15.6 Glucose 109 H (74-106) mg/dL Calcium 8.9 (8.5-10.1) mg/dL Troponin I High Sens <4.0 L 6.5 (4.0-76.1) pg/mL Imaging Data Chest x-ray: Radiologist's impression: Chest x-ray per radiologist shows no acute findings ECG Data Attestation: I personally reviewed and interpreted this ECG as follows: (EKG on my interpretation shows normal sinus rhythm with a rate of 85 and no acute change) Heart Score History: Slightly/Non-Suspicious ECG: Normal Age: <45 years Risk Factors: No Risk Factors Troponin: <Normal Limit Total Heart Score Recommendations & Risks:: 0 Discharge Plan Discharge Chief Complaint: Chest Pain Clinical Impression: Chest pain Patient Disposition: Home, Self-Care Time of Disposition Decision: 23:57 Condition: Good Mode of Transportation: Private Vehicle Prescriptions / Home Meds: No Action No Known Home Medications Print Language: Kiswahili Instructions: Chest Pain (ED), Chest Wall Pain (ED) Referrals: Francisco Muse MD [Primary Care Provider] - 1 week Discharge Date/Time: 03/08/24 00:06
[2024-03-07 21:31] LABS: Basophils Percent Auto 0.3 % (0.2-2.0); Eosinophils Absolute Auto 0.1 10^3/uL (0.0-0.7); Eosinophils Percent Auto 1.6 % (0.9-7.0); Hematocrit 44.5 % (42.0-54.0); Hemoglobin 15.2 g/dL (14.0-18.0); Immature Granulocytes Abs Auto 0.03 10^3/uL (0.00-0.03); Immature Granulocytes Pct Auto 0.4 % (0.0-0.5); Lymphocytes Absolute Auto 3.3 10^3/uL (1.2-3.8); Lymphocytes Percent Auto 47.2 % (20.5-60.0); Mean Corpuscular HGB Conc 34.2 g/dL (29.9-35.2); Mean Corpuscular Hemoglobin 29.3 pg (25.9-34.0); Mean Corpuscular Volume 85.9 fL (80.0-94.0); Mean Platelet Volume 10.7 fL (9.5-13.5); Monocytes Absolute Auto 0.7 10^3/uL (0.3-0.8); Monocytes Percent Auto 9.6 % (1.7-12.0); Neutrophils Absolute Auto 2.8 10^3/uL (1.4-6.5); Neutrophils Percent Auto 40.9 % (43.0-75.0); Platelet Count 266 10^3/uL (150-450); Red Blood Count 5.18 10^6/uL (4.70-6.10)
[2024-03-07 21:51] LABS: Anion Gap 16.2; BUN Creatinine Ratio 15.6; Calcium 8.9 mg/dL (8.5-10.1); Carbon Dioxide 21.8 mmol/L (21.0-32.0); Chloride 107 mmol/L (98-107); Estimated GFR (African America >60 (>=60 mL/min/1.73m^2); Estimated GFR (Non-African Ame 56 (>=60 mL/min/1.73m^2); Glucose 109 mg/dL (74-106); Sodium 141 mmol/L (136-145); Troponin I High Sensitivity <4.0 pg/mL (4.0-76.1)
[2024-03-07] MEDS: KETOROLAC TROMETHAMINE 30 MG/ML VIAL IVP (22:08)
[2024-03-07 23:44] LABS: Troponin I High Sensitivity 6.5 pg/mL (4.0-76.1)
--- NOTE | 2024-03-08 00:04 | PC.NURSE ---
i gave this patient verbal and written discharge orders and this patient voices to understanding these. at time of discharge this patient nor his voices no concerns and shows no signs of distress
== END 2024-03-08 00:06 | disposition home or self-care (01) ==
PROVIDERS: Emergency Provider Emergency Medicine; PCP Family Medicine
DX: R07.9 Chest pain, unspecified (principal)
CPT/HCPCS: 36415; 71045; 80048; 84484; 85025; 93005; 96374; 99285; J1885

== ENCOUNTER 2024-04-10 06:03 | Outpatient (OUT) | payer OTHER, SELFPAY ==
--- OUTSIDE RECORDS SUMMARY | 2024-04-10 06:05 | XMS_ITS | CCD ---
Author Organization [facility] InformFormerly [facility], [facility]–1983 [facility] Care Team Providers Care Segment Block Layer Name Role Phone KUMARALINGAM, MARINA Unavailable Unavailabl [...] Consulting Unavailable FRANCISCO RODRIGUEZ Primary Care Physician Emigdio HORVATH Attending Unavailable YULIET, Emigdio Edwards Attending Unavailable YULIET, Emigdio R Attending Unavailable Yuliet, Emigdio Admitting Unavailable Yuliet, Emigdio Attending Unavailable Nickolas Lim Primary Care Unavailable Francisco Rodriguez MD Primary Care Provider [phone] FRANCISCO RODRIGUEZ Attending Unavailable JENNIFER, FRANCISCO Attending Unavailable JENNIFER, FRANCISCO Attending Unavailable Allergies Allergy Classification Reported Allergen(s) Allergy Type Date of Onset Reaction(s) Facility (2 sources) No Known Medication Allergies; Translations: [No Known Medication Allergies] Propensity to adverse reactions to drug (disorder) [facility] Repository Medications Current Medications Medication Drug Class(es) Dates Sig (Normalized) Sig (Original) triamcinolone acetonide 5 mg/ml topical cream (4 sources) Corticosteroid Start: 09-19-2023 triamcinolone (Kenalog) 0.5 % cream Indications: Dermatitis, dyshidrotic Apply topically 3 (three) times a day 60 g 2 09/19/2023 Active Problems Active Problems Problem Classification Problem Date Documented Date Episodic/Chronic Contraceptive and procreative management (1 source) Contraception status; Translations: [Encounter for other general counseling and advice on contraception] Onset: 04-12-2022 Episodic Disorders of lipid metabolism (6 sources) Dyslipidemia; Translations: [Hyperlipidemia, unspecified] Onset: 03-20-2024 03-20-2024 Chronic Nausea and vomiting (1 source) Vomiting, unspecified; Translations: [VOMITING UNSPECIFIED] Onset: 12-11-2021 Episodic Nonspecific chest pain (13 sources) Chest pain, unspecified; Translations: [Other chest pain] Onset: 12-11-2021 Resolved: 06-20-2023 Episodic Other liver diseases (4 sources) Non-alcoholic fatty liver; Translations: [Fatty (change of) liver, not elsewhere classified] Onset: 09-19-2023 09-19-2023 Chronic Other nutritional; endocrine; and metabolic disorders (6 sources) Obesity caused by energy imbalance; Translations: [Class 1 obesity due to excess calories with serious comorbidity and body mass index (BMI) of 32.0 to 32.9 in adult] Onset: 03-20-2024 03-20-2024 Chronic Residual codes; unclassified (6 sources) FH: premature coronary heart disease; Translations: [Family history of ischemic heart disease and other diseases of the circulatory system] Onset: 03-20-2024 03-20-2024 Episodic Substance-related disorders (1 source) Nicotine dependence, cigarettes, uncomplicated; Translations: [NICOTINE DEPEND CIGARETTES UNCOMP] Onset: 12-11-2021 Chronic Unclassified (2 sources) Patient encounter status 04-12-2022 Unclassified (1 source) Encounter for sterilization; Translations: [Encounter for sterilization] Onset: 07-02-2022 Past or Other Problems Problem Classification Problem Date Documented Da te Episodic/Chronic Abdominal pain (4 sources) Right upper quadrant pain; Translations: [Right upper quadrant pain] Onset: 06-20-2023 Resolved: 09-19-2023 09-19-2023 Episodic Other skin disorders (4 sources) Vesicular eczema; Translations: [Dyshidrosis [pompholyx]] Onset: 09-19-2023 09-19-2023 Episodic Results Test Name Value Interpretation Reference Range Facility ALL CBC WITH AUTO DIFFon BASOPHILS ABSOLUTE AUTO 0.0 [facility] Basophils/100 WBC (Bld) 0.2 % 0.2 - 2.0 % [facility] Eosinophils/100 WBC (Bld) 1.2 % 0.9 - 7.0 % [facility] Erythrocyte distribution width (RBC) [Ratio] 12.4 % 11.0 - 15.0 % [facility] Hematocrit (Bld) [Volume fraction] 46.3 % 42.0 - 54.0 % [facility] Hemoglobin (Bld) [Mass/Vol] 15.2 g/dL 14.0 - 18.0 g/dL [facility] IMMATURE GRANULOCYTES ABS AUTO 0.03 [facility] Immature granulocytes/100 WBC (Bld) 0.5 % 0.0 - 0.5 % [facility] LYMPHOCYTES ABSOLUTE AUTO 2.1 [facility] Lymphocytes/100 WBC (Bld) 35.4 % 20.5 - 60.0 % [facility] MCH (RBC) [Entitic mass] 29.3 pg 25.9 - 34.0 pg [facility] MCHC (RBC) [Mass/Vol] 32.8 g/dL 29.9 - 35.2 g/dL [facility] MCV (RBC) [Entitic vol] 89.4 fL 80.0 - 94.0 fL [facility] MONOCYTES ABSOLUTE AUTO 0.4 [facility] Monocytes/100 WBC (Bld) 7.4 % 1.7 - 12.0 % [facility] NEUTROPHILS ABSOLUTE AUTO 3.2 [facility] Neutrophils/100 WBC (Bld) 55.3 % 43.0 - 75.0 % [facility] Platelet mean volume (Bld) [Entitic vol] 11.1 fL 9.5 - 13.5 fL [facility] TBH EO # 0.1 [facility]H PLT [address] [facility] RBC 5.[address] [facility] WBC 5.8 [facility] Ambulatory Visit Summaryon 0 07-16-2022 Ambulatory Visit Summary PHOEBELULY S :1990 Visit Date:07/16/2022 Ambulatory Visit Instructions Your Diagnosis Status post vasectomy Your Care Team Attending Physician - YULIET CARR, Emigdio Edwards Primary Care Physician - JENNIFER CARR, FRANCISCO Procedures Performed Vasectomy (07/02/2022). Discharge Vitals Heart Rate (Peripheral) 79 Respiratory Rate 16 Blood Pressure 130/86 Height 187 cm Height 74 in Weight 114 kg Weight 250.8 lb BMI 32.6 What to do next You Need to Schedule the Following Appointments Follow Up with Emigdio HORVATH MD, URL When: Where: [facility] [address] [place] [address]- Allergies No Known Medication Allergies Problems Ongoing [...] type cont (more content not included)... [facility] Patient Educationon 07-17-19 Patient Education Obstetrics [...] man ca (more content not included)... Normal [facility] Urology Office/Clinic Noteon 06-02-2023 Urology Office/Clinic Note History of Present Illness [...] [facility] [address], [place] [address]- Additional Instructions: PRN Patient Education Contraception Choices Miki, Melissa [place], personally scribed for Dr. Horvath [...] Recorded Hib, unspecified formulation 1990 Recorded Normal [facility] Comment on above: Result Comment: Elec tronically Signed By: YULIET CARR, Emigdio Edwards\.br\Date and Time Signed: 07/16/22 08:26 EDT\.br\Electronically Co-Signed By: Melissa Beaulieu\.br\Date and Time Co-Signed: 07/16/22 08:10 EDT Pathology Noteon 07-08-2022 Pathology Note [id number]:127 [facility] Operative Reporton Operative Report [id number]:127 [facility] 07-02-2022 L ------ Specimen: [id number] Received: 07/02/22 Status: DEREK Middleton Num: [id number] Spec Type: Surgical Subm Dr: Emigdio Horvath MD Tissues: A VAS DEFERENS - sterilization (LT VAS DEF) B VAS DEFERENS - sterilization (RT VAS DEF) Procedures: HE/2, Gross/Micro L2/2 Age/ Patient Sex Location Account Attending Physician Luly Sandhu 32/M [place] [id number] Emigdio Horvath MD SPEC NUM: [id number] RECD: 07/02/22 STATUS: DEREK KANE NUM: [id number] CHING: 07/02/22- SUBM DR: Emigdio Horvath MD ENTERED: 07/02/[address] [facility] [address]: Teddy [facility] SPEC TYPE: Surgical DEPT: S ENTERED BY: [id number] RECV BY: [id number] ORDERED: HE/2, Gross/Micro L2/2 ORDERED: HE/2, Gross/Micro [...] submitted in one cassette labeled B1. Specimen: [id number] Received: 07/02/22 Status: VINCENZOCindy Kane Num: [id number] Spec Type: Surgical Subm Dr: Emigdio Horvath MD Tissues: A VAS DEFERENS - sterilization (LT VAS DEF) B VAS DEFERENS - sterilization (RT VAS DEF) Procedures: DEVIN/Nelia Panda/Rohit L2/2 Patient: Luly Sandhu [id number] (Continued) Specimen: [id number] Received: 07/02/22 (Continued) Signed (signature on file) Sixto Obregon MD 07/05/22 0940 Specimen: [id number] Received: 07/02/22 Status: DEREK Middleton Num: [id number] Spec Type: Surgical Subm Dr: Emigdio Horvath MD Tissues: A VAS DEFERENS - sterilization (LT VAS DEF) B VAS DEFERENS - sterilization (RT VAS DEF) Procedures: HE/Farzad, Gross/Micro L2/2 Patient: Luly Sandhu [id number] (Continued) Specimen: [id number] Received: 07/02/22 (Continued) Microscopic Description A. One H E slide reviewed. The microscopic examination confirms the diagnosis. B. One H E slide reviewed. The microscopic examination confirms the diagnosis. CPT Codes 24364?2 Specimen: [id number] Received: 07/02/22 Status: DEREK Renteriaabdelrahman Num: [id number] Spec Type: Surgical Subm Dr: Emigdio Horvath MD Tissues: A VAS DEFERENS - sterilization (LT VAS DEF) B VAS DEFERENS - sterilization (RT VAS DEF) Procedures: Nelia MARTINEZ/Rohit L2/2 Patient: Luly Sandhu [id number] (Continued) Signed (signature on file) Sixto Obregon MD 07/05/22 0940 [facility]son 04-14-2022 Forms [id number]:127 [facility] Consent for Procedure/Surger yon 04-13-2022 Consent for Procedure/Surgery [id number]#[id number]:127 [facility] Patient Educationon 04-12-19 Patient Education Urology [...] these instructions at home: Medicines ? Take teea-gql-aognujf and prescription medicines only as told by [...] 08/20/2005 Document Revised: 01/13/2018 Document Reviewed: 04/29/2017 Elsevier Patient Education ? 2019 [employer] Normal [facility] Urology Office/Clinic Noteon 04-12-2022 Urology Office/Clinic Note [...] Local anesthesia. Follow-up With When Contact Information Emigdio HORVATH MD, URL [facility] [address] [place] [address]- Additional Instructions: schedule vasectomy Patient Education Vasectomy, [...] Recorded Hib, unspecified formulation 1990 Recorded [facility] Comment on above: Result Comment: Elec tronically Signed By: Emigdio HORVATH MD\.br\Date and Time Signed: 04/12/22 13:28 EST\.br\Electronically Co-Signed By: Melissa Beaulieu\.br\Date and Time Co-Signed: 04/12/22 13:21 EST [place] STRESS/REST MULTIon 01-27 NM STRESS/REST MULTI Patient: LULY SANDHU Exam Date: 01/27/2022 : 1990 Gender:M Ordering : DR FRANCISCO RODRIGUEZ . Admission #: [id number] Family : Order #: [id number] CLICK HERE TO VIEW EXAM RADIOLOGY REPORT [...] M.D. on 01/27/2022 at 16:00 Normal [facility] CARDIAC IVETT 3-6on 2 CK [Catalytic activity/Vol] 125 U/L Normal 39-308 [facility] Comment on above: Performed By: #### C MREP #### [facility] [address] [address] [address] Coby Singleton CK.MB [Mass/Vol] 0.61 ng/mL Normal <=3.60 [facility] Comment on above: Performed By: #### C MREP #### [facility] [address] [place] [address] Dr. Coby Singleton HSTROP 4.9 pg/mL Normal 4.0-76.1 [facility] Comment on above: Result Comment: CUT- OFF POINTS HAVE BEEN ESTABLISHED BASED ON THE FOURTH UNIVERSAL DEFINITIONS OF MYOCARDIAL INFARCTION. THE UPPER REFERENCE LIMIT (URL) OF TROPONIN, DEFINED THE 99TH PERCENTILE OF cTnI DISTRIBUTION IN A REFERENCE POPULATION, HAS BEEN CONFIRMED THE DECISION THRESHOLD FOR CO DIAGNOSIS. Performed By: #### C MREP #### [facility] [address] [place] [address] Dr. Coby Singleton CARDIAC IVETT ADMITon 022 CK [Catalytic activity/Vol] 132 U/L Normal 39-308 [facility] Comment on above: Performed By: #### C MELY, BMP #### [facility] [address] [place] [address] Dr. Coby Singleton CK.MB [Mass/Vol] 0.76 ng/mL Normal <=3.60 [facility] Comment on above: Performed By: #### C MELY, BMP #### [facility] [address] [place] [address] Dr. Coby Singleton HSTROP 4.8 pg/mL Normal 4.0-76.1 [facility] Comment on above: Result Comment: CUT- OFF POINTS HAVE BEEN ESTABLISHED BASED ON THE FOURTH UNIVERSAL DEFINITIONS OF MYOCARDIAL INFARCTION. THE UPPER REFERENCE LIMIT (URL) OF TROPONIN, DEFINED THE 99TH PERCENTILE OF cTnI DISTRIBUTION IN A REFERENCE POPULATION, HAS BEEN CONFIRMED THE DECISION THRESHOLD FOR CO DIAGNOSIS. Performed By: #### C MELY, BMP #### [facility] [address] [place] [address] Dr. Coby Singleton EDILBERTO 50 ng/mL Normal 16-96 [facility] Comment on above: Performed By: #### C MELY, BMP #### [facility] [address] [place] [address] Dr. Coby Singleton CBC AUTO DIFFon 12-09-2021 BASO # 0.0 103/ul Normal 0.0-0.1 [facility] Comment on above: Performed By: #### C BC #### [facility] [address] [place] [address] Dr. Coby Singleton Basophils/100 WBC (Bld) 0.4 % Normal 0.2-2.0 [facility] Comment on above: Performed By: #### C BC #### [facility] [address] [place] [address] Dr. Coby Singleton EO # 0.1 103/ul Normal 0.0-0.7 [facility] Comment on above: Performed By: #### C BC #### [facility] [address] [place] [address] Dr. Coby Singleton Eosinophils/100 WBC (Bld) 1.6 % Normal 0.9-7.0 [facility] Comment on above: Performed By: #### C BC #### [facility] [address] [place] [address] Dr. Coby Singleton Erythrocyte distribution width (RBC) [Ratio] 12.2 % Normal 11.0-15.0 [facility] Comment on above: Performed By: #### C BC #### [facility] [address] [place] [address] Dr. Coby Singleton Hematocrit (Bld) [Volume fraction] 42.8 % Normal 42.0-54.0 [facility] Comment on above: Performed By: #### C BC #### [facility] [address] [place] [address] Dr. Coby Singleton Hemoglobin (Bld) [Mass/Vol] 14.7 g/dL Normal 14.0-18.0 [facility] Comment on above: Performed By: #### C BC #### [facility] [address] [place] [address] Dr. Coby Singleton IG # 0.03 10e3/ul Normal 0.00-0.03 [facility] Comment on above: Performed By: #### C BC #### [facility] [address] [place] [address] Dr. Coby Singleton IG % 0.4 % Normal 0.0-0.5 [facility] Comment on above: Performed By: #### C BC #### [facility] [address] [place] [address] Dr. Coby Singleton LYMPH # 2.4 103/ul Normal 1.2-3.8 [facility] Comment on above: Performed By: #### C BC #### [facility] [address] [place] [address] Dr. Coby Singleton Lymphocytes/100 WBC (Bld) 29.9 % Normal 20.5-60.0 [facility] Comment on above: Performed By: #### C BC #### [facility] [address] [place] [address] Dr. Coby Singleton MANUAL DIFF REQ NO Normal [facility] Comment on above: Performed By: #### C BC #### [facility] [address] [place] [address] Dr. Coby Singleton MCH (RBC) [Entitic mass] 29.5 pg Normal 25.9-34.0 [facility] Comment on above: Performed By: #### C BC #### [facility] [address] [place] [address] Dr. Coby Singleton MCHC (RBC) [Mass/Vol] 34.3 g/dL Normal 29.9-35.2 [facility] Comment on above: Performed By: #### C BC #### [facility] [address] [place] [address] Dr. Coby Singleton MCV (RBC) [Entitic vol] 85.8 fL Normal 80.0-94.0 [facility] Comment on above: Performed By: #### C BC #### [facility] [address] [place] [address] Dr. Coby Singleton MONO # 0.6 103/ul Normal 0.3-0.8 [facility] Comment on above: Performed By: #### C BC #### [facility] [address] [place] [address] Dr. Coby Singleton Monocytes/100 WBC (Bld) 7.6 % Normal 1.7-12.0 [facility] Comment on above: Performed By: #### C BC #### [facility] [address] [place] [address] Dr. Coby Singleton NEUT # 4.7 103/ul Normal 1.4-6.5 [facility] Comment on above: Performed By: #### C BC #### [facility] [address] [place] [address] Dr. Coby Singleton Neutrophils/100 WBC (Bld) 60.1 % Normal 43.0-75.0 [facility] Comment on above: Performed By: #### C BC #### [facility] [address] [place] [address] Dr. Coby Singleton Platelet mean volume (Bld) [Entitic vol] 10.5 fL Normal 9.5-13.5 [facility] Comment on above: Performed By: #### C BC #### [facility] [address] [place] [address] Dr. Coby Singleton PLT 267 103/ul Normal 150-450 [facility] Comment on above: Performed By: #### C BC #### [facility] [address] [place] [address] Dr. Coby Singleton RBC 4.99 106/ul Normal 4.70-6.10 [facility] Comment on above: Performed By: #### C BC #### [facility] [address] [place] [address] Dr. Coby Singleton WBC 7.9 103/ul Normal 4.0-11.0 [facility] Comment on above: Performed By: #### C BC #### [facility] [address] [place] [address] Dr. Coby Singleton D-DIMERon 12-09-2021 D-DIMER 0.19 mg/L FEU Normal <=0.59 [facility] Comment on above: Performed By: #### D DIM #### [facility] [address] [place] [address] Dr. Coby Singleton D-DIMER COMMENTS SEE BELOW Normal [facility] Comment on above: Result Comment: [...] hospitalization. Performed By: #### D DIM #### [facility] [address] [place] [address] Dr. Coby Singleton PROF CHEM 8 (BAS METB)on Anion gap [Moles/Vol] 8.5 mmol/L Normal [facility] Comment on above: Performed By: #### C MADM, BMP #### [facility] [address] [place] [address] Dr. Coby Singleton Calcium [Mass/Vol] 8.7 mg/dL Normal 8.5-10.1 [facility] Comment on above: Performed By: #### C MADM, BMP #### [facility] [address] [place] [address] Dr. Coby Singleton Chloride [Moles/Vol] 109 mmol/L Critically high 98-107 [facility] Comment on above: Performed By: #### C MADM, BMP #### [facility] [address] [place] [address] Dr. Coby Singleton CO2 [Moles/Vol] 23.4 mmol/L Normal 21.0-32.0 [facility] Comment on above: Performed By: #### C MADM, BMP #### [facility] [address] [place] [address] Dr. Coby Singleton Creatinine [Mass/Vol] 1.14 mg/dL Normal 0.70-1.30 [facility] Comment on above: Performed By: #### C MADM, BMP #### [facility] [address] [place] [address] Dr. Coby Singleton EGFR-AF PUERTO RICAN >60 Normal >=60 [facility] Comment on above: Performed By: #### C MADM, BMP #### [facility] [address] [place] [address] Dr. Coby Singleton EGFR-NON AF PUERTO RICAN >60 Normal >=60 [facility] Comment on above: Performed By: #### C MADM, BMP #### [facility] [address] [address] [address] Coby Singleton Glucose [Mass/Vol] 100 mg/dL Normal 74-106 [facility] Comment on above: Performed By: #### C MADM, BMP #### [facility] [address] [address] [address] Coby Singleton Potassium [Moles/Vol] 4.9 mmol/L Normal 3.5-5.1 [facility] Comment on above: Performed By: #### C MADM, BMP #### [facility] [address] [address] [address] Coby Singleton Sodium [Moles/Vol] 136 mmol/L Normal 136-145 [facility] Comment on above: Performed By: #### C SCOTTYM, BMP #### [facility] [address] [address] [address] Coby Singleton Urea nitrogen [Mass/Vol] 17.0 mg/dL Normal 7.0-18.0 [facility] Comment on above: Performed By: #### C MELY, BMP #### [facility] [address] [address] [address] Coby Singleton Urea nitrogen/Creatinine [Mass ratio] 14.9 mg/mg Normal [facility] Comment on above: Performed By: #### C MELY, BMP #### [facility] [address] [address] [address] Coby Singleton XR CHEST 2 Von 12-09-2021 XR CHEST 2 V EXAM: XR CHEST 2 V COMPARISON: None available. CLINICAL INDICATION: Chest pain. FINDINGS: The cardiomediastinal silhouette is within normal limits. No focal consolidation. No pleural effusion. No pneumothorax. No evidence of acute osseous abnormality. IMPRESSION: No acute findings. Electronically authenticated by: JENIFER BARNARD Date: 2021-12-09 20:51 Normal [facility] .eGFRon 08-17-2017 eGFR (non-black) mL/min/{1.73_m2} Normal >=60 [facility] Comment on above: Result Comment: Resu [...] medication dosing. Performed By: #### C BC ####[place] [address] Result Comment: Resu lt = 0-14.9 mL/min/1.73 m2 Kidney failure or DialysisResult = 15-29 mL/min/1.73 m2 Severe decrease in GFRResult = 30-59 mL/min/1.73 m2 Moderate decrease in GFRResult >= 60 mL/min/1.73 m2 Normal or increased GFR CBCon 08-17-2017 Erythrocyte distribution width Auto Ratio (RBC) 13.7 % Normal 11.6-14.8 [facility] Comment on above: Performed By: #### C BC ####[address] [id number] Erythrocytes (RBC) 4.72 x10*6/mcL Normal 4.30-5.80 [facility] Comment on above: Performed By: #### C BC ####[address] [id number] Hematocrit (HCT) 42.5 % Normal 41.0-53.0 [facility] Comment on above: Performed By: #### C BC ####[address] [address] Hemoglobin mass conc (Bld) 14.7 g/dL Normal 13.5-17.5 [facility] Comment on above: Performed By: #### C BC ####[address] [id number] MCH 31.1 pg Normal 27.0-35.0 [facility] Comment on above: Performed By: #### C BC ####[address] [address] MCHC mass conc (RBC) 34.5 % Normal 31.0-37.0 [facility] Comment on above: Performed By: #### C BC ####[address] [address] MCV 90.0 fL Normal 80.0-100.0 [facility] Comment on above: Performed By: #### C BC ####[address] [address] Platelet mean volume (PMV) 9.2 fL Normal 6.7-10.6 [facility] Comment on above: Performed By: #### C BC ####[address] [address] Platelets 222 x10*3/mcL Normal 150-350 [facility] Comment on above: Performed By: #### C BC ####[address] [address] WBC (Leukocytes) 6.9 x10*3/mcL Normal 4.5-11.0 [facility] Comment on above: Performed By: #### C BC ####[address] [address] CMPon 08-17-2017 Alanine aminotransferase (ALT) 13 U/L Low 17-63 [facility] Comment on above: Performed By: #### C BC ####[address] [address] Albumin 3.6 g/dL Normal 3.2-4.9 [facility] Comment on above: Performed By: #### C BC ####[address] [address] Albumin/Globulin Ratio 1.3 {ratio} Normal 1.1-2.2 [facility] Comment on above: Performed By: #### C BC ####[address] [address] Alk Phos 90 IU/L Normal 32-91 [facility] Comment on above: Performed By: #### C BC ####[address] [address] Anion gap 10 mmol/L Normal 7-17 [facility] Comment on above: Performed By: #### C BC ####[address] [address] Aspartate aminotransferase (AST) 19 U/L Normal 15-41 [facility] Comment on above: Performed By: #### C BC ####[address] [address] Bili Total 0.7 mg/dL Normal 0.3-1.2 [facility] Comment on above: Performed By: #### C BC ####[address] [address] BUN/Creatinine Ratio 16.5 mg/mg Normal 15.0-25.0 [facility] Comment on above: Performed By: #### C BC ####[address] [address] Calcium 8.6 mg/dL Normal 8.5-10.3 [facility] Comment on above: Performed By: #### C BC ####[address] [address] Chloride 110 mmol/L Normal 98-110 [facility] Comment on above: Performed By: #### C BC ####[address] [address] CO2 23 mmol/L Normal 22-32 [facility] Comment on above: Performed By: #### C BC ####[address] [address] Creatinine 0.91 mg/dL Normal 0.61-1.24 [facility] Comment on above: Performed By: #### C BC ####[address] [address] Glucose mass conc 97 mg/dL Normal 74-118 [facility] Comment on above: Performed By: #### C BC ####[address] [address] [place] [address] Potassium molar conc 4.7 mmol/L Normal 3.4-4.8 [facility] Comment on above: Performed By: #### C BC ####[id number] [place] [address] Protein 6.3 g/dL Low 6.5-8.1 [facility] Comment on above: Performed By: #### C BC ####[address] [address] Sodium 138 mmol/L Normal 133-142 [facility] Comment on above: Performed By: #### C BC ####[address] [place] [address] Urea nitrogen 15 mg/dL Normal 8-26 [facility] Comment on above: Performed By: #### C BC ####[address] [address] Discharge Summaryon 08-18-19 Discharge Summary Admission Informatio n Date of Arrival: 08/16/2017 Date of Discharge: 08/17/2017 Admitting Dx: Electric injury in an adult, palpitations Discharge Dx: electric injury in an adult, palpitations Consulting Providers: None History of Present Illness This is a 27-year-old male patient who was at work at [employer] and took a shock from 1000 V [...] Dose: 08/16/17 12:06:00 EDT, Dispense From Location: [facility] acetaminophen, 650 mg, Oral, Tab, q6hr, PRN mild pain [1-3 on pain scale], First Dose: 08/16/17 12:06:00 EDT, Dispense From Location: [facility] enoxaparin, 40 mg, Subcutaneous, Injection, Daily, First Dose: 08/17/17 9:00:00 EDT, Dispense From Location: [facility] ondansetron, 4 mg, IV Push, Injection, q4hr, PRN nausea, First Dose: 08/16/17 12:06:00 EDT, Dispense From Location: [facility] sodium chloride, 10 mL, IV Push, Injection, As Indicated, PRN flush, First Dose: 08/16/17 12:06:00 EDT, Dispense From Location: [facility] Activity Restrictions Alarm Limit Settings AMI [...] Hale 08/16/2017 09:18 EDTElectronically signed by W carmen-Osmankelley PICKERINGТатьяна Greta 08/17/17 08:48 EDT Normal [facility] Inpatient Clinical Summaryon 08-17-2017 Inpatient Clinical Summary [facility] [place] [address] [address]Wygtdzbg SummaryPerson InformationName: Luly Sandhu Age: 27 Years : 1990Sex: Male PCP: Nickolas Lim DOMarital Status:Single Phone: PCP: [phone]:White Ethnicity:Not or Language:EnglishMRN: [id number] Visit Id: Reason:Tachycardia; Tachycardia Speciality: Acuity:Enc Type: Observation Med Service: CardiologyArrival:08/16/2017 08:47:00 Discharge: Dispo Type: Place in ObservationAddress:[address] [place] [address]Ofapkzbfs: 1:Electrical injury in adult; 2:PalpitationsDischarged To:Home Treatments:Devices/Equipme [...] range between ( 27.2 and 40.8 ) Arroyo Auto: 9.3 % -- Normal range between ( 4.7 and 13.9 ) Eos Auto: 2.0 % -- Normal range between ( 0.0 and 6.1 ) Basophil Auto: 0.3 % -- Normal range between ( 0.0 and 1.2 ) Baso Absolute: 0.0 x10 Lymph Absolute: 2.6 x10 Arroyo Absolute: 0.7 x10 Neutro Absolute: 4.2 x10 [...] PradeepConsulting Physician:Referring Physician:Follow up:With: Address: When:Nickolas Lim [address] [place] [address] [phone] Business (1) Within 1 weekComments:Call for followup appointment Normal [facility] Magnesiumon 08-17-2017 Magnesium 2.0 mg/dL Normal 1.7-2.4 [facility] Comment on above: Performed By: #### C BC ####[id number] Phosphoruson 08-17-2017 Phosphate 3.6 mg/dL Normal 2.5-4.6 [facility] Comment on above: Performed By: #### C BC ####[id number] .eGFRon 08-16-2017 eGFR (non-black) mL/min/{1.73_m2} Normal >=60 [facility] Comment on above: Result Comment: Resu [...] medication dosing. Performed By: #### E GFR ####[address] [address] Result Comment: Resu lt = 0-14.9 mL/min/1.73 m2 Kidney failure or DialysisResult = 15-29 mL/min/1.73 m2 Severe decrease in GFRResult = 30-59 mL/min/1.73 m2 Moderate decrease in GFRResult >= 60 mL/min/1.73 m2 Normal or increased GFR AMI Initon 08-16-2017 Initial Myoglobin 15.0 ng/mL Low 17.4-105.7 [facility] Comment on above: Performed By: #### A MI1 ####[id number] Troponin I.cardiac mass conc ng/mL Normal 0.00-0.03 [facility] Comment on above: Result Comment: An i ncreased Troponin-I value, in the absence of myocardial ischemia, may indicate other etiologies of cardiac damage. Performed By: #### A MI1 ####[id number] 08-16-2017 12 Hour CPK 110 ng/mL Normal 49-397 [facility] Comment on above: Performed By: #### . Automated Diff ####[address] [address] Troponin I.cardiac mass conc ng/mL Normal 0.00-0.03 [facility] Comment on above: Result Comment: An i ncreased Troponin-I value, in the absence of myocardial ischemia, may indicate other etiologies of cardiac damage. Performed By: #### . Automated Diff ####[address] [address] [id number] 08-16-2017 2 Hour Myoglobin 19.0 ng/mL Normal 17.4-105.7 [facility] Comment on above: Performed By: #### . Automated Diff ####[address] [address] Troponin I.cardiac mass conc ng/mL Normal 0.00-0.03 [facility] Comment on above: Result Comment: An i ncreased Troponin-I value, in the absence of myocardial ischemia, may indicate other etiologies of cardiac damage. Performed By: #### . Automated Diff ####[id number] 08-16-2017 6 Hour Myoglobin 18.0 ng/mL Normal 17.4-105.7 [facility] Comment on above: Performed By: #### . Automated Diff ####[id number] Troponin I.cardiac mass conc ng/mL Normal 0.00-0.03 [facility] Comment on above: Result Comment: An i ncreased Troponin-I value, in the absence of myocardial ischemia, may indicate other etiologies of cardiac damage. Performed By: #### . Automated Diff ####[id number] CBC w/ Diffon 08-16-2017 Erythrocyte distribution width Auto Ratio (RBC) 13.3 % Normal 11.6-14.8 [facility] Comment on above: Performed By: #### C BC ####[id number] Erythrocytes (RBC) 4.92 x10*6/mcL Normal 4.30-5.80 [facility] Comment on above: Performed By: #### C BC ####[id number] Hematocrit (HCT) 44.1 % Normal 41.0-53.0 [facility] Comment on above: Performed By: #### C BC ####[id number] Hemoglobin mass conc (Bld) 15.1 g/dL Normal 13.5-17.5 [facility] Comment on above: Performed By: #### C BC ####[id number] MCH 30.6 pg Normal 27.0-35.0 [facility] Comment on above: Performed By: #### C BC ####[address] [address] MCHC mass conc (RBC) 34.2 % Normal 31.0-37.0 [facility] Comment on above: Performed By: #### C BC ####[address] [address] MCV 89.7 fL Normal 80.0-100.0 [facility] Comment on above: Performed By: #### C BC ####[address] [address] Platelet mean volume (PMV) 9.1 fL Normal 6.7-10.6 [facility] Comment on above: Performed By: #### C BC ####[address] [address] Platelets 232 x10*3/mcL Normal 150-350 [facility] Comment on above: Performed By: #### C BC ####[address] [address] WBC (Leukocytes) 7.7 x10*3/mcL Normal 4.5-11.0 [facility] Comment on above: Performed By: #### C BC ####[address] [address] CMPon 08-16-2017 Alanine aminotransferase (ALT) 16 U/L Low 17-63 [facility] Comment on above: Performed By: #### C OMP ####[address] [address] Albumin 4.0 g/dL Normal 3.2-4.9 [facility] Comment on above: Performed By: #### C OMP ####[id number] Albumin/Globulin Ratio 1.3 {ratio} Normal 1.1-2.2 [facility] Comment on above: Performed By: #### C OMP ####[address] [address] Alk Phos 104 IU/L High 32-91 [facility] Comment on above: Performed By: #### C OMP ####[address] [address] Anion gap 10 mmol/L Normal 7-17 [facility] Comment on above: Performed By: #### C OMP ####[address] [address] Aspartate aminotransferase (AST) 22 U/L Normal 15-41 [facility] Comment on above: Performed By: #### C OMP ####[address] [address] Bili Total 0.7 mg/dL Normal 0.3-1.2 [facility] Comment on above: Performed By: #### C OMP ####[address] [address] BUN/Creatinine Ratio 18.0 mg/mg Normal 15.0-25.0 [facility] Comment on above: Performed By: #### C OMP ####[address] [address] Calcium 8.9 mg/dL Normal 8.5-10.3 [facility] Comment on above: Performed By: #### C OMP ####[address] [address] Chloride 110 mmol/L Normal 98-110 [facility] Comment on above: Performed By: #### C OMP ####[address] [address] CO2 22 mmol/L Normal 22-32 [facility] Comment on above: Performed By: #### C OMP ####[address] [address] Creatinine 1.00 mg/dL Normal 0.61-1.24 [facility] Comment on above: Performed By: #### C OMP ####[address] [address] Glucose mass conc 96 mg/dL Normal 74-118 [facility] Comment on above: Performed By: #### C OMP ####[address] [address] Potassium molar conc 4.5 mmol/L Normal 3.4-4.8 [facility] Comment on above: Performed By: #### C OMP ####[address] [address] Protein 7.1 g/dL Normal 6.5-8.1 [facility] Comment on above: Performed By: #### C OMP ####[address] [address] Sodium 138 mmol/L Normal 133-142 [facility] Comment on above: Performed By: #### C OMP ####[id number] Urea nitrogen 18 mg/dL Normal 8-26 [facility] Comment on above: Performed By: #### C OMP ####[address] [address] CPKon 08-16-2017 Creatine Phosphokinase 142 IU/L Normal 49-397 [facility] Comment on above: Performed By: #### C P ####[address] [address] Cardiac Echocardiogram Trans thoracicon 08-16-2017 Cardiac Echocardiogram Transthoracic TRANSTHORACIC ECHOCARDIOGRAMStudy Date/Time: Aug 16 2017 12:35PMBP: 134 / 82HR: 65 bpmHT/WT: 188 cm (74 in) / 95.3 kg (209.6 lb)BSA/BMI: 2.24 m2 / 27 kg/z2ZZCYRJOW PROVIDER: Татьяна Larry PHYSICIAN: Nay Glaser MDCARDIAC WIND ENERGY ENGINEER: Nely Hector ----INDICATIONS: >1000 volts electrical shock. --------CONCLUSIONSSUMMARY :1. Left ventricle: Systolic function is normal. The estimated ejection fraction is 55-60%.2. Normal left ventricular function.3. Normal right ventricular function.4. Normal chamber dimensions.5. Normal valve structure with no significant stenosis or regurgitation. STUDY DATA: M-mode, complete 2D, complete spectral Doppler, and color Doppler. Study status: Routine. [facility] status: [facility] Procedure: Transthoracic echocardiography was performed. [...] MD08/16/2017 16:04 Final Dictated by: Nay Glaser MDeDictated DT/TM: 08/16/2017 4:04 pmSigned by: Nay Glaser MDed (Electronic Signature): 08/16/2017 4:04 pm(If Report Is Signed, Electronically Signed in Other Vendor System) Normal [facility] Diff Autoon 08-16-2017 Baso Absolute 0.0 x10*3/mcL Normal 0.0-0.2 [facility] Comment on above: Performed By: #### . Automated Diff ####[address] [address] Basophils/100 WBC Auto (Bld) 0.3 % Normal 0.0-1.2 [facility] Comment on above: Performed By: #### . Automated Diff ####[address] [address] Eos Absolute 0.2 x10*3/mcL Normal 0.0-0.4 [facility] Comment on above: Performed By: #### . Automated Diff ####[address] [address] Eosinophils/100 leukocytes 2.0 % Normal 0.0-6.1 [facility] Comment on above: Performed By: #### . Automated Diff ####[address] [address] Lymphocytes 2.6 x10*3/mcL Normal 1.0-4.8 [facility] Comment on above: Performed By: #### . Automated Diff ####[address] [address] Lymphocytes/100 leukocytes 33.9 % Normal 27.2-40.8 [facility] Comment on above: Performed By: #### . Automated Diff ####[id number] Arroyo Absolute 0.7 x10*3/mcL Normal 0.3-1.1 [facility] Comment on above: Performed By: #### . Automated Diff ####[address] [address] Monocytes/100 leukocytes 9.3 % Normal 4.7-13.9 [facility] Comment on above: Performed By: #### . Automated Diff ####[id number] Neutro Absolute 4.2 x10*3/mcL Normal 1.8-7.7 [facility] Comment on above: Performed By: #### . Automated Diff ####[id number] Neutro Auto 54.5 % Normal 47.2-70.8 [facility] Comment on above: Performed By: #### . Automated Diff ####[id number] ED Clinical Summaryon 2017 ED Clinical Summary (Inserted Image. Debo ble to display) [place] [id number] ED Clinical SummaryPerson InformationName: PhoebeLluy [facility] Age: 27 Years : 1990Sex: Male PCP: Nickolas Lim DO Status:Single Phone:Race:White Ethnicity:Not or Language:EnglishMRN: [id number] Reason:Tachycardia; Tachycardia Acuity: 2Enc Type: Observation Med Service: Emergency MedicineArrival:08/16/2017 08:47:00 Discharge: LOS: 000 08:36Checkin:08/16/2017 08:47:00 Checkout: 08/16/2017 17:23:44 Dispo Type: Place in ObservationAddress:[address] [place] [address] Provider Notes: History of Present IllnessPatient presents [...] range between ( 27.2 and 40.8 ) Arroyo Auto: 9.3 % -- Normal range between [...] range between ( 41.0 and 53.0 ) Arroyo Absolute: 0.7 x10 MCH: 30.6 pg -- [...] EDT, Coronary Care Unit, 08/16/17 10:02:00 EDT, Marina Moe MD, Kumaralingam MD, MarinaRequest for Admit 08/16/17 10:03:00 EDT, 08/16/17 10:02:00 EDT, Coronary Care UnitPatient Education Information:[facility] Poison Help line: .[facility] Hotline: [place] Tobacco Quit Line: [place], [place]) [address]: [phone], [place]) [address]: [phone] District Hospital [address], [place]: [phone] [facility] ED Note-Nursingon 08-16-2017 ED Note-Nursing Pt updated about neo t time for CCU room assignment. Pt denies needs at this time. Electronically signed by Gladys, Cindy 08/16/17 15:49 EDT [facility] ED Note-Nursing Patient's cardiac rh ythm on security monitor shows NSR. HR 75. Electronically signed by Cindy Graham 08/16/17 15:49 EDT [facility] ED Note-Nursing Lunch meal tray prov ided. Pt denies symptoms or concerns at this time. Electronically signed by Gladys, Cindy 08/16/17 13:02 EDT [facility] ED Note-Nursing Pt in Echocardiogram . Electronically signed by Graham, Cindy 08/16/17 12:53 EDT Normal [facility] ED Note-Nursing Customer Service Representative spoke with Ho use rigger supervisor regarding Pt's admission. Pt will be boarding in the ED while waiting for room availability per returns supervisor. Pt updated. Pt denies needs at this time. Pt states chest pain/tightness starting to resolved. No significant change in Pt's condition noted.Electronically signed by Cindy Peace 08/16/17 10:07 EDT Normal [facility] ED Note-Physicianon 08-17-19 ED Note-Physician Chief Complaint electrocuted---feels heart ( [facility])History of Present Illness Patient presents to [...] for and in the presence of Dr. Christiano Ruanoibe Attestation: The information in this document, created by the medical lab specialist for me, accurately reflects the services I [...] of alleged injury. 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 His friend is with him and states the box that they were working on at the time is high voltage, greater than 1000 V. Are not sure where the injury occurred as this. Power was off to the box at the time. Patient was initially borderline tachycardic but does not have any significant dysrhythmias. Patient was placed on a security monitor in. Additionally, there are no signs [...] Dose: 08/16/17 9:06:00 EDT, Dispense From Location: [facility] AMI 2 Hour Cardiac Monitoring ED [...] 09:15 54.5 Lymph Auto 08/16/17 09:15 33.9 Arroyo Auto 08/16/17 09:15 9.3 Eos Auto 08/16/17 09:15 2.0 Basophil Auto 08/16/17 09:15 0.3 Neutro Absolute 08/16/17 09:15 4.2 Lymph Absolute 08/16/17 09:15 2.6 Arroyo Absolute 08/16/17 09:15 0.7 Eos Absolute 08/16/17 [...] Luis Hamm MD 08/16/2017 10:07 EDT Normal [facility] History and Physicalon 08-16 History and Physical Chief Complaint electrocuted---feels heart ( [facility])History of Present Illness This is a 27-year-old male patient who was at work at [employer] and took a shock from 1000 V [...] By: Francisco Lee MDElectronically signed by W carmen-Osman PICKERINGТатьяна 08/16/17 14:16 EDT Normal [facility] Magnesiumon 08-16-2017 Magnesium 2.0 mg/dL Normal 1.7-2.4 [facility] Comment on above: Performed By: #### M G ####[place] [address] XR Chest 1 Viewon 08-16-2017 XR Chest [...] Electronically Signed in Other Vendor System) Normal [facility] Vital Signs Date Time Vital Sign Value Performing Clinician Facility 03-20-2024 15:33-0500 Body height 188 cm Francisco Rodriguez MD Work Phone: [facility] 03-20-2024 15:33-0500 Body mass index (BMI) [Ratio] 32.61 kg/m2 Francisco Rodriguez MD Work Phone: [facility] 03-20-2024 15:33-0500 Body temperature 97.81 [degF] Francisco Rodriguez MD Work Phone: [facility] 03-20-2024 15:33-0500 Body weight 115.21 kg Francisco Rodriguez MD Work Phone: [facility] 03-20-2024 15:33-0500 Diastolic blood pressure 64 mm[Hg] Francisco Rodriguez MD Work Phone: [facility] 03-20-2024 15:33-0500 Heart rate 96 /min Francisco Rodriguez MD Work Phone: [facility] 03-20-2024 15:33-0500 Respiratory rate 18 /min Francisco Rodriguez MD Work Phone: [facility] 03-20-2024 15:33-0500 SaO2% (BldA) [Mass fraction] 97 % Francisco Rodriguez MD Work Phone: [facility] 03-20-2024 15:33-0500 Systolic blood pressure 118 mm[Hg] Francisco Rodriguez MD Work Phone: [facility] 07-16-2022 08:09-0400 Blood Pressure Location Emigdio HORVATH [facility] 07-16-2022 08:09-0400 Diastolic blood pressure 86 mm[Hg] Emigdio HORVATH [facility] 07-16-2022 08:09-0400 Heart rate 79 /min Emigdio HORVATH [facility] 07-16-2022 08:09-0400 Respiratory rate 16 /min Emigdio HORVATH [facility] 07-16-2022 08:09-0400 Systolic blood pressure 130 mm[Hg] Emigdio HORVATH [facility] Encounters Encounter Date Encounter Type Care Provider Facility Start: 03-20-2024 End: 02-04-2025 Office outpatient visit 25 minutes Francisco Rodriguez MD Work Phone: [facility] Comment on above: Chest pain, central (Primary Dx); Dyslipidemia (CMS/HCC); Family history of early CAD; Class 1 obesity due to excess calories with serious comorbidity and body mass index (BMI) of 32.0 to 32.9 in adult Start: 03-20-2024 End: 03-20-2024 ambulatory FRANCISCO RODRIGUEZ Not Available Start: 03-20-2024 End: 03-20-2024 Bamboo flowsheet Francisco Rodriguez MD Work Phone: [facility] Start: 03-20-2024 End: 03-20-2024 Bamboo flowsheet Francisco Rodriguez MD Work Phone: [facility] Start: 10-15-2023 End: 10-15-2023 Clinisync Result Encounter Francisco Rodriguez MD Work Phone: [facility] Unsolicited Start: 10-15-2023 End: 10-15-2023 Clinisync Result Encounter Francisco Rodriguez MD Work Phone: [facility] Unsolicited Start: 09-19-2023 Patient encounter procedure Francisco Rodriguez MD Work Phone: [facility] Start: 09-19-2023 End: 09-19-2023 ambulatory FRANCISCO RODRIGUEZ Not Available Start: 06-20-2023 End: 06-20-2023 ambulatory FRANCISCO RODRIGUEZ Not Available Start: 07-16-2022 End: 07-17-2022 ambulatory Emigdio HORVATH Facility:[facility] Start: 07-16-2022 End: 07-16-2022 Patient encounter procedure Emigdio HORVATH [facility] Start: 07-13-2022 ambulatory Emigdio HORVATH Facility :[facility] Start: 07-02-2022 End: 07-03-2022 ambulatory Emigdio HORVATH Facility:[id number] Start: 04-12-2022 End: 04-13-2022 ambulatory Emigdio HORVATH Facility:[facility] Start: 04-12-2022 End: 04-12-2022 Patient encounter procedure Emigdio HORVATH [facility] Start: 01-27-2022 End: 01-28-[address] HERNANDEZ ELLIOTT Facility:[facility] Start: 12-09-2021 End: 12-10-[address] DOCTOR FELIX Facility:[facility] Start: 08-16-2017 End: 08-17-2017 Ambulatory MARINASHAHNAZ MOE Facility:[facility] Procedures Date Procedure Procedure Detail Performing Clinician Start: 10-15-2023 ALL CBC WITH AUTO DIFF Francisco Rodriguez MD Work Phone: Start: 07-16-2022 H/O: vasectomy Emigdio HORVATH Start: 07-02-2022 Vasectomy Emigdio HARKINS None (qualifier value) Sheryl HORVATH Plan of Treatment Date Care Activity Detail Author Start: 03-20-2024 End: 03-20-2024 Patient encounter procedure 03/20/2024 3:30 PM EST Office Visit [facility] [address] [place] [phone] Francisco Rodriguez MD [address] [place] [phone] Arrived [facility] Comment on above: Arrived Start: 03-20-2024 End: 03-20-2026 [place] [facility] Perfusion W single state of exercise Stress test with myocardial perfusion Cardiac Nuclear Medicine Routine Chest pain, central Dyslipidemia (CMS/HCC) Family history of early CAD Class 1 obesity due to excess calories with serious comorbidity and body mass index (BMI) of 32.0 to 32.9 in adult Expected: 03/20/2024 (Approximate), Ex[facility]: Comment on above: Expected: 03/20/2024 (Approximate), Expires: 03/20/2026 Start: 10-16-2023 Influenza vaccination Influenza Vacc ine (#1) [facility] Immunizations Immunization Date Immunization Notes Care Provider Alan ya 10-23-2004 measles, mumps and rubella virus vaccine Emigdio HORVATH [facility] 09-20-1996 DTaP, unspecified formulation Emigdio HORVATH [facility] 10-09-1993 DTaP, unspecified formulation Emigdio HORVATH [facility] 10-09-1993 Hib, unspecified formulation Emigdio HORVATH [facility] 10-31-1992 Hib, unspecified formulation Emigdio HORVATH [facility] 10-31-1992 measles, mumps and rubella virus vaccine Emigdio HORVATH [facility] 03-28-1992 Hib, unspecified formulation Emigdio HORVATH [facility] 1990 Hib, unspecified formulation Emigdio HORVATH [facility] Payers Date Payer Category Payer Self-pay 2017 Worker's Compensation 1990 Unknown [id number] 2.16.84 [id number] 1990 Unknown [id number] 2.16.84 [id number] 1990 Unknown [id number] 2.16.8 [id number] 1990 Unknown [id number] 2.16.8 [id number] 1990 Unknown [id number] 2.16.8 [id number] 1990 Unknown [id number] 2.16.84 [id number] 1990 Unknown [id number] 2.16.84 [id number] 1990 Unknown [id number] 2.16.84 [id number] 1989 Private Health Insurance [id number] 1989 Unknown [id number] 1959 Unknown [id number] Unknown [id number] 2.16.8 [id number] Social History Date Type Detail Facility Start: 04-12-2022 Tobacco smoking status Light tobacco smoker (finding) [facility] Start: 09-19-2023 End: 03-20-2024 Sex Assigned At Male [facility] Start: 06-20-2023 Tobacco smoking status NHIS Never smoked tobacco [facility] Start: 06-20-2023 Tobacco use and exposure User of smokeless tobacco [facility] History of tobacco use Snuff User [facility] Start: 09-19-2023 End: 03-20-2024 History of Social function [facility] Start: 1990 Sex assigned at Not on file [facility] Start: 06-19-2023 Gender identity Identifies as male gender (finding) [facility] Functional Status Date Assessment Result Facility 07-16-2022 Functional Status N/A [facility] 04-12-2022 Functional Status N/A [facility] History of Present illness Narrative 03-20-2024 Francisco Rodriguez MD - 03/20/2024 4:17 PM Elsy Rodriguez MD - 03/20/2024 3:30 PM EST Note Date & Type Note Facility 03-20-2024 History of Presen t illness Narrative Associated Problem(s): Chest pain, central Continued chest pain and risk factors include dyslipidemia, obesity, and family history. Check treadmill cardiolyte stress test. Images from the original note were not included. Subjective Patient ID: Luly Sandhu is a 33 y.o. male who presents for Follow-up (Er f/up chest pains). ER follow up from 03/07 for chest pain. C/o pain off and on for several years. Pain typically in mid chest and feels like heaviness or pressure. Typically no radiation into arm or neck. Associated with heart racing and mild SOB. Day of ER patient was out shoveling snow. Developed severe pain and radiated into left arm. Labs and EKG normal and discharged home. Still frequent pain. Notice worse with stress but can occur at rest and with exertion. Dad with CO around age 50. Stress test normal in 2021. Review of Systems Constitutional: Negative for fatigue. Respiratory: Negative for cough, shortness of breath and wheezing. Cardiovascular: Positive for chest pain. Negative for palpitations. Gastrointestinal: Negative for abdominal pain, diarrhea, nausea and vomiting. Genitourinary: Negative for dysuria. Objective Physical Exam Constitutional: General: He is not in acute distress. Appearance: Normal appearance. HENT: Head: Normocephalic. Right Ear: Tympanic membrane and ear canal normal. Left Ear: Tympanic membrane and ear canal normal. Eyes: Extraocular Movements: Extraocular movements intact. Pupils: Pupils are equal, round, and reactive to light. Cardiovascular: Rate and Rhythm: Normal rate and regular rhythm. Heart sounds: No murmur heard. No friction rub. No gallop. Pulmonary: Breath sounds: Normal breath sounds. No wheezing, rhonchi or rales. Abdominal: General: Bowel sounds are normal. There is no distension. Palpations: Abdomen is soft. Tenderness: There is no abdominal tenderness. There is no guarding or rebound. Musculoskeletal: Left lower leg: No edema. Neurological: Mental Status: He is alert. Assessment/Plan Problem List Items Addressed This Visit Chest pain, central - Primary Continued chest pain and risk factors include dyslipidemia, obesity, and family history. Check treadmill cardiolyte stress test. Relevant Orders Stress test with myocardial perfusion Dyslipidemia (CMS/HCC) Relevant Orders Stress test with myocardial perfusion Family history of early CAD Relevant Orders Stress test with myocardial perfusion Class 1 obesity due to excess calories with serious comorbidity and body mass index (BMI) of 32.0 to 32.9 in adult Relevant Orders Stress test with myocardial perfusion documented in this encounter [facility] Discharge instructions 07-16-2022 Note Date & [...] provider. Document Revised: 07/07/2020 Document Reviewed: 07/07/2020 [employer] Patient Education 2022 [employer]. Follow Up Care 04/12/2022 13:33:46 With:YULIET CARR, Emigdio Edwards, URL Address: [facility] [address] [place] [address]- When: Unknown [facility] Discharge instructions 04-12-2022 Note Date & [...] Follow these instructions at home: Medicines Take cfnh-ljl-lrwpaqv and prescription medicines only as told by [...] 08/20/2005 Document Revised: 01/13/2018 Document Reviewed: 04/29/2017 [employer] Patient Education 2020 [employer]. Follow Up Care 03/18/2022 15:42:03 With:YULIET CARR, Emigdio Edwards, URL Address: [facility] [address], [place] [address]- When: Unknown [facility] Evaluation + Plan note Note Date & Type Note Facility Evaluation + Plan note Future Appointments Appointment Date:07/16/2022 08:00:00 AM Scheduled Provider:Emigdio HORVATH MD Location:[facility] Appointment Type:URO Office Visit [facility] Evaluation note Note Date & Type Note Facility Evaluation note Diagnosis Annual physical exam- Primary Routine general medical examination at a health care facility Dermatitis, dyshidrotic Dyshidrosis Chest pain, central- Primary Dyslipidemia (CMS/HCC) Other and unspecified hyperlipidemia Family history of early CAD Family history of ischemic heart disease Class 1 obesity due to excess calories with serious comorbidity and body mass index (BMI) of 32.0 to 32.9 in adult documented in this encounter [facility] Hospital course Narrative Note Date & Type Note Facility Hospital course Narrative No data available for this section [facility] Progress note Note Date & Type Note Facility Progress note No data available for this section [facility] Summary Purpose Family History No Family History [...] section and content) DATE CREATED AUTHOR 08/19/2017 [facility] DATE CREATED AUTHOR AUTHOR'S ORGANIZ ATION 02/05/2022 [facility] DATE CREATED AUTHOR AUTHOR'S ORGANIZ ATION 07/25/2022 [facility] DATE CREATED AUTHOR AUTHOR'S ORGANIZ ATION 07/25/2022 [facility] DATE CREATED AUTHOR AUTHOR'S ORGANIZ ATION 03/22/2024 [facility] EPIC Patient Care team informatio n (unrecognized section and content) Segment Block Layer Relationship Specialty Start Date End Date Francisco Rodriguez MD [address] [place] [address] PCP - General Family Medicine 05/30/23 Segment Block Layer Relationship Specialty Start Date End Date Francisco Rodriguez MD [address] [place] [id number] PCP - General Family Medicine 05/30/23 Segment Block Layer Relationship Specialty Start Date End Date Francisco Rodriguez MD [address] [place] [id number] PCP - General Family Medicine 05/30/23 Reason for Visit (unrecogniz ed section and content) Reason Comments Follow-up Er f/up chest pains FOR RECORDS PERTAINING TO PATIENTS WHO ARE [...] BE BASED ON THE PRIMARY CLINICAL RECORDS. [facility]. provides no warranty or guarantee of the accuracy or completeness of information in this document.
--- NOTE | 2024-04-10 06:15 | NM_ITS ---
Patient Name: LULY SANDHU MR#: [id number] : 1990 Exam Date: 04/10/2024 Ordering Doctor: DR Francisco Muse . RADIOLOGY REPORT PROCEDURE: NM EDILBERTO PERF SPECT REST STR COMPARISON: None. INDICATIONS: CHEST PAIN TECHNIQUE: Exam Description: Stress/Rest one day protocol gated SPECT Rest Imagin.9 mCi Tc-99m Cardiolite IV on 04/10/2024 Stress Imaging 30.5 mCi Tc-99m Cardiolite IV on 04/10/2024 Exercise Protocol: Michael Heart Rate (bpm): Rest: 62 Max: 171 PMHR: 90 Blood Pressure: Rest: 124/80 Max: 170/82 Exercise Time: Minutes: 9 Seconds: 40 Stage Reached: Stage: 4 Mets 12.3 Symptoms: Rest and peak stress ECG findings were abnormal and the exercise portion of the study was Equivocal per attending physician Dr. Huitron due to 2mm ST segment depression in inferolateral leads during peak exercise, but not present during recovery. For more details please see separate cardiac stress test report. FINDINGS: QUALITY OF STUDY: Good PERFUSION DEFECT: LOCATION: Apical, basal septal SIZE: Moderate SEVERITY: Moderate TYPE: Seen predominantly in rest images likely representing physiological apical thinning and soft tissue attenuation WALL MOTION: Normal wall motion LV SIZE: 116 mL. TID / TCD: 0.9 LVEF: Calculated EF 67%. SUMMARY: Myocardial perfusion imaging study CONCLUSION: 1. Myocardial perfusion is normal with soft tissue attenuation 2. Global left ventricular systolic function is normal 3. No evidence of transient ischemic dilatation Dictated by: Hanane Crow M.D. on 04/11/2024 at 14:20 Approved by: Hanane Crow M.D. on 04/11/2024 at 14:43
--- NOTE | 2024-04-10 09:27 | PM.STRESS ---
Stress Test Stress Test Allergies Allergy/AdvReac Type Severity Reaction Status Date / Time No Known Drug Allergies Allergy Verified 03/07/24 21:14 Requesting physician: Francisco Muse Procedure: Exercise Cardiolite stress test General Information: Reason for Stress Test: Chest pain Cardiac History and Risk Factors: History of electrocution requiring resuscitation. Unspecified family history of cardiovascular disease. Resting 12 - Lead Electrocardiogram: Sinus bradycardia with HR 49. Inverted T-waves in aVL Elevated J-points across inferolateral leads, but otherwise ST-segments appear normal. Normal axis. Stress Test: Protocol: Michael protocol was followed, with injection of Cardiolite once target heart rate was achieved. Exercise capacity: Excellent exercise capacity. Total exercise time of 9 minutes 41 seconds reached Michael stage 4 at 4.2MPH, 16% grade, & 12.3 METs. Blood pressure: Initial: 124/80, Maximum: 170/82 Rate & rhythm: During recovery, there appeared to be a mild sinus arrhythmia, most prevalent at 1 minute into recovery. The maximum heart rate was 171, which was 90% of the maximum predicted heart rate. PVC were noted ST-segments & T-waves: The elevated J-points lowered during exercise Approaching end of exercise, ST-segment depression up to 2mm was noted, especially in the inferior (III, aVF) and lateral leads (V4-6) @ 9 minutes, 41 seconds. Patient response/symptoms: No reproducible symptoms to chief complaint. Interpretation: Equivocal exercise stress test with 2mm ST segment depression in the inferolateral leads during peak exercise but none noted during recovery. No reproducible symptoms. Cardiolite imaging interpretation will be reported separately. Clinical correlation required.?
== END 2024-04-10 06:04 | disposition home or self-care (01) ==
LOC: NM 06:04
PROVIDERS: PCP Family Medicine; Visit Provider Family Medicine
DX: R07.9 Chest pain, unspecified (principal); E78.5 Hyperlipidemia, unspecified; Z82.49 Family history of ischemic heart disease and other diseases of the circulatory system; E66.811 Obesity, class 1; Z68.32 Body mass index [BMI] 32.0-32.9, adult
CPT/HCPCS: 78452; 93017; A9500

== ENCOUNTER 2025-01-19 07:54 | Outpatient (OUT) | payer OTHER, SELFPAY ==
--- OUTSIDE RECORDS SUMMARY | 2025-01-15 11:08 | XMS_ITS | Continuity of Care Document ---
Author Organization [facility] Address [address] [place] [address] Phone Care Team Providers Care Turn Sewer Name Role Phone Francisco Muse MD Primary Care Provider Francisco Muse MD Attending Provider Care Teams Patient Care Team Team Status: Active Member Role/Relationship Status Dates Francisco Muse MD Primary Care Provider Active Patient Care Team Team Status: Inactive Member Role/Relationship Status Dates Francisco Muse MD Primary Care Provider Active S tart: January 15, 2025 End: January 15, 2025Marc MURALI Musettending ProviderActiveStart: January 15, 2025 End: January 15, 2025 Chief Complaint and Reason for Visit Chief Complaint Admit Date stomach pain/looking for a referral Dece [facility] 2024 3:28pm Reason for Visit Admit Date Annual physical exam January 15, 2025 3:28pm RUQ abdominal pain January 15, 2025 3 :28pm Allergies, Adverse Reactions, Alerts Allergen Type Severity Reaction Last Updated Verified Status No Known Allergies Allergy Unknown January 15, 2025 3:39pmYesActive Social History Smoking Status Unknown if ever smoked Observation Status Observation Response Date of Response Legal Sex Male (finding) Sex Assigned At BirthMalil 1990 Problems Active Problems Problem Diagnosis/Recorded Date Onset Date Stat us RUQ abdominal pain January 15, 2025 4:04pm Unknown Active NAFLD (nonalcoholic fatty liver disease) January 14, 2025 11:33am Unknown Active Dyslipidemia January 14, 2025 11:33am Unknown A ctive Annual physical exam January 15, 2025 4:04pm Unknown Active Dyshidrotic eczema January 15, 2025 3:54pm Unknown Active Family history of early CAD January 14, 2025 11:33am Unknown Active Medications No known medications Vital Signs Vital Reading Result Reference Range Collection Date/Time Height 74 [in_i] January 15, 2025 3:87fbAhvsyg057.38 kgJanuary 15, 2025 3:36pmBody Qvnbcmzuvwb94.4 [degF]97.6-99.0January 15, 2025 3:36pmHeart Rate92 /sxm21-667 January 15, 2025 3:36pmRespiratory rate12 /ddm75-10XojcgacbJanuary 15, 2025 3:36pm Oxygen saturation by Pulse soumcsye67 %95-100January 15, 2025 3:36pmBP Wrxxmbad680 mm[Hg]100-140January 15, 2025 3:36pmBP Owuxuyazq60 mm[Hg]60-100 January 15, 2025 3:36pmBMI (Body Mass Index)32.6 kg/d8MhzfwvhqJanuary 15, 2025 3:36pm Advance Directives Advance Directive Response Recorded Date/ Time Advance Directives No December 2:16pm Insurance Providers Qamar Wright Martha Address [address] [place] [phone] Info.Home Phone: C Payer Group Member ID Coverage Type Subscriber Relationship to Subscriber Effective Date Expiration Date [facility] Philip [id number] Kyle Martha Id: [id number] [address] [place] [phone] Home Phone: CSelfSelf Pay nullSelfSelf Encounters Encounter Location(s) Arrival/Admit Date Discharge/Departure Date Discharge/Departure Disposition Provider(s) Departed Physician/ Provider Office Visit -[facility] Family Medicine Jesse January 15, 2025 3:28pm January 15, 2025 4:07pm Discharged to home care or self care (routine discharge) Francisco Muse MD Recent Diagnosis Onset Date Admit Date Annual physical exam Unknown January 3:28pm RUQ abdominal pain Unknown January 15, 2025 3:28pm Assessments Diagnosis Onset Date Resolution Status Admit Date Annual physical exam acuteJanuary 15, 2025 3:28pmRUQ abdominal painacuteJanuary 15, 2025 3:28pm Plan of Treatment Future Tests Future scheduled test information is unavailable Pending Tests Test Name Ordered Date Scheduled Date Comprehensive Metabolic Panel January 15, 2025 4:02pm US gall bladderDece2024 4:00pmUS liverDece2024 4:02pm Future Visits Future appointment information is unavailable Future Procedures Procedure Name Ordered Date Scheduled Date A1C with Estimated Average Glu January 15 4:02pm Complete Blood Count Auto DiffDece2024 4:02pmLipid PanelDece2024 4:02pmThyroid Stimulating HormoneDece2024 4:02pm Future Medications Future medication information is unavailable Patient Instructions Patient instructions are unavailable
--- OUTSIDE RECORDS SUMMARY | 2025-01-19 07:57 | XMS_ITS | CCD ---
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 above:Result Comment: CUT-OFF POINTS HAVE BEEN ESTABLISHED BASED ON THE FOURTH UNIVERSAL DEFINITIONS OF MYOCARDIAL INFARCTION. THE UPPER REFERENCE LIMIT (URL) OF TROPONIN, DEFINED THE 99TH PERCENTILE OF cTnI DISTRIBUTION IN A REFERENCE POPULATION, HAS BEEN CONFIRMED THE DECISION THRESHOLD FOR PR DIAGNOSIS.Performed By: #### CMADM, BMP #### [facility] [address] [address] [address] Coby SingletonMYO50 ng/zPSotkyv68-66Bbv [facility] CenterComment on above: Performed By: #### CMADM, BMP #### [facility] [address] [address] [address] Coby JuarezC AUTO DIFFon [id number] #0.0 103/ulNormal0.0-0.1The [facility] CenterComment on above:Performed By: #### CBC #### [facility] [address] [place] [address] Dr. Coby SingletonBasophils/100 WBC (Bld)0.4 %Normal0.2-2.0[facility] Comment on above:Performed By: #### CBC #### [facility] [address] [place] [address] Dr. Coby HopperO #0.1 103/ulNormal0.0-0.7The [facility] CenterComment on above: Performed By: #### CBC #### [facility] [address] [place] [address] Dr. Coby Hopperosinophils/100 WBC (Bld)1.6 %Normal0.9-7.0[facility] Comment on above:Performed By: #### CBC #### [facility] [address] [place] [address] Dr. Coby Hopperrythrocyte distribution width (RBC) [Ratio]12.2 %Ruabag38.0-15.0 The [facility] CenterComment on above:Performed By: #### CBC #### [facility] [address] [place] [address] Dr. Coby SingletonHematocrit (Bld) [Volume fraction]42.8 %Rhrbni57.0-54.0The [facility] CenterComment on above:Performed By: #### CBC #### [facility] [address] [place] [address] Dr. Coby SingletonHemoglobin (Bld) [Mass/Vol]14.7 g/lMCtpqtn70.0-18.0[facility] Samaritan HospitalComment on above:Performed By: #### CBC #### [facility] [address] [place] [address] Dr. Coby Gonzales #0.03 10e3/ulNormal0.00-0.03The [facility] CenterComment on above:Performed By: #### CBC #### [facility] [address] [place] [address] Dr. Coby Gonzales %0.4 %Normal0.0-0.5The [facility] CenterComment on above: Performed By: #### CBC #### [facility] [address] [place] [address] Dr. Coby Waddell #2.4 103/ulNormal1.2-3.8The [facility] CenterComment on above:Performed By: #### CBC #### [facility] [address] [place] [address] Dr. Coby Shuklahocytes/100 WBC (Bld)29.9 %Htcoem40.5-60.0The [facility] CenterComment on above:Performed By: #### CBC #### [facility] [address] [place] [address] Dr. Coby SmithUAL DIFF REQNONormalThe [facility] CenterComment on above: Performed By: #### CBC #### [facility] [address] [place] [address] Dr. Coby Hilliard (RBC) [Entitic mass]29.5 ukXnenjm27.9-34.0The [facility] CenterComment on above:Performed By: #### CBC #### [facility] [address] [place] [address] Dr. Coby Hilliard (RBC) [Mass/Vol]34.3 g/nKLuzeld50.9-35.2The [facility] CenterComment on above:Performed By: #### CBC #### [facility] [address] [place] [address] Dr. Coby Hilliard (RBC) [Entitic vol]85.8 xMVwzjza41.0-94.0The [facility] CenterComment on above:Performed By: #### CBC #### [facility] [address] [place] [address] Dr. Coby Shore #0.6 103/ulNormal0.3-0.8The [facility] CenterComment on above:Performed By: #### CBC #### [facility] [address] [place] [address] Dr. Coby Ruhsingocytes/100 WBC (Bld)7.6 %Normal1.7-12.0The [facility] Comment on above:Performed By: #### CBC #### [facility] [address] [place] [address] Dr. Coby Johnson #4.7 103/ulNormal1.4-6.5The [facility] CenterComment on above:Performed By: #### CBC #### [facility] [address] [place] [address] Dr. Coby Wilksutrophils/100 WBC (Bld)60.1 %Jmncao30.0-75.0The [facility] CenterComment on above:Performed By: #### CBC #### [facility] [address] [place] [address] Dr. Coby Mccauley mean volume (Bld) [Entitic vol]10.5 fLNormal9.5-13.5The [facility] CenterComment on above:Performed By: #### CBC #### [facility] [address] [place] [address] Dr. Coby SingletonPLT267 103/utPcwqkq404-565Czq [facility] CenterComment on above: Performed By: #### CBC #### [facility] [address] [place] [address] Dr. Coby SingletonRBC4.99 106/ulNormal4.70-6.10The [facility] CenterComment on above:Performed By: #### CBC #### [facility] [address] [place] [address] Dr. Coby SingletonWBC7.9 103/ulNormal4.0-11.0The [facility] Hospitalment on above: Performed By: #### CBC #### [facility] [address] [place] [address] Dr. Coby Summers-DIMERon 65-09-9791J-DIMER0.19 mg/L FEUNormal<=0.59Tri[facility] Samaritan HospitalComment on above:Performed By: #### DDIM #### [facility] [address] [place] [address] Dr. Coby McclureDIMER COMMENTSSEE [facility] HospitalComhutzel women's hospital on above:Result Comment: Increases in D-Dimer concentration observed with thromboembolic events [...] stress, and generalized hospitalization. Performed By: #### DDIM #### [facility] [address] [place] [address] Dr. Coby SingletonPROF CHEM 8 (BAS METB)on 86-86-2423Zohmu gap [Moles/Vol]8.5 mmol/LNormalTrihealth Good Samaritan HospitalComhutzel women's hospital on above:Performed By: #### CMADM, BMP #### [facility] [address] [place] [address] Dr. Coby SingletonCalcium [Mass/Vol]8.7 mg/dLNormal8.5-10.1The [facility] Comment on above:Performed By: #### CMADM, BMP #### [facility] [address] [place] [address] Dr. Coby SingletonChloride [Moles/Vol]109 mmol/LCritically oves04-634Vqg [facility] CenterComment on above:Performed By: #### CMADM, BMP #### [facility] [address] [place] [address] Dr. Coby SingletonCO2 [Moles/Vol]23.4 mmol/PIpxkuk17.0-32.0[facility] Comment on above:Performed By: #### CMADM, BMP #### [facility] [address] [address] [address] Coby SingletonCreatinine [Mass/Vol]1.14 mg/dLNormal0.70-1.30The [facility] CenterComment on above:Performed By: #### CMADM, BMP #### [facility] [address] [address] [address] Coby HopperGFR-AF CHADIAN>60Normal>=60The [facility] CenterComment on above:Performed By: #### CMADM, BMP #### [facility] [address] [place] [address] Dr. Coby HopperGFR-NON AF CHADIAN>60Normal>=60The [facility] CenterComment on above:Performed By: #### CMADM, BMP #### [facility] [address] [place] [address] Dr. Coby SingletonGlucose [Mass/Vol]100 mg/yLRfsslo08-229YamTrihealth Good Samaritan Hospital Comment on above:Performed By: #### CMADM, BMP #### [facility] [address] [place] [address] Dr. Coby SingletonPotassium [Moles/Vol]4.9 mmol/LNormal3.5-5.1[facility] Comment on above:Performed By: #### CMADM, BMP #### [facility] [address] [place] [address] Dr. Coby Dcdium [Moles/Vol]136 mmol/HLjyhyl637-889VcwTrihealth Good Samaritan Hospital Comment on above:Performed By: #### CMADM, BMP #### [facility] [address] [place] [address] Dr. Coby SingletonUrea nitrogen [Mass/Vol]17.0 mg/dLNormal7.0-18.0[facility] Samaritan HospitalComment on above:Performed By: #### CMADM, BMP #### [facility] [address] [place] [address] Dr. Yilan ChangUrea nitrogen/Creatinine [Mass ratio]14.9 mg/mgTwin City HospitalComment on above:Performed By: #### CMADM, [facility] #### [facility] [address] [place], [place] [address] Dr. Coby SingletonXR CHEST 2 Von [id number] CHEST 2 VEXAM: XR CHEST 2 V COMPARISON: None available. CLINICAL INDICATION: Chest pain. FINDINGS: The cardiomediastinal silhouette is within normal limits. No focal consolidation. No pleural effusion. No pneumothorax. No evidence of acute osseous abnormality. IMPRESSION: No acute findings. Electronically authenticated by: JENIFER BARNARD Date: 2021-12-09 20:51[facility].eGFRon 88-86-0374pVST (non-black)mL/min/{1.73_m2}Normal>=60 [facility] HospitalComment on above:Result Comment: Result = 0-14.9 mL/min/1.73 m2 Kidney failure or DialysisResult = 15-29 mL/min/1.73m2 Severe decrease in GFRResult = 30-59 mL/min/1.73 [...] This GFR is NOT used for medication dosing.Performed By: #### CBC ####[address] [place], [place] [address]Posbrp Comment: Result = 0-14.9 mL/min/1.73 m2 Kidney failure or DialysisResult = 15-29 mL/min/1.73m2 Severe decrease in GFRResult = 30-59 mL/min/1.73 m2 Moderate decrease in GFRResult >= 60 mL/min/1.73 m2 Normal or increased GFRCBCon 64-12-6400Orsfqorythc distribution width Auto Ratio (RBC)13.7 %Tveqvx00.6-14.8BKettering Health TroyComment on above:Performed By: #### CBC ####[address] [id number] (RBC)4.72 x10*6/mcLNormal 4.30-5.80[facility]igh HospitalComment on above:Performed By: #### CBC ####[address] [address]Hematocrit (HCT)42.5 %Jkdazb84.0-53.0[facility]igh HospitalComment on above: Performed By: #### CBC ####[address] [address]Hemoglobin mass conc (Bld)14.7 g/lROlcern43.5-17.5 [facility] HospitalComment on above:Performed By: #### CBC ####[address] [address]MCH31.1 pg Grbudg34.0-35.0[facility] HospitalComment on above:Performed By: #### CBC ####[address]MCHC mass conc (RBC)34.5 %Bwxaug69.0-37.0[facility] HospitalComment on above:Performed By: #### CBC ####[address]MCV90.0 mYSscmnt96.0-100.0[facility] Comment on above:Performed By: #### CBC ####[address] [address]Platelet mean volume (PMV)9.2 fLNormal6.7-10.6 [facility] HospitalComment on above:Performed By: #### CBC ####[address] [address]Platelets222 x10*3/tfZDgqbyp441-646YicxxjrbrGlenbeigh HospitalComment on above:Performed By: #### CBC ####[address] [address]WBC (Leukocytes)6.9 x10*3/mcLNormal4.5-11.0[facility] Comment on above:Performed By: #### CBC ####[address] [address]WUVwc 14-07-0009Qjnefpf aminotransferase (ALT)13 U/L Zgn88-04VgpfisnuvGlenbeigh HospitalComment on above:Performed By: #### CBC ####[address] [address]Ebypwxx2.6 g/dLNormal3.2-4.9BKettering Health TroyComment on above:Performed By: #### CBC ####[address] [address] Albumin/Globulin Ratio1.3 {ratio}Normal1.1-2.2BKettering Health Troy Comment on above:Performed By: #### CBC ####[address] [address]Phr Phos90 IU/YSfmznt77-91AhevjyeugGlenbeigh HospitalComment on above:Performed By: #### CBC ####[address] [address]Dncfq gap10 mmol/LNormal7-17[facility] HospitalComment on above:Performed By: #### CBC ####[address] [address]Ulqtaxqve aminotransferase (AST) 19 U/RHncbnw20-88GzupbgdcaGlenbeigh HospitalComment on above:Performed By: #### CBC ####[address] [address] Bili Total0.7 mg/dLNormal0.3-1.2BKettering Health TroyComment on above: Performed By: #### CBC ####[address] [address]MPV/Creatinine Ratio16.5 mg/awKhwyjw66.0-25.0[facility] HospitalComment on above:Performed By: #### CBC ####[address] [address]Yoehcyy2.6 mg/dLNormal8.5-10.3 [facility] HospitalComment on above:Performed By: #### CBC ####[address] [address]Lcbucyow196 mmol/WRuyuxj41-081AhfkzjrowGlenbeigh HospitalComment on above:Performed By: #### CBC ####[address] [address]KI2 23 mmol/TTuqdbw59-29GsdnigfnvGlenbeigh HospitalComment on above:Performed By: #### CBC ####[address] [address] Creatinine0.91 mg/dLNormal0.61-1.24[facility] HospitalComment on above:Performed By: #### CBC ####[address] [address]Byytwwk mass conc97 mg/wGUumrfl58-993KkmveznfiGlenbeigh HospitalComment on above:Performed By: #### CBC ####[address] [address]Lnthkwllf molar conc4.7 mmol/L Normal3.4-4.8BKettering Health TroyComment on above:Performed By: #### CBC ####[address] [address]Akzrmld 6.3 g/dLLow6.5-8.1BKettering Health TroyComment on above:Performed By: #### CBC ####[address] [address] Bzmbwz679 mmol/UHjakhl975-378SlbvhzaajGlenbeigh HospitalComment on above: Performed By: #### CBC ####[address] [address]Myqu mg/dLNormal8-26G[facility]igh HospitalComment on above:Performed By: #### CBC ####[address] [address]Scshpixqa Summaryon 31-32-9520Taqmbwtes SummaryAdmission Information Date of Arrival: 08/16/2017 Date of Discharge: 08/17/2017 Admitting Dx: Electric injury in an adult, palpitations Discharge Dx: electric injury in an adult, palpitations Consulting Providers: None History of Present Illness This is a 27-year-old male patient who was at work at[employer] and took a shock from [address] [...] this facility and normally follows with Dr. iLm. He drinks alcoholon occasion but not daily and only smokes [...] showing normal sinus rhythm. Patient initially was dizzyand slightly confused however this improved with IV [...] function is normal. The estimated ejection fraction is55-60%. 2. Normal left ventricular function. 3. Normal [...] murmur, gallop or edema. Abdomen: Soft, non-tender, non- distended, normal bowel sounds, no masses. Mental Status: Alert and oriented x3. Skin: pink warm dry and intact Peripheral: 2+ dorsalis pedal pulses and 2+ radial pulses Musculoskeletal: 5/5 strength jude ue and 5/5dorsi/plantar flexion FROMx4 Additional Vitals Peripheral Pulse Rate: 50 bpm LowDischarge Plan Orders: acetaminophen, 650 mg, Oral, Tab, q6hr, PRN fever, First Dose: 08/16/17 12:06:00 EDT, Dispense From Location: [facility] acetaminophen, 650 mg, Oral, Tab, q6hr, PRN mild pain [1-3 on pain scale], First Dose: 08/16/17 12:06:00 EDT, Dispense From Location: [facility] enoxaparin, 40 mg, Subcutaneous, Injection, Daily, First Dose: 08/17/17 9:00:00 EDT, Dispense From Location: [facility] ondansetron, 4 mg, IV Push, Injection, q4hr, PRN nausea, First Dose: 08/16/17 12:06:00 EDT, Dispense From Location: [facility] sodium chloride, 10 mL, IV Push, Injection, As Indicated, PRN flush, First Dose: 08/16/17 12:06:00 EDT, Dispense From Location: [facility] Activity Restrictions Alarm Limit Settings [...] Dari Hale 08/16/2017 09:18 EDTElectronically signed by Татьяна Larry CNP 08/17/17 08:48 EDTNoBluffton HospitalInpatient Clinical Summaryon [id number] Clinical Summary[facility] [place] [address] [address] [address] [address]Kasanjli SummaryPerson InformationName: Luly SandhuRobby Age: 27 Years : 1990Sex: Male PCP: Nickolas Lim DO Status:Single Phone:PCP: [phone]:White Ethnicity:Not or Language:EnglishMRN: [id number] Visit Id: Reason:Tachycardia; Tachycardia Speciality: Acuity:Enc Type: Observation Med Service: CardiologyArrival:08/16/2017 08:47:00 Discharge: Dispo Type: Place in ObservationAddress:[address] [place] [id number]: 1:Electrical injury in adult; 2:PalpitationsDischarged To:Home Zev atments:Devices/Equipment:Professional Skilled Services:Special Services and Community Resources:Mode of Discharge Transportation:Discharge OrdersActivity Restrictions No RestrictionsDiet InstructionRegular home dietFollow up 08/17/17 8:38:00 EDT, Provider: Nickolas Lim DO, 1 weekAllergies No Known Medication AllergiesFunctional Status:Sensory Deficits:History of Falls:Mobility AssistancePrior to Admission:ADLs: IndependentGait: SteadyAmbulation Assist:Assistive Device: NoneSpecial Orthopedic Devices:Current Level of Assistance for Self-Care/Mobility:Cognitive Status:Orientation:Orientation Assessment Oriented x 4Level of Consciousness: AlertCharacteristics [...] -- Normal range between ( 47.2 and 70.8) Lymph Auto: 33.9 % -- Normal range between ( 27.2 and 40.8 ) [place] Auto: 9.3 % -- Normal range between ( 4.7 and 13.9 ) Eos Auto: 2.0 % -- Normal range between ( 0.0 and 6.1 ) Basophil Auto: 0.3 % -- Normal range between ( 0.0 and 1.2 ) Baso Absolute: 0.0 x10 Lymph Absolute: 2.6 x10 [place] Absolute:0.7 x10 Neutro Absolute: 4.2 x10 Eos Absolute: 0.2 x10 Chemistry 08/17/2017 5:03 AM Creatinine Lvl:0.91 mg/dL -- Normal range between ( 0.61 [...] ) 12 Hour Troponin: <0.03 ng/mL -- Normalrange between ( 0.00 and 0.03 ) 08/16/2017 [...] -- Normal range between ( 17.4 and 105.7) Diagnostic Radiology 08/16/2017 9:18 AM XR Chest 1 View: XR Chest 1 View Echocardiography 08/16/2017 1:10 PM EC Cardiac Echo Transthoracic (TTE): EC Cardiac Echo Transthoracic (TTE)Measurements:Height:Weight:Blood Pressure: 145 mmHg /BMI:Respiratory:Respirations: UnlaboredRespiratory Symptoms: NoneCardiovascular:Heart Sounds:Heart Rhythm: RegularGastrointestinal:GI Symptoms:Bowel Sounds: PresentVital Signs:Temp Axillary:Temp Temporal Artery:Temp Oral: 36.6 degCTemp Rectal:Apical Heart Rate:Peripheral Pulse Rate: 81 bpmHeart Rate:Respiratory Rate: 16 br/minDietDiet:Feeding Tolerance:Appetite: GoodBraden Assessment: 21Procedures No Procedures DocumentedImmunizations No Immunizations Documented This VisitCare Team Members:Attending Physician: Sherman CARR, MauricioepConsulting Physician:Referring Physician:Follow up:With: Address: When:Nickolas Lim [address] [place] [address] [phone] Business (1) Within 1 weekComments:Call for followup appointment [facility] HospitalMagnesiumon 85-54-4782Mcopbwwlo4.0 mg/dL Normal1.7-2.4BKettering Health TroyComment on above:Performed By: #### CBC ####[address] [address] Phosphoruson 55-88-5330Pttdvnuvt4.6 mg/dLNormal2.5-4.6BKettering Health TroyComment on above:Performed By: #### CBC ####[address] [address].eGFRon 67-61-0328zFSL (non-black) mL/min/{1.73_m2}Normal>=60G[facility] HospitalComment on above:Result Comment: Result = 0-14.9 mL/min/1.73 m2 Kidney failure or DialysisResult = 15-29 mL/min/1.73m2 Severe decrease in GFRResult = 30-59 mL/min/1.73 [...] This GFR is NOT used for medication dosing.Performed By: #### EGFR ####[address] [address]Zekzed Comment: Result = 0-14.9 mL/min/1.73 m2 Kidney failure or DialysisResult = 15-29 mL/min/1.73m2 Severe decrease in GFRResult = 30-59 mL/min/1.73 m2 Moderate decrease in GFRResult >= 60 mL/min/1.73 m2 Normal or increased GFRAMI Initon 08-16-2017 Initial Pynkzdgse98.0 ng/mLLow17.4-105.7BKettering Health TroyComment on above:Performed By: #### AMI1 ####[address] [address]Pffatfrs I.cardiac mass concng/mLNormal0.00-0.03G[facility]igh HospitalComment on above:Result Comment: An increased Troponin-I value, in the absence of myocardial ischemia, may indicate other etiologies of cardiac damage.Performed By: #### AMI1 ####[address] [address]FSY03Fhjt 73-77-898107 Hour IYA620 ng/mWKrwgce20-616 [facility] HospitalComment on above:Performed By: #### .Automated Diff ####[address] [address] Troponin I.cardiac mass concng/mLNormal0.00-0.03[facility] Comment on above:Result Comment: An increased Troponin-I value, in the absence of myocardial ischemia, may indicate other etiologies of cardiac damage. Performed By: #### .Automated Diff ####[address] [address]NDP4Mgfr 08-16-20172 Hour Jduzanxxc11.0 ng/mLNormal 17.4-105.7BKettering Health TroyComment on above:Performed By: #### .Automated Diff ####[address] [address]Nyzquhtd I.cardiac mass concng/mLNormal0.00-0.03[facility] HospitalComment on above:Result Comment: An increased Troponin-I value, in the absence of myocardial ischemia, may indicate other etiologies of cardiac damage. Performed By: #### .Automated Diff ####[address] [address]TPE8Vged 08-16-201[address] Hour Eunbbuhfz24.0 ng/mLNormal 17.4-105.7BPremier Health Miami Valley Hospital South SystemComment on above:Performed By: #### .Automated Diff ####[address] [address]Erlombce I.cardiac mass concng/mLNormal0.00-0.03G[facility]igh HospitalComment on above:Result Comment: An increased Troponin-I value, in the absence of myocardial ischemia, may indicate other etiologies of cardiac damage. Performed By: #### .Automated Diff ####[address] [address]SSA w/ Diffon 21-62-0010Oanertmvwsp distribution width Auto Ratio (RBC)13.3 %Lkegjo12.6-14.8BKettering Health TroyComment on above:Performed By: #### CBC ####[address] [address]Erythrocytes (RBC)4.92 x10*6/mcLNormal4.30-5.80[facility] HospitalComment on above:Performed By: #### CBC ####[address] [address]Hematocrit (HCT)44.1 %Normal 41.0-53.0[facility]igh HospitalComment on above:Performed By: #### CBC ####[place], [place] [address]Hemoglobin mass conc (Bld)15.1 g/oWEbnhxo84.5-17.5BKettering Health TroyComment on above:Performed By: #### CBC ####[address] [address]MCH30.6 naQbelkk66.0-35.0[facility] Comment on above:Performed By: #### CBC ####[address] [address]MCHC mass conc (RBC)34.2 %Fltbux52.0-37.0[facility] HospitalComment on above:Performed By: #### CBC ####[address] [address]MCV89.7 kSBrkrdx90.0-100.0 [facility] HospitalComment on above:Performed By: #### CBC ####[address] [address]Platelet mean volume (PMV)9.1 fLNormal6.7-10.6BKettering Health TroyComment on above:Performed By: #### CBC ####[address] [address]Platelets232 x10*3/gbCTcfjqc537-311VhjpmzpxrGlenbeigh HospitalComment on above:Performed By: #### CBC ####[address] [address]OEF (Leukocytes)7.7 x10*3/mcL Normal4.5-11.0G[facility]igh HospitalComment on above:Performed By: #### CBC ####[address] [address]QVOya 10-65-6842Xdxcwrl aminotransferase (ALT)16 U/POsl94-33QmunveedrGlenbeigh HospitalComment on above:Performed By: #### COMP ####[address] [address]Srjicnc8.0 g/dLNormal3.2-4.9BKettering Health TroyComment on above:Performed By: #### COMP ####[address] [address]Nsjteuk/Globulin Ratio1.3 {ratio} Normal1.1-2.2BKettering Health TroyComment on above:Performed By: #### COMP ####[address] [address]Rhb Nzgi753 IU/QLxna94-88MnguftvioGlenbeigh HospitalComment on above:Performed By: #### COMP ####[address] [address]Xxzdp gap10 mmol/LNormal7-17G[facility] HospitalComment on above: Performed By: #### COMP ####[address] [address]Poandxawn aminotransferase (AST)22 U/HHszxzn52-38 [facility] HospitalComment on above:Performed By: #### COMP ####[address] [address]Wzxt Total 0.7 mg/dLNormal0.3-1.2BKettering Health TroyComment on above:Performed By: #### COMP ####[address] [address]TCB/Creatinine Ratio18.0 mg/evZkzoce72.0-25.0[facility] Comment on above:Performed By: #### COMP ####[address], [place] [address]Magaiji9.9 mg/dLNormal8.5-10.3BKettering Health TroyComment on above:Performed By: #### COMP ####[address], [place] [address]Rlxphscm036 mmol/GObbhvl22-848 [facility] HospitalComment on above:Performed By: #### COMP ####[address], [place] [address]ET[address] mmol/L Ixxwqy49-58IcyfpzpluGlenbeigh HospitalComment on above:Performed By: #### COMP ####[address] [place] [address] Creatinine1.00 mg/dLNormal0.61-1.24G[facility]igh HospitalComment on above:Performed By: #### COMP ####[address], [place] [address]Vvvuimw mass conc96 mg/fIDrvptl84-981XdkmwsqusGlenbeigh HospitalComment on above:Performed By: #### COMP ####[address], [place] [address]Utufbwlsz molar conc4.5 mmol/L Normal3.4-4.8BKettering Health TroyComment on above:Performed By: #### COMP ####[address], [place] [address]Hbjyhpy 7.1 g/dLNormal6.5-8.1BKettering Health TroyComment on above:Performed By: #### COMP ####[address], [place] [address]Xoesjv260 mmol/AFvwosw601-222TjmknkihaGlenbeigh HospitalComment on above:Performed By: #### COMP ####[address] [address]Rfpj cidnvtly91 mg/dLNormal8-26Glenbeigh HospitalComment on above:Performed By: #### COMP ####[facility] [place], [place] [address]BHIuo 27-68-2689Unvkrhxz Neirrvjbqmfvl917 IU/ONyssuq35-302NojrednjcGlenbeigh HospitalComment on above:Performed By: #### CP ####[facility] [place] [address] Cardiac Echocardiogram Transthoracicon 07-12-2367Gpoygmi Echocardiogram TransthoracicTRANSTHORACIC ECHOCARDIOGRAMStudy Date/Time: Aug 16 2017 12:35PMBP: 134 / 82HR: 65 bpmHT/WT: 188 cm (74 in) / 95.3 kg (209.6 lb)BSA/BMI: 2.24 m2 / 27 kg/w4NHYPRVLI PROVIDER: Татьяна LarryINTERPREERIKA PHYSICIAN: Nay Glaser MDCARDIAC MEDICAL RECORD RETRIEVAL SPECIALIST: Nely Hector INDICATIONS: >1000 volts electrical shock. ------CONCLUSIONSSUMMARY:1. Left ventricle: Systolic function is normal. The estimated ejection fraction is 55-60%.2. Normal left ventricular function.3. Normal right ventricular function.4. Normal chamber dimensions.5. Normal valve structure with no significant stenosis or regurgitation. STUDY DATA: M-mode, complete 2D, complete spectral Doppler, and color Doppler. Study status: Routine. Patient status: Inpatient. Location: [place] [address]. Procedure: Transthoracic echocardiography was performed. Imagequality was adequate. FINDINGSLE FT VENTRICLE: The cavity size is normal. Wall thickness is normal. Systolicfunction is normal. The estimated ejection fraction is 55-60%. Wall motion isnormal; there are no regional wall motion abnormalities. Left ventri culardiastolic function parameters are normal.LEFT ATRIUM: The atrium [...] Valve area by pressurehalf-time: 3.74 cm2 . Indexedvalve area by pressure half-time: 1.67 cm2 /m2 . Peak gradient (D): 3 mm Hg.AORTIC VALVE: Structurally normal valve. Trileaflet. Cusp separation isnormal. Doppler: Transvalvular velocity is within the normal range. There isno stenosis. There is no regurgitation. VTI ratio of LVOT to aortic valve:0.91. Valve area (VTI): 2.84 cm2 . Indexed valve area (VTI): 1.27 cm2 /m2 . Peakvelocity ratio of LVOTto aortic valve: 0.89. Valve area (Vmax): 2.76 [...] range (greater than or equal to 50%). Measurements Left ventricle Value Reference LV ID, ED, PLAX chordal 5.36 cm LV fx shortening, PLAX chordal 29.67 % 25 - 43 LV ID, ES, PLAX maximal 3.77cm LV PW thickness, ED, PLAX 0.84 cm [...] S 0.82 m/sec Aortic mean gradient, S 3.0mm Hg Aortic peak gradient, S 6.2 mm Hg Aortic valve area, peak velocity 2.76 cm2 Aorta Value Reference Aortic root ID, STJ, ED 2.26 cm Aortic root ID,ED, MM 2.96 cm Left atrium Value Reference [...] Glaser MD DT/TM: 08/16/2017 4:04 pmSigned by: Nay Glaser MD (Electronic Signature): 08/16/2017 4:04 pm(If Report Is Signed, Electronically Signed in Other Vendor System)Henry County HospitalDiff Autoon 80-46-3115Oway Absolute0.0 x10*3/mcLNormal0.0-0.2BKettering Health Troy Comment on above:Performed By: #### .Automated Diff ####[address] [address]Iiopqnwaz/100 WBC Auto (Bld)0.3 % Normal0.0-1.2BKettering Health TroyComment on above:Performed By: #### .Automated Diff ####[address] [address]Ymc Absolute0.2 x10*3/mcLNormal0.0-0.4BKettering Health TroyComment on above:Performed By: #### .Automated Diff ####[address] [address]Mkawnyqzzql/100 leukocytes2.0 %Normal0.0-6.1 Glenbeigh HospitalComment on above:Performed By: #### .Automated Diff ####[address] [address] Lymphocytes2.6 x10*3/mcLNormal1.0-4.8BKettering Health TroyComment on above:Performed By: #### .Automated Diff ####[address] [address]Ggbwfoditlq/100 yuziuhqzzt16.9 %Fudzqi45.2-40.8 Glenbeigh HospitalComment on above:Performed By: #### .Automated Diff ####[address] [address]Crpg Absolute0.7 x10*3/mcLNormal0.3-1.1BKettering Health TroyComment on above:Performed By: #### .Automated Diff ####[address] [address]Fvxaqniws/100 leukocytes9.3 %Normal4.7-13.9 Glenbeigh HospitalComment on above:Performed By: #### .Automated Diff ####[address] [address]Rpdhxg Absolute4.2 x10*3/mcLNormal1.8-7.7BKettering Health TroyComment on above:Performed By: #### .Automated Diff ####[address] [address]Mmqhkh Auto54.5 %Zxlrtr44.2-70.8BKettering Health TroyComment on above:Performed By: #### .Automated Diff ####[address] [address]WO Clinical Summaryon 52-83-7522JQ Clinical Summary [address] [address] ED Clinical SummaryPerson InformationName: Luly Sandhu/[facility] Age: 27 Years : 1990Sex: Male PCP: Nickolas Lim DO Status:Single Phone:Race:White Ethnicity:Not or Language:EnglishMRN: [id number] Reason:Tachycardia; Tachycardia Acuity: 2Enc Type: Observation Med Service: Emergency MedicineArrival:08/16/2017 08:47:00 Discharge: LOS: 000 08:36Checkin:08/16/2017 08:47:00 Checkout: 08/16/2017 17:23:44 Dispo Type: Place in ObservationAddress:[address] [place] [address] Provider Notes: History of Present IllnessPatient presents [...] [Negative for shortness of breath, cough, wheezing, an d pleuritic chest pain]ABDOMEN/GI: [Negative for pain, nausea, vomiting]BACK: [Negative for injury or bruising]: [Negative for injury, bleeding, discharge, frequency, hematuria, urgency]MUSCULOSKELETAL: [Negative for arthralgias, injury and deformity]SKIN: [Negative for injury, rash, discoloration]NEURO: [Positive for confusion, Negative for focal weakness, numbness, tingling, and seizure]ALLERGY/IMMUNOLOGY: [Negative for hives, rash, and new allergies]ENDOCRINE: [Negative for neck swelling, polydipsia, polyuria, marked weight changes, heat/cold intolerance]HEMATOLOGIC/LYMPHATIC: [Negative for swollen lymph nodes, abnormal bleeding, [...] murmurs. Strong radial pulses with intact distal perfusion]GASTROINTESTINAL: [soft, non-tender, non-distended, no palpable masses, no rebound or guarding]GENITOURINARY: [No costovertebral angle tenderness to palpation]LYMPHATICS: [no edema in lower extremities, no lymphadenopathy]MUSCULOSKELETAL: [Extremities are nontender to palpation and have no gross deformity, no edema, redness, or swelling]NEUROLOGIC: [alert and oriented x 3. Initial speech is somewhat slowed?however appropriate.?GCS 15. Moves all extremities x 4 without motor orsensory deficit]PSYCHIATRIC: [normal mood and affect, thought process is clear and linear]Diagnosis:1:Electrical injury in adult; 2:PalpitationsProblems Active No Chronic ProblemsSmoking Status: Smoking Status Current some day smokerFunctional Status:Sensory Deficits:History of Falls:Mobility Assistance Prior to Admission:ADLs:Current Level of Assistance for Self-Care/Mobility:Cognitive Status:Allergies No Known Medication AllergiesLaboratory or Other Results This Visit (last charted value for your 08/16/2017 visit) Hematology 08/16/2017 9:15 AM WBC: 7.7 x10 RBC: 4.92 x10 Neutro Auto: 54.5 % -- Normal range between ( 47.2 and 70.8 ) Lymph Auto: 33.9 % -- Normal range between ( 27.2 and 40.8) [place] Auto: 9.3 % -- Normal range between ( 4.7 and 13.9 ) Eos Auto: 2.0 % -- Normal range between( 0.0 and 6.1 ) Basophil Auto: 0.3 % -- Normal range between ( 0.0 and 1.2 ) Baso Absolute: 0.0 x10MCV: 89.7 fL -- Normal range between ( 80.0 and 100.0 ) MCHC: 34.2 % -- Normal range between ( 31.0and 37.0 ) Lymph Absolute: 2.6 x10 Hct: 44.1 % -- Normal range between ( 41.0 and 53.0 ) [place] Absolute: 0.7 x10 MCH: 30.6 pg -- [...] Troponin: <0.03 ng/mL -- Normal range between (0.00 and 0.03 ) 6 Hour Myoglobin: 18.0 ng/mL -- Normal range between ( 17.4 and 105.7 ) 08/16/2017 11:08 AM 2 Hour Troponin: <0.03 ng/mL -- Normal range between ( 0.00 and 0.03 ) 2 Hour Myoglobin:19.0 ng/mL -- Normal range between ( 17.4 and 105.7 ) 08/16/2017 9:15 AM Creatinine Lvl: 1.00 mg/dL-- Normal range between ( 0.61 and 1.24 ) BUN: 18 mg/dL -- Normal range between ( 8 and 26 ) Glucose Lvl: 96 mg/dL -- Normal range between ( 74 and 118 ) Potassium Lvl: 4.5 mmol/L -- Normal range between ( 3.4 and 4.8 ) AST: 22 IU/L -- Normal range between ( 15 and 41 ) ALT: 16 IU/L -- Normal rangebetween ( 17 and 63 ) Sodium Lvl: 138 mmol/L -- Normal range between ( 133 and 142 ) Calcium Lvl: 8.9 mg/dL -- Normal range between ( 8.5 and 10.3 ) Albumin Lvl: 4.0 g/dL -- Normal range between ( 3.2 and 4.9 ) Total Protein: 7.1 g/dL -- Normal range between ( 6.5 and 8.1 ) Magnesium Lvl: 2.0 mg/dL-- Normal range between ( 1.7 and 2.4 ) Bili Total: 0.7 mg/dL -- Normal range between ( 0.3 and 1.2) Alk Phos: 104 IU/L -- Normal range [...] Chest 1 View: XR Chest 1 View Ech ocardiography 08/16/2017 1:10 PM EC Cardiac Echo Transthoracic (TTE): EC Cardiac Echo Transthoracic(TTE)Measurements:Height:Weight: 30.3 kgBlood Pressure: /80 mmHgBMI:Procedures No Procedures DocumentedImmunizations No Immunizations Documented This VisitFinal Med List:No Known Home MedicationsCareTeam Members:Attending Physician: Sherman CARR, MauricioepConsulting Physician:Referring Physician:Provider Role Assigned UnassLiz CARR, Luis Palma ED Provider 08/16/2017 08:59:20Cindy Graham ED Nurse 08/16/2017 09:58:10Follow up:Discharge Orders:Place in Observation 08/16/17 10:02:00 EDT, Coronary Care Unit, 08/16/17 10:02:00 EDT, Sherman CARR, Sherman Rea MD, MarinaRequest for Admit 08/16/17 10:03:00 EDT, 08/16/17 10:02:00 EDT, Coronary Care UnitPatient Education Information:[facility] Poison Help line: .[facility] Hotline: [place] Tobacco Quit Line: [facility] ([place], [place]) [address]: [phone] ([place], [place]) [address]: [phone] [place] [address] [address] [place], [place]: [phone] HospitalED Note-Nursingon 70-27-6141IE Note-NursingPt updated about wait time for CCU room assignment. Pt denies needs at this time. Electronically signed by Graham, [facility] 08/16/17 15:49 [facility] Note-NursingPatient's cardiac rhythm on clinical research monitor shows NSR. HR 75. Electronically signed by Gladys, [facility] 08/16/17 15:49 [facility] ShawED Note-NursingLunch meal tray provided. Pt denies symptoms or concerns at this time. Electronically signed by Gladys, [facility] 08/16/17 13:02 [facility]ED Note-NursingPt in Echocardiogram. Electronically signed by Gladys, [facility] 08/16/17 12:53 [facility] ShawED Note-NursingWriter spoke with seismic prospecting supervisor regarding Pt's admission. Pt will be boarding in the ED while waiting for room availability per seismic prospecting supervisor. Pt updated. Pt denies needs at this time. Pt states chest pain/tightness starting to resolved. No significant change in Pt's condition noted.Electronic ally signed by BermuCindy jorge 08/16/17 10:07 [facility] Note-Physicianon [id number] Note-PhysicianChief Complaint electrocuted---feels heart ( [facility])History of Present Illness Patient presents to the via private vehicle for the evaluation of chest pain secondary to electrocution. 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 He statesthat he was holding a wire with both [...] and in the presence of Dr. Christiano Berry Attestation: The information in this document, created by the medical officer psychiatry for me, accurately reflectsthe services I personally performed and the decisions [...] alleged injury. 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 His friend is with him and states the box that they were working on at the time is high voltage, greater than 1000 V. Are not sure where the injury occurred as this. Power was off to the box at the time. Patient was initially borderline tachycardic but does not have any significant dysrhythmias. Patient was placed on a front desk monitor in. Additionally, there are no signs [...] Dose: 08/16/17 9:06:00 EDT, Dispense From Location: [facility] AMI 2 Hour Cardiac Monitoring [...] 09:15 54.5 Lymph Auto 08/16/17 09:15 33.9 [place]is[place] Auto 08/16/17 09:15 9.3 Eos Auto 08/16/17 09:15 2.0 Basophil Auto 08/16/17 09:15 0.3 Neutro Absolute 08/16/17 09:15 4.2 Lymph Absolute 08/16/17 09:15 2.6 [place] Absolute 08/16/17 09:15 0.7 Eos Absolute 08/16/17 09:15 0.2 Baso Absolute 08/16/17 09:15 0.0 Routine Chemistry LATEST RESULTS Sodium Lvl 08/16/17 09:15 138 Potassium Lvl 08/16/17 09:15 4.5 Chloride 08/16/17 09:15 110 CO2 08/16/17 09:15 22 Anion Gap 08/16/17 09:15 10 Glucose Lvl 08/16/17 09:15 96BUN 08/16/17 09:15 18 Creatinine Lvl 08/16/17 09:15 1.00 eGFR AA 08/16/17 09:15 >60 eGFR Non-AA 08/16/17 09:15 >60 BUN Crea Ratio 08/16/17 09:15 18.0 Bili Total 08/16/17 09:15 0.7 Alk Phos 08/16/17 09:15 104 High AST 08/16/17 09:15 22 ALT 08/16/17 09:15 16 Low Total Protein 08/16/17 09:15 7.1Albumin Lvl 08/16/17 09:15 4.0 AG Ratio 08/16/17 09:15 1.3 Calcium Lvl 08/16/17 09:15 8.9 MagnesiumLvl 08/16/17 09:15 2.0 Creatine Phosphokinase 08/16/17 09:15 142 Cardiac Isoenzymes LATEST RESULTS Initial Myoglobin 08/16/17 09:15 15.0 Low Initial Troponin 08/16/17 09:15 <0.03Diagnostic ResultsXRay No qualifying data available. Computerized Tomagraphy No qualifying data available. UltrasoundNo qualifying data available. Magnetic Resonance Imaging No qualifying data available. Carmen Parhamlectronically signed by Christiano CARR, Luis Palma 08/16/2017 10:07 EDTNormal [facility] SystemHistory and Physicalon 10-36-3330Ohpxulp and PhysicalChief Complaint electrocuted---feels heart ( [facility])History of Present Illness This is a 27-year-old male patient who was at work at [employer] and took a shock from 1000 V of electricity. He states hedid not lose consciousness but immediately after the shock he was confused he states he still feelscloudy and very dizzy if he does too [...] Pulse Rate: 66 bpmAssessment/Plan 1. Electrical injury inadult monitor telemetry, and cardiac enzymes, recheck labs and echocardiogram, check orthostatic vital signs. 2. Palpitations Recheck ECG in the morning. Patient remained stable overnight was able totolerate walking in the halls without significant dizziness and no ectopy or abnormal rhythms overnight patient can be discharged home. He will need to follow-up with his primary care provider in thenext 1 week. I will continue IV fluids for an additional bag I-125 and hours patient is still very dizzy especially with position changes.Problem List/Past Medical History Ongoing No chronic problemsHistorical No qualifying dataProcedure/Surgical History No history of [...] cardiopulmonary process. Signed By: Rosa CARR, Francisco MaharajElectrondeya signed by Татьяна Larry CNP 08/16/17 14:16 EDTNormalGlenbeigh HospitalMagnesiumon 58-99-5491Jdcmjhtzm5.0 mg/dL Normal1.7-2.4BKettering Health TroyComment on above:Performed By: #### MG ####[place] [address] [place], [place] [address]KH Chest 1 Viewon 87-83-8168WN Chest 1 ViewHISTORY: Patient is a 27-year-old male with tachycardia [...] cardiopulmonary process. Final Dictated by: Francisco Lee MDated DT/TM: 08/16/2017 10:22 amSigned by: Francisco Lee MDigned (Electronic Signature): 08/16/2017 10:22 am(If Report Is Signed, Electronically Signed in Other Vendor System)NormalGlenbeigh Hospital Vital Signs Date TimeVital SignValuePerforming WsysaveatTsqebyza21-66-2497 15:33-0500Body ywtupj331 cmFrancisco Rodriguez MD Work Phone: [facility] CenterTrbuqacfsr62-96-6823 15:33-0500Body mass index (BMI) [Ratio]32.61 kg/m2Francisco Rodriguez MD Work Phone: noFulton State HospitalRmqtcheoyt45-31-3825 15:33-0500Body temperature 97.81 [degF]Francisco Rodriguez MD Work Phone: noFulton State HospitalYyvxqavwbg14-14-9569 15:33-0500Body .21 kgFrancisco Rodriguez MD Work Phone: noFulton State HospitalQfsxmcvqlf76-84-4166 15:33-0500Diastolic blood zmdvcacf12 mm[Hg]Francisco Rodriguez MD Work Phone: noFulton State HospitalLylcxkqdeb40-29-7867 15:33-0500Heart rate96 /min Francisco Rodriguez MD Work Phone: noFulton State HospitalKhcmmfvlct38-09-0324 15:33-0500Respiratory rate18 /minFrancisco Rodriguez MD Work Phone: noFulton State HospitalXrpjapsedp15-32-4165 15:33-2815TqF3% (BldA) [Mass fraction]97 %Francisco Rodriguez MD Work Phone: noFulton State HospitalOgdvdxdmnp56-99-4053 15:33-0500Systolic blood pjcuoqkx510 mm[Hg]Francisco Rodriguez MD Work Phone: [facility] CenterKzroeyselm51-67-0498 08:09-0400Blood Pressure LocationPatricwanda HORVATH [facility]06-02-2023 08:09-0400Diastolic blood nebvuzsm25 mm[Hg]Emigdio HORVATH [facility]06-02-2023 08:09-0400Heart rate79 /minPatrick HORVATH [facility]06-02-2023 08:09-0400Respiratory rate16 /minPatrick HORVATH [facility]06-02-2023 08:09-0400Systolic blood visysglq497 mm[Hg]Emigdio HORVATH [facility] Encounters Encounter DateEncounter TypeCare ProviderFacilityStart: 04-11-2024 End: 18-33-5609Ernkoihqg Result EncounterFrancisco Rodriguez MD Work Phone: [facility] External Department UnsolicitedStart: 04-11-2024 End: 09-07-4226Lizypabzv Result EncounterFrancisco Rodriguez MD Work Phone: n[facility] External Department UnsolicitedStart: 03-20-2024 End: 23-11-0011Njlmek outpatient visit 25 minutesFrancisco Rodriguez MD Work Phone: [facility] CWM FMComment on above:Chest pain, central (Primary Dx); Dyslipidemia (CMS/HCC); Family history of early CAD; Class 1 obesity due to excess calories with serious comorbidity and body mass index (BMI) of 32.0 to 32.9 in adultStart: 03-20-2024 End: 25-71-6173cpvufetpcrEUUH NADERERNot AvailableStart: 03-20-2024 End: 92-82-0274Aejzrl flowsGabrielle Rodriguez MD Work Phone: [facility] CWM FMStart: 03-20-2024 End: 23-52-0419Ufavea Elsa Rodriguez MD Work Phone: [facility] CWM FMStart: 10-15-2023 End: 21-06-3144Ukdvniqnr Result EncounterFrancisco Rodriguez MD Work Phone: n[facility] External Department UnsolicitedStart: 10-15-2023 End: 73-88-2968Nlcsmmpxu Result EncounterFrancisco Rodriguez MD Work Phone: noms External Department UnsolicitedStart: 09-19-2023 Patient encounter procedureFrancisco Rodriguez MD Work Phone: noms HealthcareStart: 09-19-2023 End: 99-36-6431xcydwfkxciLZUO NADERERNot AvailableStart: 07-17-2023 End: 53-68-2657Ujwitzkny Result EncounterFrancisco Rodriguez MD Work Phone: noms External Department UnsolicitedStart: 07-17-2023 End: 80-01-9817Jmljzqiwf Result EncounterFrancisco Rodriguez MD Work Phone: noms External Department UnsolicitedStart: 06-20-2023 End: 84-09-2058dihkypywmhFPJA NADERERNot AvailableStart: 07-16-2022 End: 53-89-7091ywhbrndlnkDwxnuod R WATERSFacility:EU [place]vueStart: 07-16-2022 End: 43-78-7894Ifzpzut encounter procedureEmigdio HORVATH [facility] start: 94-77-9918fmrjogisrvUkbiidd WATERSFacility:EU [place]Start: 07-02-2022 End: 78-42-2178dmcqusdsjeKstrewf R WATERSFacility:CD:[id number]: 04-12-2022 End: 72-22-6962diklgltesnPxrcsfd R WATERSFacility:EU [place]vueStart: 04-12-2022 End: 27-93-3394Cyyqiyb encounter procedureEmigdio HORVATH [facility] start: 01-27-2022 End: 60-10-4699aashlcbnapGH HERNANDEZ Edwards ZIEBERFacility:M6Crmcn: 12-09-2021 End: 23-04-5713jqlqifdydrMQ DOCTOR MISCFacility:B5Zqpwh: 08-16-2017 End: 86-31-6891RtxhvjyvycAPXYMXP KUMARALINGAMFacility:[facility] Procedures DateProcedureProcedure DetailPerforming ClinicianStart: 14-92-0014HU MANE PERF SPECT REST STRFrancisco Rodriguez MD Work Phone: Start: 16-66-1448EJS CBC WITH AUTO DIFFFrancisco Rodriguez MD Work Phone: Start: 05-36-8045WG RIGHT UPPER QUADRANTFrancisco Rodriguez MD Work Phone: Start: 07-16-2022H/O: vasectomyEmigdio HORVATH Start: 77-15-8088KchiqaweySvvzgex WATERS None (qualifier value)Emigdio HORVATH Plan of Treatment DateCare ActivityDetailAuthorStart: 03-20-2024 End: 32-13-0351Okmtdtk encounter xavpyqajv49/04/2025 3:30 PM EST Office Visit [facility] [address] [place] [address] Francisco Rodriguez MD [address] [place] [address] ArrivedNOMS CWM FMComment on above:ArrivedStart: 03-20-2024 End: 17-03-5035DL Heart Perfusion W single state of exerciseStress test with myocardial perfusion Cardiac Nuclear Medicine Routine Chest pain, central Dyslipidemia (CMS/HCC) Family history of early CAD Class 1 obesity due to excess calories with serious comorbidity and body mass index (BMI) of 32.0 to 32.9 in adult Expected: 03/20/2024 (Approximate), Expires: 03/20/2026[facility] Work Phone: Comment on above:Expected: 03/20/2024 (Approximate), Expires: 03/20/2026Start: 79-73-9170Yevkwntls vaccinationInfluenza Vaccine (#1) [facility] Immunizations Immunization DateImmunizationNotesCare EwibspefBzofuzkw94-32-7832gyikajq, mumps and rubella virus vaccinePatrick adSage [facility]08-07-1997DTaP, unspecified formulationPaHyperion Solutionsk adSage [facility]08-26-1994DTaP, unspecified formulationPatrick adSage [facility]08-26-1994Hib, unspecified formulationPatrick adSage [facility]09-17-1993Hib, unspecified formulationPaHyperion Solutionsk adSage [facility]09-17-1993measles, mumps and rubella virus vaccinePatrick HORVATH [facility]02-12-1993Hib, unspecified formulationPatrick HORVATH [facility]09-11-1992Hib, unspecified formulationPatrick HORVATH [facility] Payers DatePayer CategoryPayerPolicy [id number]'s [id number] [id number]. [id number] 2.840.1.577546.3.57[id number] 2.16840.1.841127.3.57[id number] 2.16.840.1.607362.3.57[id number] 2.16.840.1.646151.3.57[id number] 2.16.840.1.959471.3.57[id number] 2.16.840.1.219736.3.57[id number] 2.16840.1.865126.3.579.2.377432-53-2334Wrbbcrl Health Insurance [id number]rpe 1.2.840.270812.1.13.693.2.7.3.807[id number] 2.16.840.1.120071.3.579.2.531 Social History DateTypeDetailFacilityStart: 64-16-5200Kzwavdu smoking statusLight tobacco smoker (finding)[facility] Systemtart: 09-19-2023 End: 98-16-2133Rtx Assigned At BirthMalGreen Cross Hospitaltart: 78-62-2835Wjbyvld smoking status NHISNever smoked tobaccoNOMS HealthcareStart: 88-35-3908Ejwtzqh use and exposureUser of smokeless tobaccoNOMS Healthcare History of tobacco useSnuff UserNOMS HealthcareStart: 09-19-2023 End: 23-23-4567Stmmgdf of Social functionNOMS HealthcareStart: 81-64-3024Tog assigned at birthNot on fileNOMS HealthcareStart: 62-91-8876Iyuech identity Identifies as male gender (finding)[facility]OMS HealthcareStart: 20-59-5754PrcMocuLOTY Healthcare Functional Status MfxuQgjqucmrolLztlsmEmceskdl03-72-2899Cfeiunxaau StatusN/AExec[facility]02-27-2023Functional StatusN/A[facility] History of Present illness Narrative 03-20-2024 Note Date & DryuXrjxVfwjntpy25-46-9939 History of Present illness Narrative* Francisco Rodriguez MD - 03/20/2024 4:17 PM ESTAssociated Problem(s): Chest pain, central Continued chest pain and risk factors include dyslipidemia, obesity, and family history. Check treadmill cardiolyte stress test. * Francisco Rodriguez MD - 03/20/2024 3:30 PM EST Images from the original note were not included. Subjective Patient ID: Luly Sandhu is a 33 y.o. male who presents for Follow-up (Er f/up chest pains). ER follow up from 03/07 for chest pain. C/o pain off and on for several years. Pain typically in midchest and feels like heaviness or pressure. Typically no radiation into arm or neck. Associated with heart racing and mild SOB. Day of ER patient was out shoveling snow. Developed severe pain and radiated into left arm. Labs and EKG normal and discharged home. Still frequent pain. Notice worse withstress but can occur at rest and with exertion. Dad with PR around age 50. Stress test normal in [...] test with myocardial perfusion documented in this [facility] Discharge instructions 07-16-2022 Note Date & [id number] Hospital Discharge instructions Patient Education 07/16/2022 08:07:07 Contraception Choices Contraception Choices Contraception, also called control, refers to methods or devices that prevent . Hormonal methods Contraceptive implant A contraceptive implant is a thin, plastic tube that contains a hormone that prevents . Itis different from an intrauterine device (IUD). It [...] that prevent . They must be taken oncea day, preferably at the same time each day. A prescription is needed to use this method of contraception. control patch The control patch contains hormones that prevent . It is placed on the skin and mustbe changed once a week for three weeks and removed on the fourth week. A prescription is needed to use this method of contraception. Vaginal ring A vaginal ring contains hormones that prevent . It is placed in the vagina for three weeksand removed on the fourth week. After that, the process is repeated with a new ring. A prescriptionis needed to use this method of contraception. Emergency contraceptive Emergency contraceptives prevent after unprotected sex. They come in pill form and can betaken up to 5 days after sex. They [...] body. They can be used with a sperm- killing substance (spermicide) to increase their effectiveness. They [...] into the vagina before sex, along with aspermicide. The diaphragm blocks sperm from entering the [...] fits over the cervix. It is inserted intothe vagina before sex, along with spermicide. It [...] into each fallopian tube. The inserts cause scartissue to form in the fallopian tubes and block them, so sperm cannot reach an egg. The procedure takes about 3 months to be effective. Another form of control must be used during those 3 months. Male sterilization This is a procedure to tie off the tubes that carry sperm (vasectomy). After the procedure, the mancan still ejaculate fluid (semen). Another form of [...] provider. Document Revised: 07/07/2020 Document Reviewed: 07/07/2020 [employer] Patient Education 2022 [employer]. Follow Up Care 04/12/2022 13:33:46 With:YULIET CARR, Emigdio Edwards, URL Address: [facility] [address] , [place] [address]- When: Unknown [facility] Discharge instructions 04-12-2022 Note Date & [id number] Hospital Discharge instructions Patient Education 04/12/2022 08:27:48 Vasectomy, Care [...] Follow these instructions at home: Medicines Take gmcx-xie-rlvagqc and prescription medicines only as told by [...] labor until your pain has improved, or untilyour health care provider says it is okay. Do not ejaculate for at least 1 week after the procedure, or as long as directed. You may resume sexual activity 7 10 days after your procedure, or when your health care provider approves. Use a different method of control (contraception) until you have had test results thatconfirm that there is no sperm in your semen. Scrotal support Use scrotal support, such as a jock strap or underwear with a supportive pouch, as needed for one week after your procedure. If you feel discomfort in your scrotum, you may remove the scrotal support to see if the discomfortis relieved. Sometimes scrotal support can press on [...] 08/20/2005 Document Revised: 01/13/2018 Document Reviewed: 04/29/2017 [employer] Patient Education 2020 [employer]. Follow Up Care 03/18/2022 15:42:03 With:Emigdio HORVATH MD, URL Address: [facility] [address], [place] [address]- When: Unknown [facility] Evaluation + Plan note Note Date & TypeNoteFacilityEvaluation + Plan note Future Appointments Appointment Date:07/16/2022 08:00:00 AM Scheduled Provider:Emigdio HORVATH MD Location:[facility] Appointment Type:URO Office Visit [facility] Evaluation note Note Date & TypeNoteFacilityEvaluation note* Diagnosis Annual physical exam- Primary Routine general medical examination at a health care facility Dermatitis, dyshidrotic Dyshidrosis Chest pain, central- Primary Dyslipidemia (CMS/HCC) Other and unspecified hyperlipidemia Family history of early CAD Family history of ischemic heart disease Class 1 obesity due to excess calories with serious comorbidity and body mass index (BMI) of 32.0 to 32.9 in adult documented in this encounter [facility] Hospital course Narrative Note Date & TypeNoteFacilityHospital course Narrative No data available for this section [facility] note Note Date & TypeNoteFacilityProgress note No data available for this section [facility] Summary Purpose Family History [...] section and content) DATE CREATED AUTHOR 08/19/2017 [facility] DATE CREATED AUTHOR AUTHOR'S ORGANIZ ATION 02/05/2022 [facility] DATE CREATED AUTHOR AUTHOR'S ORGANIZ ATION 07/25/2022 [facility] DATE CREATED AUTHOR AUTHOR'S ORGANIZ ATION 07/25/2022 [facility] DATE CREATED AUTHOR AUTHOR'S ORGANIZ ATION 03/22/2024 [facility] EPIC Patient Care team informatio n (unrecognized section and content) Team MemberRelationshipSpecialtyStart DateEnd Date Francisco Rodriguez MD [address] [place] [address] PCP - GeneralFamily Medicine05/30/23Team MemberRelationshipSpecialtyStart DateEnd Date Francisco Rodriguez MD [address] [place] [id number] PCP - [facility]05/30/23Te MemberRelationshipSpecialtyStart DateEnd Date Francisco Rodriguez MD [address] [place] [phone] PCP - [facility]05/30/23Te MemberRelationshipSpecialtyStart DateEnd Date Francisco Rodriguez MD [address] [place] [address] [facility] - [facility]05/30/23Te MemberRelationshipSpecialtyStart DateEnd Date Francisco Rodriguez MD PCP - [facility]05/30/23 Reason for Visit (unrecogniz ed section and content) ReasonCommentsFollow-upEr f/up chest pains FOR RECORDS PERTAINING TO [...] BE BASED ON THE PRIMARY CLINICAL RECORDS. [facility]. provides no warranty or guarantee of the accuracy or completeness of information in this document.
--- OUTSIDE RECORDS SUMMARY | 2025-01-19 07:57 | XMS_ITS | Clinical Summary ---
Author Organization [facility] Address [address] [place] [address] Care Team Providers Care Carpenter [employer] Name Role Phone Francisco Muse MD Primary Care Provider [phone] Allergies No known active allergies Medications MedicationSigDispense QuantityRefillsLast FilledStart DateEnd DateStatus triamcinolone (Kenalog) 0.5 % cream Indications:Dermatitis, dyshidroticApply topically 3 (three) times a day 60 g ctive Active Problems ProblemNoted DateDiagnosed RtbwBvqzlnkneysi04/04/2025Family history of early CAD 03/20/2024lass 1 obesity due to excess calories with serious comorbidity and body mass index (BMI) of 32.0 to 32.9 in adult03/20/2024NAFL (nonalcoholic fatty liver)09/19/2023nnual physical exam09/19/2023 Assessment & Plan (09/19/2023 2:18 PM EDT): Due for labs. Discussed proper diet and regular aerobic exercise. Need aerobic exercise 5-6 days a week for 30 minutes at a time. Smaller portions and limit total calories. Colonoscopy after age 45. Tetanus every 10 years. Advised not to smoke. Dermatitis, xxeyfsiorer33/05/2024 Assessment & Plan (09/19/2023 2:18 PM EDT): Rash likely eczema and use steroid cream. Chest pain, okltzfj4406/20/2023 Assessment & Plan (03/20/2024 4:17 PM EST): Continued chest pain and risk factors include dyslipidemia, obesity, and family history. Check treadmill cardiolyte stress test. Resolved Problems ProblemNoted DateDiagnosed DateResolved DateRUQ abdominal pain06/20/2023 09/19/2023 Assessment & Plan (06/20/2023 3:06 PM EDT): Developed pain and appears to be lump in abdominal wall. Differential includes ventral hernia, lipoma, or gallbladder etiology. Check US. Try heat to abdominal wall. If persists will need to see surgeon. Social History Tobacco UseTypesPacks/DayYears UsedDateSmoking Tobacco: NeverSmokeless Tobacco: CurrentSnuff Tobacco Cessation:Ready to Q uit: Not Asked Sex and Gender InformationValueDate RecordedSex Assigned at BirthNot on file Legal VteDscu4004/28/2022 6:58 PM EDTGender BcwuzimvGpyd73/05/2024 2:34 PM EDT Sexual OrientationNot on file Last Filed Vital Signs Vital SignReadingTime TakenCommentsBlood Dhredbnl999/64003/20/2024 3:33 PM EST Biaxr263803/20/2024 3:33 PM WQTHdplayuwgyu96.6 ??C (97.8 ??F)03/20/2024 3:33 PM ESTRespiratory Poso453603/20/2024 3:33 PM ESTOxygen Luuqlovrxi61%03/20/2024 3:33 PM ESTInhaled Oxygen Concentration--Jsruns892 kg (254 lb)03/20/2024 3:33 PM EST Qnbwgn667 cm (6' 2 )03/20/2024 3:33 PM ESTBody Mass Index32.61003/20/2024 3:33 PM EST Plan of Treatment Not on file Insurance Care Teams Team MemberRelationshipSpecialtyStart DateEnd Date Francisco Muse MD PCP - GeneralFamily Medicine05/30/23
--- NOTE | 2025-01-19 08:14 | US_ITS ---
The [address] [address] Patient Name: LULY SANDHU MRN: [id number] date: 1990 Sex: M Assigned Patient Location: [place] Current Patient Location: [place] Accession/Order Number: [id number] Exam Date: 01/19/2025 08:18 Report Date: 01/19/2025 11:58 At the request of: DAVI RODRIGUEZ MD Procedure: US right upper quadrant Ultrasound right upper quadrant INDICATION: Right upper quadrant abdominal pain COMPARISON: 07/16/2023 FINDINGS: Heterogeneous liver parenchyma. Diffusely increased echogenicity suggestive of fatty infiltration. Normal hepatopedal blood flow within the visualized portal system. Gallbladder unremarkable. Negative Cortez's sign. Wall 1.4 mm. Common bile duct 2.1 m. Pancreas poorly visualized due to bowel gas. Right kidney unremarkable in size. No hydronephrosis. No free fluid within the upper quadrant identified. US/US right upper quadrant IMPRESSION: Fatty infiltration liver. Obscured pancreas.. Otherwise unremarkable right upper quadrant ultrasound. Impression dictated by: Stephen Charles M.D. 01/19/2025 11:58 AM Dictation Location: [place] [address] Electronically authenticated by: [id number] Y Date: 01/19/2025 11:58
[2025-01-19 09:14] LABS: Hematocrit 48.2 % (42.0-54.0); Hemoglobin 15.8 g/dL (14.0-18.0); Immature Granulocytes Abs Auto 0.02 10^3/uL (0.00-0.03); Immature Granulocytes Pct Auto 0.3 % (0.0-0.5); Lymphocytes Absolute Auto 1.9 10^3/uL (1.2-3.8); Mean Corpuscular HGB Conc 32.8 g/dL (29.9-35.2); Mean Corpuscular Hemoglobin 29.3 pg (25.9-34.0); Mean Corpuscular Volume 89.3 fL (80.0-94.0); Platelet Count 256 10^3/uL (150-450); Red Blood Count 5.40 10^6/uL (4.70-6.10); White Blood Count 7.8 10^3/uL (4.0-11.0)
[2025-01-19 09:45] LABS: Alanine Aminotransferase 30 U/L (16-63); Albumin Globulin Ratio 0.9; Albumin Level 3.6 g/dL (3.4-5.0); Alkaline Phosphatase 108 U/L (46-116); Anion Gap 11.2; Aspartate Amino Transferase 17 U/L (15-37); Blood Urea Nitrogen 20.0 mg/dL (7.0-18.0); Calcium 9.2 mg/dL (8.5-10.1); Carbon Dioxide 27.4 mmol/L (21.0-32.0); Chloride 110 mmol/L (98-107); Cholesterol 222 mg/dL (<=200); Estimated GFR (African America >60 (>=60 mL/min/1.73m^2); Estimated GFR (Non-African Ame >60 (>=60 mL/min/1.73m^2); Globulin 3.9 g/dL; Glucose 97 mg/dL (74-106); HDL Cholesterol 47 mg/dL (40-60); Potassium 5.6 mmol/L (3.5-5.1); Sodium 143 mmol/L (136-145); Thyroid Stimulating Hormone 3.534 uIU/mL (0.358-3.740); Total Protein 7.5 g/dL (6.4-8.2); Triglycerides 144 mg/dL (<=150); VLDL CHOLESTEROL 28.8 mg/dL
== END 2025-01-19 07:55 | disposition home or self-care (01) ==
LOC: US 07:54
PROVIDERS: PCP Family Medicine; Visit Provider Family Medicine
DX: Z00.00 Encounter for general adult medical examination without abnormal findings (principal); R10.11 Right upper quadrant pain; K76.0 Fatty (change of) liver, not elsewhere classified
CPT/HCPCS: 36415; 76705; 80053; 80061; 83036; 84443; 85025